=== PATIENT | female | born 1960 | race Caucasian/White ===

== ENCOUNTER 2017-03-11 19:51 | Observation (INO) | payer OTHER ==
[2017-03-11] MEDS ORDERED: MORPHINE SULFATE 2 MG/ML SYRINGE IVP STA (20:26)
[2017-03-11] MEDS ORDERED: NITROGLYCERIN OINT 1 INCH/GM PACKET TOPICAL STA (20:26)
[2017-03-11] MEDS ORDERED: ACETAMINOPHEN TAB 500 MG TAB PO STA (20:27)
[2017-03-11 20:36] LABS: Basophils # (A) 0.1 k/uL (0-0.2); Basophils % (A) 2 %; CH 31.1; CHCM 33.9; Eosinophils # (A) 0.4 k/uL (0-0.7); Eosinophils % (A) 5 %; HDW 2.41; HGB 12.8 gm/dL (11.4-16.0); Luc # (Auto) 0.12; Luc % (Auto) 2; Lymphocytes # (A) 2.7 k/uL (1.0-4.8); Lymphocytes % (A) 34 %; MCHC 33.6 g/dL (31.0-37.0); MCV 92.3 fL (80.0-100.0); Mean Platelet Volume 7.4; Monocytes # (A) 0.6 k/uL (0-1.0); Monocytes % (A) 7 %; Neutrophils # (A) 3.9 k/uL (1.3-7.7); Neutrophils % (A) 50 %; RBC 4.12 m/uL (3.80-5.40); RDW 13.1 % (11.5-15.5); WBC 7.8 k/uL (3.8-10.6); WBC (Perox) 7.99
[2017-03-11 20:45] LABS: ALT 22 U/L (9-52); AST 18 U/L (14-36); Alkaline Phosphatase 65 U/L (38-126); Anion Gap 7 mmol/L; Blood Urea Nitrogen 8 mg/dL (7-17); Calcium 9.1 mg/dL (8.4-10.2); Carbon Dioxide 21 mmol/L (22-30); Chloride 114 mmol/L (98-107); Glucose 99 mg/dL (74-99); Magnesium 1.9 mg/dL (1.6-2.3); Non-African American GFR(MDRD) >60 (>60 ml/min/1.73 sqM); Sodium 142 mmol/L (137-145); Total Bilirubin 0.3 mg/dL (0.2-1.3); Total Protein 6.5 g/dL (6.3-8.2)
[2017-03-11 20:55] LABS: Creatine Kinase 110 U/L (30-135)
[2017-03-11 20:57] LABS: Partial Thromboplastin Time 21.5 sec (22.0-30.0); Prothrombin Time 10.1 sec (9.0-12.0)
[2017-03-11 21:08] LABS: Creatine Kinase MB 1.1 ng/mL (0.0-2.4); Troponin I <0.012 ng/mL (0.000-0.034)
--- NOTE | 2017-03-11 21:17 | XR ---
EXAMINATION TYPE: XR chest 2V DATE OF EXAM: 03/11/2017 COMPARISON: 04/04/2016 HISTORY: Chest pain TECHNIQUE: Frontal and lateral views of the chest are obtained. FINDINGS: Heart and mediastinum are normal. Lungs are clear of consolidation. There are no hilar mas ses. There are chest leads. Bony thorax is intact. IMPRESSION: No active cardiopulmonary disease. No change.
--- NOTE | 2017-03-11 21:18 | ED ---
Chest Pain HPI - General Chief Complaint: Chest Pain Stated Complaint: chest pain Time Seen by Provider: 03/11/17 19:59 Source: patient, EMS Mode of arrival: EMS Limitations: no limitations - History of Present Illness Initial Comments: This 56-year-old female presents with a complaint of some chest pain. She states that this is in the midsternal radiation and it seems to radiate into her neck and into her back. She describes it as a sharp nonpleuritic type of pain which is associated with some mild shortness of breath. She denies any leg pain or swelling or history DVT or PE. She is a strong history of cardiac disease. She apparently has 2 stents and another vessel with 100% blockage. Her last stress test was approximately one year ago. She did take a sublingual nitroglycerin at home with some moderate relief. She received an aspirin via EMS. She also received 4 modems morphine per EMS. No other complaints or modifying factors. - Related Data Home Medications Medication Instructions Recorded Confirmed Aspirin EC [Ecotrin Low Dose] 81 mg PO QAM 12/19/14 03/11/17 ALPRAZolam [Xanax] 0.5 mg PO DAILY PRN 03/11/17 03/11/17 ALPRAZolam [Xanax] 1 mg PO HS 03/11/17 03/11/17 Atorvastatin Calcium [Lipitor] 20 mg PO HS 03/11/17 03/11/17 Clopidogrel [Plavix] 75 mg PO QAM 03/11/17 03/11/17 Fluticasone/Vilanterol [Breo 1 puff INHALATION RT-DAILY 03/11/17 03/11/17 Ellipta 100-25 Mcg Inhaler] Ibuprofen 800 mg PO TID PRN 03/11/17 03/11/17 Omeprazole [PriLOSEC] 20 mg PO DAILY PRN 03/11/17 03/11/17 Tiotropium [place] [Spiriva] 1 cap INHALATION RT-DAILY 03/11/17 03/11/17 Triamcinolone 0.1% Cream [Kenalog] 1 applic TOPICAL BID 03/11/17 03/11/17 Previous Rx's Medication Instructions Recorded Metoprolol Tartrate [Lopressor] 25 mg PO BID #60 tab 09/20/14 Nitroglycerin Sl Tabs [Nitrostat] 0.4 mg SUBLINGUAL Q5M PRN #25 tab 09/20/14 Allergies Allergy/AdvReac Type Severity Reaction Status Date / Time codeine Allergy Rash/Hives Verified 03/11/17 19:58 sumatriptan [From Imitrex] AdvReac Nausea & Verified 03/11/17 19:58 Vomiting Review of Systems ROS Statement: Those systems with pertinent positive or pertinent negative responses have been documented in the HPI. ROS Other: All systems not noted in ROS Statement are negative. Past Medical History Past Medical History: Asthma, Hyperlipidemia, Hypertension, Myocardial Infarction ([place]) Additional Past Medical History / Comment(s): diverticulosis, nephrolithiasis- stones in both kidneys with L side worse, migraines Last Myocardial Infarction Date:: 09/17/14 History of Any Multi-Drug Resistant Organisms: None Reported Past Surgical History: Heart Catheterization With Stent, Hysterectomy Additional Past Surgical History / Comment(s): Lithotripsy, R breast 4 tumors removed all benign, Tumor removed left ear, D & C x 4, colonoscopy, kidney stent , lung Past Anesthesia/Blood Transfusion Reactions: No Reported Reaction Additional Past Anesthesia/Blood Transfusion Reaction / Comment(s): Pt has never recieved blood. Date of Last Stent Placement:: Past Psychological History: Anxiety, Depression Smoking Status: Current every day smoker Past Alcohol Use History: None Reported Past Drug Use History: None Reported - Past Family History Father Family Medical History: Cancer, Myocardial Infarction ([place]) Additional Family Medical History / Comment(s): Father had throat and lung cancer. He was a smoker. Mother Family Medical History: Coronary Artery Disease (CAD), Hypertension Additional Family Medical History / Comment(s): Mother has a hiatal hernia that affects her breathing. She also has heart problems General Exam - General Exam Comments Initial Comments: GENERAL: The patient is well nourished and well hydrated. VITAL SIGNS: Heart rate, blood pressure, respiratory rate reviewed as recorded in nurse's notes. EYES: Pupils are round and reactive. Extraocular movements are intact. No conjunctival / lid redness or swelling. ENT: No external evidence of injury, swelling, or ecchymosis. Airway is patent. Throat is clear. NECK: Nontender. No swelling or evidence of injury. No subcutaneous emphysema. Trachea is midline. No thyroid mass. HEART: Regular rate and rhythm. Good peripheral pulses. LUNGS/CHEST: Breath sounds clear and equal bilaterally. No rales, rhonchi, or wheezes. No ecchymosis, subcutaneous emphysema, or tenderness. ABDOMEN: Abdomen soft without tenderness. No palpable masses or organomegaly. No peritoneal signs. No abdominal wall swelling or ecchymosis. EXTREMITIES: No extremity tenderness. Normal muscle tone and function. No thoracolumbar tenderness. NEUROLOGIC: Sensation is grossly intact. Cranial nerve exam reveals face is symmetrical, tongue is midline, speech is clear. SKIN: No abrasions or ecchymosis is noted. No induration or masses noted. PSYCHIATRIC: Alert and oriented. Appropriate behavior and judgment. Limitations: no limitations Course Vital Signs 03/11/17 03/11/17 03/11/17 19:52 20:30 20:47 Temperature 98.6 F Pulse Rate 91 74 94 Respiratory 20 16 16 Rate Blood Pressure 137/93 126/87 126/95 O2 Sat by Pulse 95 96 95 Oximetry Chest Pain MDM - MDM The patient was seen and examined. All diagnostics were reviewed. An IV is established and she receives some morphine intravenously as well as Nitropaste. She was given Tylenol for headache. She just received an aspirin so additional aspirin was not given. The EKG shows a normal sinus rhythm at a rate of 77. There is no acute ST-T wave changes identified. The chest x-ray does not show any acute abnormalities. The cardiac profile labs are all essentially within normal limits with a negative d-dimer. Troponin is negative as well. It is felt as though she would benefit from admission to the hospital. She is agreeable with this plan. The case will be discussed with internal medicine shortly and she'll be admitted as an observation admission for further evaluation and treatment. Disposition Clinical Impression: Chest pain, Unstable angina Disposition: ADMITTED IP TO THIS [facility] Condition: Fair Time of Disposition: 21:18 Decision Date: 03/11/17 Decision Time: 21:18
[2017-03-11] MEDS ORDERED: HEPARIN SODIUM,PORCINE 5,000 UNIT/ML 1 ML VIAL IV ONE (21:19)
[2017-03-11] MEDS ORDERED: NITROGLYCERIN SL TABS 0.4 MG TAB SUBLINGUAL PRN (21:19)
[2017-03-11] MEDS ORDERED: HEPARIN SODIUM,PORCINE 5,000 UNIT/ML 1 ML VIAL IV PRN (21:19)
[2017-03-11] MEDS ORDERED: PANTOPRAZOLE 40 MG TABLET PO PRN (21:21)
[2017-03-11] MEDS ORDERED: ALPRAZolam 0.5 MG TAB PO PRN (21:21)
[2017-03-11] MEDS ORDERED: IBUPROFEN 800 MG TAB PO PRN (21:21)
[2017-03-11] MEDS ORDERED: NICOTINE 14MG/24HR PATCH TRANSDERM STA (21:22)
[2017-03-11] MEDS ORDERED: HEPARIN SODIUM,PORCINE/D5W PMX 25,000 UNIT in DEXTROSE/WATER 1 500ML.BAG IV SCH (21:30)
[2017-03-11] MEDS: ALPRAZolam 0.5 MG TAB PO SCH ×2 (22:59→23:04)
[2017-03-11] MEDS: MORPHINE SULFATE 4 MG/ML SYRINGE IV PRN (23:00)
[2017-03-11 23:31] VITALS: BMI 19.2
[2017-03-12] MEDS: NITROGLYCERIN OINT 1 INCH/GM PACKET TOPICAL SCH ×3 (01:41→14:53)
[2017-03-12] MEDS: MORPHINE SULFATE 4 MG/ML SYRINGE IV PRN ×2 (01:42→06:41)
[2017-03-12] MEDS ORDERED: SYMBICORT 80-4.5 MCG INHALER INHALATION PRN (03:28)
[2017-03-12 03:38] LABS: Mean Platelet Volume 7.5
[2017-03-12 03:52] LABS: Cholesterol 218 mg/dL (<200); HDL Cholesterol 41 mg/dL (40-60)
[2017-03-12 03:57] LABS: Creatine Kinase 89 U/L (30-135)
[2017-03-12 04:10] LABS: Creatine Kinase MB 1.2 ng/mL (0.0-2.4); Troponin I <0.012 ng/mL (0.000-0.034)
[2017-03-12 08:00] VITALS: RESP 18
[2017-03-12] MEDS ORDERED: SYMBICORT 80-4.5 MCG INHALER INHALATION SCH (08:00)
[2017-03-12] MEDS ORDERED: TIOTROPIUM 18 MCG/PUFF INHALER INHALATION SCH (08:00)
[2017-03-12] MEDS ORDERED: TRIAMCINOLONE 0.1% CREAM 80 GM TUBE TOPICAL SCH (09:00)
[2017-03-12] MEDS ORDERED: METOPROLOL TARTRATE 25 MG TAB PO SCH (09:00)
[2017-03-12] MEDS ORDERED: CLOPIDOGREL 75 MG TAB PO SCH (09:00)
[2017-03-12] MEDS ORDERED: ASPIRIN 325 MG TAB PO SCH (09:00)
[2017-03-12 09:52] LABS: Creatine Kinase 89 U/L (30-135)
[2017-03-12 10:05] LABS: Creatine Kinase MB 1.2 ng/mL (0.0-2.4); Troponin I <0.012 ng/mL (0.000-0.034)
[2017-03-12] MEDS ORDERED: DOBUTamine DRIP for NUC MED 500 MG in DEXTROSE/WATER 1 250ML.BAG IV ONE (10:50)
[2017-03-12] MEDS ORDERED: ACETAMINOPHEN TAB 500 MG TAB PO PRN (11:20)
[2017-03-12] MEDS: KETOROLAC 30 MG/ML 1 ML VIAL IVP STA ×2 (11:22→11:35)
--- NOTE | 2017-03-12 11:36 | ECHOF ---
Referral Reason:cp MEASUREMENTS -------- HEIGHT: 157.5 cm WEIGHT: 62.6 kg BP: 91/58 IVSd: 1.0 cm (0.6 - 1.1) LVIDd: 4.8 cm (3.9 - 5.3) LVPWd: 1.1 cm (0.6 - 1.1) IVSs: 1.1 cm LVIDs: 3.8 cm LVPWs: 1.4 cm LA Diam: 3.2 cm (2.7 - 3.8) Ao Diam: 2.9 cm (2.0 - 3.7) AV Cusp: 1.8 cm (1.5 - 2.6) LA Diam: 3.3 cm (2.7 - 3.8) MV EXCURSION: 14.230 mm (> 18.000) MV EF SLOPE: 96 mm/s (70 - 150) EPSS: 0.9 cm MV E David: 0.61 m/s MV DecT: 211 ms MV A David: 0.62 m/s MV E/A Ratio: 0.98 AR PHT: 525 ms RAP: 5.00 mmHg RVSP: 13.53 mmHg FINDINGS -------- Sinus rhythm. This was a technically adequate study. There is mild concentric left ventricular hypertrophy. Overall left ventricular systolic function is low-normal with, an EF between 50 - 55 %. The right ventricle is normal in size. The left atrial size is normal. The right atrial size is normal. There is mild aortic valve sclerosis. There is no evidence of aortic regurgitation. Mild mitral annular calcification present. Mild mitral regurgitation is present. Mild tricuspid regurgitation present. There is no evidence of pulmonary hypertension. The right ventricular systolic pressure, as measured by Doppler, is 13.53mmHg. There is no pulmonic regurgitation present. The aortic root size is normal. There is no pericardial effusion. CONCLUSIONS -------- 1. There is mild concentric left ventricular hypertrophy. 2. The aortic root size is normal. 3. There is no pericardial effusion. 4. Overall left ventricular systolic function is low-normal with, an EF between 50 - 55 %. 5. There is mild aortic valve sclerosis. 6. Mild mitral annular calcification present. 7. Mild mitral regurgitation is present. 8. Mild tricuspid regurgitation present. 9. There is no evidence of pulmonary hypertension. 10. The right ventricular systolic pressure, as measured by Doppler, is 13.53mmHg. 11. There is no pulmonic regurgitation present. CURTAIN INSPECTOR: Evelyn Grace RDCS
[2017-03-12] MEDS ORDERED: ACETAMINOPHEN IV (For NPO) 1,000 MG in EMPTY BAG 1 BAG IVPB STA (12:17)
[2017-03-12 12:35] VITALS: BP 119/62; PULSE 88; TEMP 97.4
[2017-03-12] MEDS ORDERED: BUTA/APAP/CAF/COD 50-325-40-30 CAP PO STA (14:24)
--- NOTE | 2017-03-12 14:26 | P.CRDCN ---
History of Present Illness Consult date: 03/12/17 History of present illness: This is a 56-year-old female who presented to the emergency department with complaints of chest pain with radiation into the jaw. She states she was out in her garage doing some organizing when the pain came on. She took sublingual nitroglycerin and sat down and the pain subsided. She denies nausea, vomiting, dizziness, diaphoresis or shortness of breath associated with the pain. She has a significant history of coronary artery disease with stent placement, anxiety and chronic tobacco abuse. She follows with Dr. ASTRID Berry in the office. She also states she has been under extreme stress lately with her family. Her aunt's in the intensive care unit with a very poor prognosis and her uncle was just recently hospitalized for heart attack for which she is the primary caregiver. She states she recently had a nodule removed from the right lower lobe, and was told she has 1-2 nodules in the right upper lobe. Biopsies of removed nodule is negative for cancer. Troponins are negative 3, triglycerides 274, LDL 122, HDL 41, total cholesterol 218, x-ray shows no acute cardio pulmonary disease, EKG shows no ST-T elevations no QRS abnormalities and a normal sinus mechanism. She takes Prilosec 20 mg by mouth daily as needed, sublingual nitroglycerin as needed, Lopressor 25 mg by mouth twice a day, Plavix 75 mg by mouth daily, Lipitor 20 mg by mouth daily, aspirin 81 mg by mouth daily. He is also a chronic tobacco abuser. Review of Systems REVIEW OF SYSTEMS: Patient denies any chest discomfort. No shortness of breath. No diaphoresis. He denies dizziness, blurred vision, double vision. She complains of dyspnea on exertion due to recent pulmonary disease. Patient denies any stomach discomfort. No nausea, vomiting. No hematochezia. No hematemesis. Denies any black stools or blood in his stools. No syncope. No palpitations. No cough. No recent fever or chills. Denies dysuria or hematuria. No muscle weakness or numbness. Past Medical History Past Medical History: Asthma, COPD, Hyperlipidemia, Hypertension, Myocardial Infarction ([place]), Skin Disorder Additional Past Medical History / Comment(s): diverticulosis, nephrolithiasis- stones in both kidneys with L side worse, migraines, skin sensitive to sun exposure Last Myocardial Infarction Date:: 09/17/14 History of Any Multi-Drug Resistant Organisms: None Reported Past Surgical History: Cholecystectomy, Heart Catheterization With Stent, Hysterectomy Additional Past Surgical History / Comment(s): Lithotripsy, R breast 4 tumors removed all benign, Tumor removed left ear, D & C x 4, colonoscopy egd, kidney stent, lung RLL mass. Past Anesthesia/Blood Transfusion Reactions: No Reported Reaction Additional Past Anesthesia/Blood Transfusion Reaction / Comment(s): Pt has never recieved blood. Date of Last Stent Placement:: Past Psychological History: Anxiety, Depression Additional Psychological History / Comment(s): Pt states she takes xanax and recently had it increased after her heart attack and that it helps with the anxiety. She lives at home with 4 children ages ranging between 4 yr old to 19 yr old. The 19 yr old is her nephew and the others are her own children. She is normally independent. She drives a car. She uses no assistive devices and has no home care. Smoking Status: Current every day smoker Past Alcohol Use History: None Reported Additional Past Alcohol Use History / Comment(s): Pt states she started smoking at age 19 yrs and has recently decreased her smoking to less than 1/2 ppd. She is trying to quit. Past Drug Use History: None Reported - Past Family History Father Family Medical History: Cancer, Myocardial Infarction ([place]) Additional Family Medical History / Comment(s): Father had throat and lung cancer. He was a smoker. Mother Family Medical History: Coronary Artery Disease (CAD), Hypertension Additional Family Medical History / Comment(s): Mother has a hiatal hernia that affects her breathing. She also has heart problems Medications and Allergies Home Medications Medication Instructions Recorded Confirmed Type Aspirin EC [Ecotrin Low Dose] 81 mg PO QAM 12/19/14 03/11/17 History ALPRAZolam [Xanax] 0.5 mg PO DAILY PRN 03/11/17 03/11/17 History ALPRAZolam [Xanax] 1 mg PO HS 03/11/17 03/11/17 History Atorvastatin Calcium [Lipitor] 20 mg PO HS 03/11/17 03/11/17 History Clopidogrel [Plavix] 75 mg PO QAM 03/11/17 03/11/17 History Fluticasone/Vilanterol [Breo 1 puff INHALATION RT-DAILY 03/11/17 03/11/17 History Ellipta 100-25 Mcg Inhaler] Ibuprofen 800 mg PO TID PRN 03/11/17 03/11/17 History Omeprazole [PriLOSEC] 20 mg PO DAILY PRN 03/11/17 03/11/17 History Tiotropium [place] [Spiriva] 1 cap INHALATION RT-DAILY 03/11/17 03/11/17 History Triamcinolone 0.1% Cream [Kenalog] 1 applic TOPICAL BID 03/11/17 03/11/17 History Allergies Allergy/AdvReac Type Severity Reaction Status Date / Time codeine Allergy Rash/Hives Verified 03/11/17 19:58 sumatriptan [From Imitrex] AdvReac Nausea & Verified 03/11/17 19:58 Vomiting Physical Exam Vitals: Vital Signs Temp Pulse Pulse Resp BP BP BP 03/12/17 08:20 96/51 03/12/17 08:00 18 03/12/17 07:59 97.7 F 75 18 79/49 73/47 03/12/17 04:12 97.9 F 76 16 91/58 03/12/17 04:00 74 16 03/11/17 23:30 84 16 03/11/17 22:49 76 16 115/71 03/11/17 22:06 98.0 F 86 16 129/75 03/11/17 20:47 94 16 126/95 03/11/17 20:30 74 16 126/87 03/11/17 19:52 98.6 F 91 20 137/93 Pulse Ox 03/12/17 08:20 03/12/17 08:00 03/12/17 07:59 95 03/12/17 04:12 93 L 03/12/17 04:00 03/11/17 23:30 03/11/17 22:49 93 L 03/11/17 22:06 97 03/11/17 20:47 95 03/11/17 20:30 96 03/11/17 19:52 95 Intake and Output 03/11/17 03/12/17 03/12/17 22:59 06:59 14:59 Intake Total 112.149 Balance 112.149 Intake: Intake, IV Titration 112.149 Amount Heparin Sodium,Porcine/ 112.149 D5w Pmx 25,000 unit In Dextrose/Water 1 500ml. bag @ 12 UNITS/KG/HR 15. 02 mls/hr IV .Q24H [facility] Rx #:[id number] Other: # Voids 1 Weight 62.596 kg 62.596 kg GENERAL: This is a 56-year-old female in no apparent distress at the time of my examination. She appears significantly older than stated age. HEENT: Head is atraumatic, normocephalic. Pupils are equal, round. Sclerae anicteric. Conjunctivae are clear. Mucous membranes of the mouth are moist. Neck is supple. There is no jugular venous distention. No carotid bruit is heard. LUNGS: Clear to auscultation no wheezes, rales or rhonchi. No chest wall tenderness is noted on palpation or with deep breathing. HEART: Regular rate and rhythm without murmurs, rubs or gallops. S1 and S2 heard. ABDOMEN: Soft, nontender. Bowel sounds are heard. No organomegaly noted. EXTREMITIES: 2+ peripheral pulses with no evidence of peripheral edema and no calf tenderness noted. NEUROLOGIC: Patient is awake, alert and oriented x3. Results 03/12/17 03:17 03/11/17 20:29 Cardiac Enzymes 03/11/17 03/11/17 03/12/17 Range/Units 20:29 20:29 : AST 18 (14-36) U/L CK-MB (CK-2) 1.1 1.2 (0.0-2.4) ng/mL Troponin I <0.012 <0.012 (0.000-0.034) ng/mL Coagulation 03/11/17 03/12/17 Range/Units 20:29 03:17 PT 10.1 (9.0-12.0) sec APTT 21.5 L 41.6 H (22.0-30.0) sec Lipids 03/12/17 Range/Units 03:17 Triglycerides 274 H (<150) mg/dL Cholesterol 218 H (<200) mg/dL HDL Cholesterol 41 (40-60) mg/dL CBC 03/11/17 03/12/17 Range/Units 20:29 03:17 WBC 7.8 (3.8-10.6) k/uL RBC 4.12 (3.80-5.40) m/uL Hgb 12.8 (11.4-16.0) gm/dL Hct 38.0 (34.0-46.0) % Plt Count 295 257 (150-450) k/uL Comprehensive Metabolic Panel 03/11/17 Range/Units 20:29 Sodium 142 (137-145) mmol/L Potassium 4.0 (3.5-5.1) mmol/L Chloride 114 H (98-107) mmol/L Carbon Dioxide 21 L (22-30) mmol/L BUN 8 (7-17) mg/dL Creatinine 0.83 (0.52-1.04) mg/dL Glucose 99 (74-99) mg/dL Calcium 9.1 (8.4-10.2) mg/dL AST 18 (14-36) U/L ALT 22 (9-52) U/L Alkaline Phosphatase 65 (38-126) U/L Total Protein 6.5 (6.3-8.2) g/dL Albumin 3.9 (3.5-5.0) g/dL Current Medications Generic Name Dose Route Start Last Admin Trade Name Freq PRN Reason Stop Dose Admin Alprazolam 0.5 mg 03/11/17 21:21 Xanax PO DAILY PRN Anxiety Alprazolam 1 mg 03/12/17 21:00 03/11/17 23:04 Xanax PO 1 mg HS [facility] Administration Aspirin 325 mg 03/12/17 09:00 Aspirin PO DAILY [facility] Atorvastatin Calcium 20 mg 03/12/17 21:00 Lipitor PO HS [facility] Budesonide/Formoterol Fumarate 2 puff 03/12/17 08:00 Symbicort 80-4.5 Mcg Inhaler INHALATION RT-BID [facility] Clopidogrel Bisulfate 75 mg 03/12/17 09:00 Plavix PO QAM [facility] Heparin Sodium (Porcine) 0 unit 03/11/17 21:19 Heparin IV Q6HR PRN Low PTT Protocol Heparin Sodium/Dextrose 25,000 500 mls @ 15.02 mls/hr 03/11/17 21:30 05:22 unit/ IV Solution IV 13.91 units/kg/hr .Q24H CM 17.42 mls/hr Protocol Titration 12 UNITS/KG/HR Ibuprofen 800 mg 03/11/17 21:21 Motrin PO TID PRN Pain Metoprolol Tartrate 25 mg 03/12/17 09:00 Lopressor PO BID CM Morphine Sulfate 4 mg 03/11/17 21:19 03/12/17 06:41 Morphine Sulfate (Inj) IV 4 mg Q3H PRN Administration Chest Pain Nitroglycerin 1 inch 03/12/17 00:00 03/12/17 06:42 Nitro-Bid Oint TOPICAL Not Given Q6HR [facility] Nitroglycerin 0.4 mg 03/11/17 21:19 Nitrostat SUBLINGUAL Q5M PRN Chest Pain Pantoprazole Sodium 40 mg 03/11/17 21:21 Protonix PO DAILY PRN Indigestion Tiotropium [place] 1 puff 03/12/17 08:00 Spiriva INHALATION RT-DAILY CM Triamcinolone Acetonide 1 applic 03/12/17 09:00 03/12/17 06:41 Kenalog TOPICAL 1 applic BID CM Administration Intake and Output 03/11/17 03/12/17 03/12/17 22:59 06:59 14:59 Intake Total 112.149 Balance 112.149 Intake: Intake, IV Titration 112.149 Amount Heparin Sodium,Porcine/ 112.149 D5w Pmx 25,000 unit In Dextrose/Water 1 500ml. bag @ 12 UNITS/KG/HR 15. 02 mls/hr IV .Q24H [facility] Rx #:[id number] Other: # Voids 1 Weight 62.596 kg 62.596 kg 03/12/17 03:17 03/11/17 20:29 - Imaging and Cardiology Stress echo: pending (Mild concentric left ventricular hypertrophy, ejection fraction 50-55%, mild aortic valve sclerosis, mild mitral calcification, mild mitral regurgitation, mild tricuspid regurgitation, no evidence of pulmonary hypertension with a right ventricular systolic pressure 13.53 mmHg.) Echo: report reviewed - EKG Interpretation EKG: sinus rhythm, normal QRS, normal ST/T, no acute changes Assessment and Plan Plan: ASSESSMENT 1. Chest pain, atypical 2. History of coronary artery disease with stent placement 2014 3. Dyslipidemia 4. Anxiety 5. Chronic tobacco abuse PLAN We will obtain an echocardiogram, and a dobutamine stress echo will be performed. We will increase patient's Lipitor to 80 mg by mouth daily. If her stress test is normal she can be discharged home. She should follow-up with Dr. ASTRID Berry in 2 weeks. Nurse Practitioner note has been reviewed, I agree with a documented findings and plan of care. Patient was seen and examined.
[2017-03-12] MEDS ORDERED: ONDANSETRON 4 MG/2 ML VIAL IVP STA (14:30)
[2017-03-12] MEDS ORDERED: ATORVASTATIN 80 MG TAB PO SCH (14:30)
--- NOTE | 2017-03-12 16:57 | P.HPIM ---
History of Present Illness 56-year-old female who presented to the emergency department with complaints of chest pain pressure-like sensation moderate with radiation into the jaw. She states she was out in her garage doing some organizing when the pain came on. She took sublingual nitroglycerin and sat down and the pain subsided. Her pain completely resolved at this point of time her chest pain is nonpleuritic not associated with food. She denies nausea, vomiting, dizziness, diaphoresis or shortness of breath associated with the pain. She has a significant history of coronary artery disease with stent placement, anxiety and chronic tobacco abuse. She also states she has been under extreme stress lately with her family. . Biopsies of removed nodule is negative for cancer. Troponins are negative 3, , x-ray shows no acute cardio pulmonary disease, EKG shows no ST-T elevations no QRS abnormalities and a normal sinus mechanism. . He is also a chronic tobacco abuser. Patient is complaining of severe headache secondary to her migraine which was precipitated by sublingual nitroglycerin or nitroglycerin patch she was given here Review of Systems REVIEW OF SYSTEMS: CONSTITUTIONAL: No fever, no malaise, no fatigue. HEENT: No recent visual problems or hearing problems. Denied any sore throat. CARDIOVASCULAR: No chest pain, orthopnea, PND, no palpitations, no syncope. PULMONARY: No shortness of breath, no cough, no hemoptysis. GASTROINTESTINAL: No diarrhea, no nausea, no vomiting, no abdominal pain. Normoactive bowel sounds. NEUROLOGICAL: no weakness, no numbness. HEMATOLOGICAL: Denies any bleeding or petechiae. GENITOURINARY: Denies any burning micturition, frequency, or urgency. MUSCULOSKELETAL/RHEUMATOLOGICAL: Denies any joint pain, swelling, or any muscle pain. ENDOCRINE: Denies any polyuria or polydipsia. The rest of the 14-point review of systems is negative. Past Medical History Past Medical History: Asthma, COPD, Hyperlipidemia, Hypertension, Myocardial Infarction (NH), Skin Disorder Additional Past Medical History / Comment(s): diverticulosis, nephrolithiasis- stones in both kidneys with L side worse, migraines, skin sensitive to sun exposure Last Myocardial Infarction Date:: 09/17/14 History of Any Multi-Drug Resistant Organisms: None Reported Past Surgical History: Cholecystectomy, Heart Catheterization With Stent, Hysterectomy Additional Past Surgical History / Comment(s): Lithotripsy, R breast 4 tumors removed all benign, Tumor removed left ear, D & C x 4, colonoscopy egd, kidney stent, lung RLL mass. Past Anesthesia/Blood Transfusion Reactions: No Reported Reaction Additional Past Anesthesia/Blood Transfusion Reaction / Comment(s): Pt has never recieved blood. Date of Last Stent Placement:: Past Psychological History: Anxiety, Depression Additional Psychological History / Comment(s): Pt states she takes xanax and recently had it increased after her heart attack and that it helps with the anxiety. She lives at home with 4 children ages ranging between 4 yr old to 19 yr old. The 19 yr old is her nephew and the others are her own children. She is normally independent. She drives a car. She uses no assistive devices and has no home care. Smoking Status: Current every day smoker Past Alcohol Use History: None Reported Additional Past Alcohol Use History / Comment(s): Pt states she started smoking at age 19 yrs and has recently decreased her smoking to less than 1/2 ppd. She is trying to quit. Past Drug Use History: None Reported - Past Family History Father Family Medical History: Cancer, Myocardial Infarction (NH) Additional Family Medical History / Comment(s): Father had throat and lung cancer. He was a smoker. Mother Family Medical History: Coronary Artery Disease (CAD), Hypertension Additional Family Medical History / Comment(s): Mother has a hiatal hernia that affects her breathing. She also has heart problems Medications and Allergies Home Medications Medication Instructions Recorded Confirmed Type Aspirin EC [Ecotrin Low Dose] 81 mg PO QAM 12/19/14 03/11/17 History ALPRAZolam [Xanax] 0.5 mg PO DAILY PRN 03/11/17 03/11/17 History ALPRAZolam [Xanax] 1 mg PO HS 03/11/17 03/11/17 History Atorvastatin Calcium [Lipitor] 20 mg PO HS 03/11/17 03/11/17 History Clopidogrel [Plavix] 75 mg PO QAM 03/11/17 03/11/17 History Fluticasone/Vilanterol [Breo 1 puff INHALATION RT-DAILY 03/11/17 03/11/17 History Ellipta 100-25 Mcg Inhaler] Ibuprofen 800 mg PO TID PRN 03/11/17 03/11/17 History Omeprazole [PriLOSEC] 20 mg PO DAILY PRN 03/11/17 03/11/17 History Tiotropium [place] [Spiriva] 1 cap INHALATION RT-DAILY 03/11/17 03/11/17 History Triamcinolone 0.1% Cream [Kenalog] 1 applic TOPICAL BID 03/11/17 03/11/17 History Allergies Allergy/AdvReac Type Severity Reaction Status Date / Time codeine Allergy Rash/Hives Verified 03/11/17 19:58 sumatriptan [From Imitrex] AdvReac Nausea & Verified 03/11/17 19:58 Vomiting Physical Exam Vitals: Vital Signs Temp Pulse Pulse Resp BP BP BP 03/12/17 12:34 97.4 F L 88 119/62 03/12/17 12:00 18 03/12/17 08:20 96/51 03/12/17 08:00 18 03/12/17 07:59 97.7 F 75 18 79/49 73/47 03/12/17 04:12 97.9 F 76 16 91/58 03/12/17 04:00 74 16 03/11/17 23:30 84 16 03/11/17 22:49 76 16 115/71 03/11/17 22:06 98.0 F 86 16 129/75 03/11/17 20:47 94 16 126/95 03/11/17 20:30 74 16 126/87 03/11/17 19:52 98.6 F 91 20 137/93 Pulse Ox 03/12/17 12:34 92 L 03/12/17 12:00 03/12/17 08:20 03/12/17 08:00 03/12/17 07:59 95 03/12/17 04:12 93 L 03/12/17 04:00 03/11/17 23:30 03/11/17 22:49 93 L 03/11/17 22:06 97 03/11/17 20:47 95 03/11/17 20:30 96 03/11/17 19:52 95 Intake and Output 03/12/17 03/12/17 03/12/17 06:59 14:59 22:59 Intake Total 112.149 360 Balance 112.149 360 Intake: Intake, IV Titration 112.149 Amount Heparin Sodium,Porcine/ 112.149 D5w Pmx 25,000 unit In Dextrose/Water 1 500ml. bag @ 12 UNITS/KG/HR 15. 02 mls/hr IV .Q24H CM Rx #:[id number] Oral 360 Other: # Voids 1 Weight 62.596 kg PHYSICAL EXAMINATION: GENERAL: The patient is alert and oriented x3, not in any acute distress. Well developed, well nourished. HEENT: Pupils are round and equally reacting to light. EOMI. No scleral icterus. No conjunctival pallor. Normocephalic, atraumatic. No pharyngeal erythema. No thyromegaly. CARDIOVASCULAR: S1 and S2 present. No murmurs, rubs, or gallops. PULMONARY: Chest is clear to auscultation, no wheezing or crackles. ABDOMEN: Soft, nontender, nondistended, normoactive bowel sounds. No palpable organomegaly. MUSCULOSKELETAL: No joint swelling or deformity. EXTREMITIES: No cyanosis, clubbing, or pedal edema. NEUROLOGICAL: Gross neurological examination did not reveal any focal deficits. SKIN: No rashes. Results CBC & Chem 7: 03/12/17 03:17 03/11/17 20:29 Labs: Abnormal Lab Results - Last 24 Hours (Table) 03/11/17 03/11/17 03/12/17 Range/Units 20:29 20:29 03:17 APTT 21.5 L (22.0-30.0) sec Chloride 114 H (98-107) mmol/L Carbon Dioxide 21 L (22-30) mmol/L Triglycerides 274 H (<150) mg/dL Cholesterol 218 H (<200) mg/dL LDL Cholesterol, Calc 122 H (0-99) mg/dL 03/12/17 Range/Units 03:17 APTT 41.6 H (22.0-30.0) sec Chloride (98-107) mmol/L Carbon Dioxide (22-30) mmol/L Triglycerides (<150) mg/dL Cholesterol (<200) mg/dL LDL Cholesterol, Calc (0-99) mg/dL Thrombosis Risk Factor Assmnt - Choose All That Apply Each Factor Represents 1 point: Abnormal pulmonary function (COPD), Age 41-60 years Thrombosis Risk Factor Assessment Total Risk Factor Score: 2 Thrombosis Risk Factor Assessment Level: Low Risk Assessment and Plan Plan: #1 chest pain: Rule out acute coronary syndromes, patient underwent stress test which was negative for any inducible ischemia. Patient chest pain is probably related to anxiety which resolved at this point of time. #2 headache: Migrainous in nature, we'll give her a dose of Fioricet before she leaves. #3 history of coronary artery disease with stent placed in 2014. Continue her home medications for this #4 dyslipidemia: Patient's LDL is elevated Lipitor dose will be increased upon discharge. #5 anxiety disorder #6 chronic tobacco use counseling was provided.
--- NOTE | 2017-03-12 16:58 | P.DS ---
Providers Date of admission: 03/11/17 21:19 Attending physician: Denzel Barba Consults: 03/11/17 21:19 Consult Physician Urgent Consulting Provider: Stoney Cheney Consult Reason/Comments: cp Do you want consulting provider notified?: Yes [facility]: Please refer to my HPI Patient Condition at Discharge: Fair Plan - Discharge Summary New Discharge Prescriptions: New Atorvastatin [Lipitor] 80 mg PO DAILY #30 tab Discontinued Atorvastatin Calcium [Lipitor] 20 mg PO HS No Action Metoprolol Tartrate [Lopressor] 25 mg PO BID #60 tab Nitroglycerin Sl Tabs [Nitrostat] 0.4 mg SUBLINGUAL Q5M PRN #25 tab PRN Reason: Chest Pain Aspirin EC [Ecotrin Low Dose] 81 mg PO QAM Clopidogrel [Plavix] 75 mg PO QAM Omeprazole [PriLOSEC] 20 mg PO DAILY PRN PRN Reason: Indigestion Ibuprofen 800 mg PO TID PRN PRN Reason: Pain Fluticasone/Vilanterol [Breo Ellipta 100-25 Mcg Inhaler] 1 puff INHALATION RT -DAILY Tiotropium [place] [Spiriva] 1 cap INHALATION RT-DAILY Triamcinolone 0.1% Cream [Kenalog] 1 applic TOPICAL BID ALPRAZolam [Xanax] 1 mg PO HS ALPRAZolam [Xanax] 0.5 mg PO DAILY PRN PRN Reason: Anxiety Discharge Medication List Metoprolol Tartrate [Lopressor] 25 mg PO BID #60 tab 09/20/14 [Rx] Nitroglycerin Sl Tabs [Nitrostat] 0.4 mg SUBLINGUAL Q5M PRN #25 tab 09/20/14 [Rx ] Aspirin EC [Ecotrin Low Dose] 81 mg PO QAM 12/19/14 [History] ALPRAZolam [Xanax] 0.5 mg PO DAILY PRN 03/11/17 [History] ALPRAZolam [Xanax] 1 mg PO HS 03/11/17 [History] Clopidogrel [Plavix] 75 mg PO QAM 03/11/17 [History] Fluticasone/Vilanterol [Breo Ellipta 100-25 Mcg Inhaler] 1 puff INHALATION RT- DAILY 03/11/17 [History] Ibuprofen 800 mg PO TID PRN 03/11/17 [History] Omeprazole [PriLOSEC] 20 mg PO DAILY PRN 03/11/17 [History] Tiotropium [place] [Spiriva] 1 cap INHALATION RT-DAILY 03/11/17 [History] Triamcinolone 0.1% Cream [Kenalog] 1 applic TOPICAL BID 03/11/17 [History] Atorvastatin [Lipitor] 80 mg PO DAILY #30 tab 03/12/17 [Rx] Follow up Appointment(s)/Referral(s): Camden Berry MD [STAFF PHYSICIAN] - 1 Week Patient Instructions/Handouts: Chest Pain (DC) Discharge Disposition: HOME SELF-CARE
[2017-03-12] MEDS ORDERED: ATORVASTATIN 20 MG TAB PO SCH (21:00)
--- NOTE | 2017-03-16 07:41 | EST ---
Referral Reason:chest pain MEASUREMENTS -------- HEIGHT: 180.3 cm WEIGHT: 62.6 kg BP: 113/76 FINDINGS -------- The patient received intravenous dobutamine beginning at 10 mcg/kg/min, increasing to 20 mcg/kg/min and 30 mcg/kg/min in 3 minute stages plus XX mg atropine. Max Heart Rate: 163 % of Max Predicted Heart Rate: 98% Rest Heart Rate: 77 Rest BP: 113/76 Max BP: 161/73 Mets Achieved: N/A The test was stopped because the target heart rate was achieved. Sinus rhythm. In response to stress, the ECG showed no ST-T wave changes (see exercise report for details). occasional pvcs were noted. LV size, wall thickness and systolic function are normal, with an EF of 60%. At recovery dobutamine stress there was appropriate augmentation of systolic function of all segments with decrease in cavity size. CONCLUSIONS -------- 1. Sinus rhythm. 2. In response to stress, the ECG showed no ST-T wave changes (see exercise report for details). 3. occasional pvcs were noted. 4. LV size, wall thickness and systolic function are normal, with an EF of 60%. 5. At recovery dobutamine stress there was appropriate augmentation of systolic function of all segments with decrease in cavity size. 6. No 2D echocardiographic evidence of inducible ischemia to achieved workload. 7. No 2D echocardiographic evidence of inducible ischemia to pharmacologic stress. SURGICAL ASSISTANT CERTIFIED: Henry Montaño RDCS MTDD
== END 2017-03-12 15:46 | disposition home or self-care (01) ==
LOC: EC 19:51 → 3OBS 21:19
PROVIDERS: ADMIT Hospitalist; ATTEND Hospitalist
DX: R07.89 Other chest pain (principal); I25.10 Atherosclerotic heart disease of native coronary artery without angina pectoris; Z95.5 Presence of coronary angioplasty implant and graft; J45.909 Unspecified asthma, uncomplicated; E78.5 Hyperlipidemia, unspecified; I10 Essential (primary) hypertension; I25.2 Old myocardial infarction; F41.9 Anxiety disorder, unspecified; F32.9 Major depressive disorder, single episode, unspecified; F17.200 Nicotine dependence, unspecified, uncomplicated; Z63.79 Other stressful life events affecting family and household; J44.9 Chronic obstructive pulmonary disease, unspecified; L98.9 Disorder of the skin and subcutaneous tissue, unspecified; Z88.5 Allergy status to narcotic agent; Z88.8 Allergy status to other drugs, medicaments and biological substances; Z79.899 Other long term (current) drug therapy; Z79.02 Long term (current) use of antithrombotics/antiplatelets; Z79.82 Long term (current) use of aspirin; Z79.51 Long term (current) use of inhaled steroids; G43.909 Migraine, unspecified, not intractable, without status migrainosus
CPT/HCPCS: 96376 ×4; 96365 ×2; 96375 ×3; 93005 ×2; 96366 ×2; 99285; 36415; 94640 ×2; 93017; 93306; 85379; 83880; 80061; 80053; 82550 ×2; 82553 ×2; 83735; 84484 ×2; 85025; 85049; 85610; 85730 ×2; 71020; G0378 ×2; C8928; S4990; J1250; J2270 ×3; J1644 ×2; J2405; 93350

== ENCOUNTER 2017-10-16 13:01 | Emergency (ER) | payer OTHER ==
[2017-10-16 13:12] VITALS: PULSE 94; TEMP 98.1
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
[2017-10-16] MEDS ORDERED: METOCLOPRAMIDE 5 MG/ML 2 ML VIAL IM STA (15:19)
[2017-10-16] MEDS ORDERED: MORPHINE SULFATE 4 MG/ML SYRINGE IM STA (15:19)
[2017-10-16 16:07] VITALS: BP 146/77; RESP 18
== END 2017-10-16 16:06 | disposition home or self-care (01) ==
LOC: EC 13:01
DX: S09.90XA Unspecified injury of head, initial encounter (principal); J44.9 Chronic obstructive pulmonary disease, unspecified; I25.2 Old myocardial infarction; F32.9 Major depressive disorder, single episode, unspecified; F41.9 Anxiety disorder, unspecified; F17.200 Nicotine dependence, unspecified, uncomplicated; Z79.82 Long term (current) use of aspirin; Z79.01 Long term (current) use of anticoagulants; Z79.899 Other long term (current) drug therapy; Z88.5 Allergy status to narcotic agent; Z88.8 Allergy status to other drugs, medicaments and biological substances; Y08.09XA Assault by strike by other specified type of sport equipment, initial encounter; Y92.009 Unspecified place in unspecified non-institutional (private) residence as the place of occurrence of the external cause
CPT/HCPCS: 70450; 99283; 96372 ×2; J2270; J2765

== ENCOUNTER → 2018-01-25 | Outpatient (CLI) | payer OTHER ==
--- NOTE | 2018-01-26 09:10 | MM ---
Reason for exam: clinical finding. Last mammogram was performed 3 years and 8 months ago. History: Patient is postmenopausal. Benign excisional biopsy of the right breast, 1997. Physical Findings: Nurse did not find any significant physical abnormalities on exam. MG Diagnostic Mammo w CAD JAYSON Bilateral CC and MLO view(s) were taken. Prior study comparison: May 17, 2014, bilateral MG diagnostic mammo w CAD JAYSON. The breast tissue is heterogeneously dense. This may lower the sensitivity of mammography. There is chronic nodularity in the left breast. There is no discrete abnormality. These results were verbally communicated with the patient and result sheet given to the patient on 01/25/18. ASSESSMENT: Incomplete: need additional imaging evaluation, BI-RAD 0 RECOMMENDATION: Ultrasound of the right breast. (pain)
--- NOTE | 2018-01-26 09:48 | USB ---
Reason for exam: additional evaluation requested from abnormal screening. History: Patient is postmenopausal. Benign excisional biopsy of the right breast, 1997. US Breast RT Right complete breast ultrasound includes all four quadrants, the retroareolar region and axilla. Finding demonstrates benign lymph node 9 o'clock position zone C. These results were verbally communicated with the patient and result sheet given to the patient on 01/25/18. ASSESSMENT: Negative, BI-RAD 1 RECOMMENDATION: Routine screening mammogram of both breasts in 1 year. Manage on a clinical basis with regard to pain.
== END | disposition home or self-care (01) ==
LOC: RADMAMWWP 13:32
PROVIDERS: ATTEND Internal Medicine
DX: R92.8 Other abnormal and inconclusive findings on diagnostic imaging of breast (principal); N64.4 Mastodynia; N63.10 Unspecified lump in the right breast, unspecified quadrant; N63.20 Unspecified lump in the left breast, unspecified quadrant
CPT/HCPCS: 77066

== ENCOUNTER 2018-04-17 15:28 | Observation (INO) | payer OTHER ==
[2018-04-17] MEDS ORDERED: ASPIRIN 81 MG PO STA (15:41)
[2018-04-17] MEDS ORDERED: NITROGLYCERIN OINT 1 INCH/GM PACKET TOPICAL STA ×2 (15:41→16:39)
--- NOTE | 2018-04-17 15:46 | ED ---
General Adult HPI - General Chief complaint: Chest Pain Stated complaint: chest pain Time Seen by Provider: 04/17/18 15:30 Source: patient, RN notes reviewed Mode of arrival: wheelchair Limitations: no limitations - History of Present Illness Initial comments: This a 57-year-old female with a past medical history significant for smoking and coronary artery disease. Patient comes in today complaining of right jaw pain and chest discomfort. Patient states this lasted about 10 minutes and after that she started noticing palpitations. Patient states the pain is better in her chest but she still has a little jaw pain and occasional palpitation. Patient denies any worsening difficulty breathing. Patient denies any nausea or vomiting. Patient denies any abdominal pain. Patient denies any episodes of diaphoresis. Patient states she was lightheaded earlier when she was ambulating. Patient denies any headache patient denies numbness or weakness. Patient denies any recent fever chills or cough. Patient denies any leg edema or calf tenderness. - Related Data Home Medications Medication Instructions Recorded Confirmed Aspirin EC [Ecotrin Low Dose] 81 mg PO QAM 12/19/14 04/17/18 ALPRAZolam [Xanax] 1 mg PO BID PRN 03/11/17 04/17/18 Ibuprofen 800 mg PO TID PRN 03/11/17 04/17/18 Salmeterol Xinafoate [Serevent 1 puff INHALATION RT-BID 04/17/18 04/17/18 Diskus] Umeclidinium [place] [Incruse 1 puff INHALATION RT-DAILY 04/17/18 04/17/18 Ellipta] Previous Rx's Medication Instructions Recorded Metoprolol Tartrate [Lopressor] 25 mg PO BID #60 tab 09/20/14 Nitroglycerin Sl Tabs [Nitrostat] 0.4 mg SUBLINGUAL Q5M PRN #25 tab 09/20/14 Atorvastatin [Lipitor] 80 mg PO DAILY #30 tab 03/12/17 Allergies Allergy/AdvReac Type Severity Reaction Status Date / Time codeine Allergy Rash/Hives Verified 04/17/18 15:49 sumatriptan [From Imitrex] AdvReac Nausea & Verified 04/17/18 15:49 Vomiting Review of Systems ROS Statement: Those systems with pertinent positive or pertinent negative responses have been documented in the HPI. ROS Other: All systems not noted in ROS Statement are negative. Past Medical History Past Medical History: Asthma, COPD, Hyperlipidemia, Hypertension, Myocardial Infarction ([place]), Skin Disorder Additional Past Medical History / Comment(s): diverticulosis, nephrolithiasis- stones in both kidneys with L side worse, migraines, skin sensitive to sun exposure Last Myocardial Infarction Date:: 09/17/14 History of Any Multi-Drug Resistant Organisms: None Reported Past Surgical History: Cholecystectomy, Heart Catheterization With Stent, Hysterectomy Additional Past Surgical History / Comment(s): Lithotripsy, R breast 4 tumors removed all benign, Tumor removed left ear, D & C x 4, colonoscopy egd, kidney stent, lung RLL mass. Past Anesthesia/Blood Transfusion Reactions: No Reported Reaction Additional Past Anesthesia/Blood Transfusion Reaction / Comment(s): Pt has never recieved blood. Date of Last Stent Placement:: Past Psychological History: Anxiety, Depression Smoking Status: Current every day smoker Past Alcohol Use History: None Reported Past Drug Use History: None Reported - Past Family History Father Family Medical History: Cancer, Myocardial Infarction ([place]) Additional Family Medical History / Comment(s): Father had throat and lung cancer. He was a smoker. Mother Family Medical History: Coronary Artery Disease (CAD), Hypertension Additional Family Medical History / Comment(s): Mother has a hiatal hernia that affects her breathing. She also has heart problems General Exam - General Exam Comments Initial Comments: GENERAL: Patient is well-developed and well-nourished. Patient is nontoxic and well- hydrated and is in mild distress. ENT: Neck is soft and supple. No significant lymphadenopathy is noted. Oropharynx is clear. Moist mucous membranes. Neck has full range of motion without eliciting any pain. EYES: The sclera were anicteric and conjunctiva were pink and moist. Extraocular movements were intact and pupils were equal round and reactive to light. Eyelids were unremarkable. PULMONARY: Unlabored respirations. Good breath sounds bilaterally. No audible rales rhonchi or wheezing was noted. CARDIOVASCULAR: There is a regular rate and rhythm without any murmurs gallops or rubs. ABDOMEN: Soft and nontender with normal bowel sounds. No palpable organomegaly was noted. There is no palpable pulsatile mass. SKIN: Skin is clear with no lesions or rashes and otherwise unremarkable. NEUROLOGIC: Patient is alert and oriented x3. Cranial nerves II through XII are grossly intact. Motor and sensory are also intact. Normal speech, volume and content. Symmetrical smile. MUSCULOSKELETAL: Normal extremities with adequate strength and full range of motion. No lower extremity swelling or edema. No calf tenderness. LYMPHATICS: No significant lymphadenopathy is noted PSYCHIATRIC: Normal psychiatric evaluation. Limitations: no limitations Course Vital Signs 04/17/18 04/17/18 15:30 16:40 Temperature 97.8 F Pulse Rate 84 84 Respiratory 20 16 Rate Blood Pressure 146/89 165/99 O2 Sat by Pulse 98 96 Oximetry Medical Decision Making - Medical Decision Making EKG shows sinus rhythm with frequent PVCs at 79 bpm TN interval is 124 QRS is 84 Q-T intervals 408 QTC is 467. EKG shows no ST segment elevation or depression. Chest x-ray shows no acute abnormality - Lab Data Result diagrams: 04/17/18 15:57 04/17/18 15:57 Lab Results 04/17/18 04/17/18 04/17/18 Range/Units 15:57 15:57 15:57 WBC 9.5 (3.8-10.6) k/uL RBC 4.80 (3.80-5.40) m/uL Hgb 14.4 (11.4-16.0) gm/dL Hct 44.1 (34.0-46.0) % MCV 91.9 (80.0-100.0) fL MCH 30.0 (25.0-35.0) pg MCHC 32.6 (31.0-37.0) g/dL RDW 13.3 (11.5-15.5) % Plt Count 371 (150-450) k/uL Neutrophils % 61 % Lymphocytes % 27 % Monocytes % 5 % Eosinophils % 4 % Basophils % 2 % Neutrophils # 5.9 (1.3-7.7) k/uL Lymphocytes # 2.6 (1.0-4.8) k/uL Monocytes # 0.5 (0-1.0) k/uL Eosinophils # 0.3 (0-0.7) k/uL Basophils # 0.1 (0-0.2) k/uL PT (9.0-12.0) sec INR (<1.2) APTT (22.0-30.0) sec Sodium 140 (137-145) mmol/L Potassium 4.6 (3.5-5.1) mmol/L Chloride 109 H (98-107) mmol/L Carbon Dioxide 20 L (22-30) mmol/L Anion Gap 11 mmol/L BUN 12 (7-17) mg/dL Creatinine 1.11 H (0.52-1.04) mg/dL Est GFR (CKD-EPI)AfAm 65 (>60 ml/min/1.73 sqM) Est GFR (CKD-EPI)NonAf 56 (>60 ml/min/1.73 sqM) Glucose 105 H (74-99) mg/dL Calcium 10.0 (8.4-10.2) mg/dL Magnesium 2.1 (1.6-2.3) mg/dL Total Bilirubin 0.4 (0.2-1.3) mg/dL AST 28 (14-36) U/L ALT 22 (9-52) U/L Alkaline Phosphatase 98 (38-126) U/L Total Creatine Kinase 78 (30-135) U/L CK-MB (CK-2) 0.9 (0.0-2.4) ng/mL CK-MB (CK-2) Rel Index 1.2 Troponin I <0.012 (0.000-0.034) ng/mL Total Protein 7.6 (6.3-8.2) g/dL Albumin 4.4 (3.5-5.0) g/dL 04/17/18 Range/Units 15:57 WBC (3.8-10.6) k/uL RBC (3.80-5.40) m/uL Hgb (11.4-16.0) gm/dL Hct (34.0-46.0) % MCV (80.0-100.0) fL MCH (25.0-35.0) pg MCHC (31.0-37.0) g/dL RDW (11.5-15.5) % Plt Count (150-450) k/uL Neutrophils % % Lymphocytes % % Monocytes % % Eosinophils % % Basophils % % Neutrophils # (1.3-7.7) k/uL Lymphocytes # (1.0-4.8) k/uL Monocytes # (0-1.0) k/uL Eosinophils # (0-0.7) k/uL Basophils # (0-0.2) k/uL PT 9.4 (9.0-12.0) sec INR 0.9 (<1.2) APTT 22.4 (22.0-30.0) sec Sodium (137-145) mmol/L Potassium (3.5-5.1) mmol/L Chloride (98-107) mmol/L Carbon Dioxide (22-30) mmol/L Anion Gap mmol/L BUN (7-17) mg/dL Creatinine (0.52-1.04) mg/dL Est GFR (CKD-EPI)AfAm (>60 ml/min/1.73 sqM) Est GFR (CKD-EPI)NonAf (>60 ml/min/1.73 sqM) Glucose (74-99) mg/dL Calcium (8.4-10.2) mg/dL Magnesium (1.6-2.3) mg/dL Total Bilirubin (0.2-1.3) mg/dL AST (14-36) U/L ALT (9-52) U/L Alkaline Phosphatase (38-126) U/L Total Creatine Kinase (30-135) U/L CK-MB (CK-2) (0.0-2.4) ng/mL CK-MB (CK-2) Rel Index Troponin I (0.000-0.034) ng/mL Total Protein (6.3-8.2) g/dL Albumin (3.5-5.0) g/dL Disposition Clinical Impression: PVCs (premature ventricular contractions), Unstable angina Disposition: ADMITTED IP TO THIS [facility] Referrals: Vijaya Candelaria MD [Primary Care Provider] - 1-2 days Time of Disposition: 16:42
[2018-04-17 16:08] LABS: Basophils # (A) 0.1 k/uL (0-0.2); Basophils % (A) 2 %; Eosinophils # (A) 0.3 k/uL (0-0.7); Eosinophils % (A) 4 %; HCT 44.1 % (34.0-46.0); HGB 14.4 gm/dL (11.4-16.0); Lymphocytes # (A) 2.6 k/uL (1.0-4.8); Lymphocytes % (A) 27 %; MCHC 32.6 g/dL (31.0-37.0); MCV 91.9 fL (80.0-100.0); Mean Platelet Volume 6.9; Monocytes # (A) 0.5 k/uL (0-1.0); Monocytes % (A) 5 %; Neutrophils # (A) 5.9 k/uL (1.3-7.7); Neutrophils % (A) 61 %; Platelet Count 371 k/uL (150-450); RDW 13.3 % (11.5-15.5); WBC 9.5 k/uL (3.8-10.6)
[2018-04-17 16:16] LABS: INR 0.9 (<1.2); Prothrombin Time 9.4 sec (9.0-12.0)
[2018-04-17 16:19] LABS: Creatine Kinase 78 U/L (30-135)
[2018-04-17 16:22] LABS: Partial Thromboplastin Time 22.4 sec (22.0-30.0)
[2018-04-17 16:28] LABS: Albumin 4.4 g/dL (3.5-5.0); Magnesium 2.1 mg/dL (1.6-2.3); Potassium 4.6 mmol/L (3.5-5.1); Total Bilirubin 0.4 mg/dL (0.2-1.3); Total Protein 7.6 g/dL (6.3-8.2)
--- NOTE | 2018-04-17 16:28 | XR ---
EXAMINATION TYPE: XR chest 2V DATE OF EXAM: 04/17/2018 COMPARISON: Prior chest x-ray March 11, 2017 HISTORY: History of heart attack 2 years ago with chest pain TECHNIQUE: Frontal and lateral views of the chest are obtained. FINDINGS: There is chronic parenchymal change without new suspicious focal air space opacity, pleura l effusion, or pneumothorax seen. There are stable left basilar linear scarring and/or atelectasis T he cardiac silhouette size is stable and upper limits of normal. The osseous structures are intact. IMPRESSION: Chronic changes without new acute cardiopulmonary process.
[2018-04-17 16:32] LABS: Creatine Kinase MB 0.9 ng/mL (0.0-2.4); Troponin I <0.012 ng/mL (0.000-0.034)
[2018-04-17] MEDS ORDERED: HEPARIN SODIUM,PORCINE 5,000 UNIT/ML 1 ML VIAL IV ONE (16:32)
[2018-04-17 16:42] VITALS: RESP 16
[2018-04-17] MEDS ORDERED: NITROGLYCERIN SL TABS 0.4 MG TAB SUBLINGUAL PRN (16:43)
[2018-04-17] MEDS ORDERED: HEPARIN SOD,PORK IN 0.45% NACL 25,000 UNIT in 0.45% NACL 1 500ML.BAG IV SCH (16:45)
[2018-04-17] MEDS ORDERED: IBUPROFEN 800 MG TAB PO PRN (16:59)
[2018-04-17] MEDS ORDERED: ALPRAZolam 1 MG TAB PO PRN (16:59)
[2018-04-17] MEDS ORDERED: ACETAMINOPHEN TAB 500 MG TAB PO PRN (17:01)
[2018-04-17] MEDS ORDERED: NITROGLYCERIN OINT 1 INCH/GM PACKET TOPICAL SCH (18:00)
[2018-04-17] MEDS ORDERED: TEMAZEPAM 15 MG CAP PO PRN (18:30)
[2018-04-17] MEDS: METOPROLOL TARTRATE 25 MG TAB PO SCH (19:38)
[2018-04-17] MEDS: NICOTINE 14MG/24HR PATCH TRANSDERM SCH (19:38)
[2018-04-17 19:56] VITALS: BMI 27.9
[2018-04-17] MEDS: FORMOTEROL FUMARATE 20 MCG/2 ML NEBU INHALATION SCH (20:11)
[2018-04-17] MEDS ORDERED: ATORVASTATIN 20 MG TAB PO SCH (21:00)
[2018-04-17 22:38] LABS: Creatine Kinase 69 U/L (30-135)
[2018-04-17 22:49] LABS: Troponin I <0.012 ng/mL (0.000-0.034)
--- NOTE | 2018-04-17 22:58 | HP ---
HISTORY AND PHYSICAL DATE OF SERVICE: 04/17/2018 CHIEF COMPLAINT: Chest pain. HISTORY OF PRESENT ILLNESS: This 57-year-old woman with a past medical history of multiple medical problems including asthma, COPD, hypertension, hyperlipidemia, history of myocardial infarction, CAD/stent being followed by Dr. Candelaria in the outpatient setting was complaining of heart palpitations. The patient also had chest discomfort also right jaw pain and discomfort, also lasts for 10 minutes and patient came to [facility] and was admitted for further evaluation and treatment. There is no history of headache, loss of consciousness, seizures. No history of any shortness of breath, hematochezia or melena at this time. PAST MEDICAL HISTORY: History of asthma, COPD, hypertension, hypertension, myocardial infarction, CAD , stent, cholecystectomy, anxiety/depression. MEDICATIONS: Prior to admission include home medications are: 1. Incruse Ellipta 1 puff b.i.d. daily. 2. Serevent 1 puff b.i.d. 3. Nitrostat 0.4 mg q.4h p.r.n. 4. Lopressor 25 mg b.i.d. 5. Ibuprofen 800 mg t.i.d. p.r.n. 6. Lipitor 80 mg daily. 7. Aspirin low Dose 81 mg q.a.m. 8. Xanax 1 mg b.i.d. p.r.n. ALLERGIES: CODEINE AND IMITREX. FAMILY HISTORY: History of cancer and myocardial infarction. SOCIAL HISTORY: History of smoking on a daily basis. No history of alcohol intake. REVIEW OF SYSTEMS: ENT: No diminished vision. No diminished hearing. CARDIOVASCULAR: As mentioned earlier. RESPIRATORY: As mentioned earlier. GI: No nausea or vomiting. no dysuria. NERVOUS SYSTEM: No numbness or weakness. ALLERGY: No asthma or hayfever. MUSCULOSKELETAL as mentioned earlier. HEMATOLOGY/ONCOLOGY: No history of anemia. ENDOCRINE: No history of diabetes or hypothyroidism. CONSTITUTIONAL: As mentioned earlier. Dermatology: Negative. Rheumatology: Negative. Psychiatry: As mentioned earlier. PHYSICAL EXAMINATION: GENERAL: The patient is alert and oriented x3. VITAL SIGNS: Pulse 80, blood pressure 128/77, respiration 16, temperature 97.8, pulse ox 98% on 2 L. HEENT is conjunctivae normal. Oral mucosa moist. NECK is no jugular venous distention. No carotid bruit. No lymph node enlargement. CARDIOVASCULAR: S1, S2 muffled. RESPIRATORY: Breath sounds diminished in the bases. A few scattered rhonchi. No crackles. ABDOMEN: Soft, nontender. No mass palpable. LEGS: No edema and no swelling. NERVOUS SYSTEM: Higher functions as mentioned earlier. Moves all 4 limbs. No focal motor or sensory deficits. Lymphatics: No lymph nodes palpable in the neck, axillae or groin. SKIN: No ulcer, rash or bleeding. LABS: CBC within normal limits. Sodium 140. Potassium 4.2, creatinine is 1.11. ASSESSMENT: 1. Chest pain, palpitations for evaluation, rule out coronary artery disease, unstable angina. 2. Premature ventricular contractions. 3. Increased creatinine with possible mild acute renal failure. 4. History of asthma, chronic obstructive pulmonary disease. 5. Hypertension. 6. Hyperlipidemia. 7. History of myocardial infarction. 8. History of coronary artery disease, stent. 9. History of nephrolithiasis. 10.Anxiety, depression. 11.Continued ongoing nicotine dependence. RECOMMENDATIONS AND DISCUSSION: In this 57-year-old woman who presented with multiple complex medical issues, we will monitor the patient closely. Continue the current medications, continue unstable angina protocol. Rule out myocardial infarction. Resume the home medications. Cardiology consultation. Prognosis guarded because of multiple complex medical issues. Further recommendations to follow. See orders for details. Copy of dictation being forwarded to Dr. Candelaria who is the primary physician. SIMON / DINESH: [id number] / MTDD
[2018-04-18 04:14] LABS: Basophils # (A) 0.2 k/uL (0-0.2); Basophils % (A) 2 %; Eosinophils # (A) 0.4 k/uL (0-0.7); Eosinophils % (A) 4 %; HCT 42.4 % (34.0-46.0); HGB 13.6 gm/dL (11.4-16.0); Lymphocytes # (A) 2.6 k/uL (1.0-4.8); Lymphocytes % (A) 30 %; MCV 93.8 fL (80.0-100.0); Mean Platelet Volume 7.5; Monocytes # (A) 0.4 k/uL (0-1.0); Monocytes % (A) 5 %; Neutrophils # (A) 5.1 k/uL (1.3-7.7); Neutrophils % (A) 58 %; Platelet Count 332 k/uL (150-450); RBC 4.52 m/uL (3.80-5.40); RDW 13.5 % (11.5-15.5); WBC 8.9 k/uL (3.8-10.6)
[2018-04-18 04:28] LABS: Anion Gap 7 mmol/L; Blood Urea Nitrogen 12 mg/dL (7-17); Calcium 9.3 mg/dL (8.4-10.2); Carbon Dioxide 19 mmol/L (22-30); Chloride 113 mmol/L (98-107); Cholesterol 202 mg/dL (<200); Glucose 97 mg/dL (74-99); HDL Cholesterol 53 mg/dL (40-60); LDL Cholesterol,Calculated 113 mg/dL (0-99); Potassium 4.3 mmol/L (3.5-5.1); Sodium 139 mmol/L (137-145); Triglycerides 179 mg/dL (<150)
[2018-04-18 04:45] LABS: Creatine Kinase 65 U/L (30-135)
[2018-04-18 04:56] LABS: Creatine Kinase MB 0.9 ng/mL (0.0-2.4); Troponin I <0.012 ng/mL (0.000-0.034)
[2018-04-18] MEDS ORDERED: PANTOPRAZOLE 40 MG TABLET PO SCH (07:30)
[2018-04-18 08:35] VITALS: BP 102/65; PULSE 68; TEMP 98.1
[2018-04-18] MEDS ORDERED: ATORVASTATIN 80 MG TAB PO SCH (09:00)
[2018-04-18] MEDS ORDERED: ASPIRIN 81 MG PO SCH (09:00)
[2018-04-18] MEDS ORDERED: ASPIRIN 325 MG TAB PO SCH (09:00)
[2018-04-18] MEDS: IPRATROPIUM 0.5 MG/2.5 ML NEBU INHALATION SCH ×2 (09:03→12:06)
[2018-04-18] MEDS: FORMOTEROL FUMARATE 20 MCG/2 ML NEBU INHALATION SCH (09:03)
[2018-04-18] MEDS: NICOTINE 14MG/24HR PATCH TRANSDERM SCH (09:22)
[2018-04-18] MEDS: METOPROLOL TARTRATE 25 MG TAB PO SCH (09:22)
--- NOTE | 2018-04-18 10:30 | P.CRDCN ---
History of Present Illness History of present illness: Mrs. Herring is a pleasant 57-year-old female past medical history significant for coronary artery disease s/p angioplasty of RCA 2015, COPD, hypertension, dyslipidemia, anxiety and nicotine dependence. She follows with Dr. ASTRID Berry in the office. We have been asked to see her in consultation for chest pain. She states she was having a particularly stressful day yesterday with her teenage daughter. She started feeling palpitations and fluttering in her chest. She denies chest pain, shortness of breath, dizziness, nausea, vomiting or diaphoresis. The fluttering lasted for a few minutes until she took a xanax and the symptoms subsided. She states she is under a lot of stress and frequently has what she describes as anxiety attacks. She states she drinks Pepsi all throughout the day and has recently cut down on smoking. EKG reveals sinus mechanism with no acute ST or T-wave abnormalities. Chest xray negative for an acute cardiopulmonary process with chronic changes. Laboratory data reviewed, hgb 13.6, plt 332, sodium 139, potassium 4.3, creatinine 0.72, cardiac enzymes, LDL 113, HDL 53, triglycerides 179, total cholesterol 202. Current cardiac medications include atorvastatin 20 mg daily, lopressor 25 mg BID and aspirin 81 mg daily. She also takes serevent, ellipta and xanax. Most recent echocardiogram performed in the office December 2017 revealed preserved left ventricular systolic function with ejection fraction 50%. Review of Systems At the time of my exam: CONSTITUTIONAL: Denies fever. Denies chills. EYES: Denies blurred vision. Denies vision changes. Denies eye pain. EARS, NOSE, MOUTH & THROAT: Denies headache. Denies sore throat. Denies ear pain. CARDIOVASCULAR: Denies chest pain. Denies shortness of breath. Denies orthopnea. Denies PND. Denies palpitations. RESPIRATORY: Denies cough. GASTROINTESTINAL: Denies abdominal pain. Denies diarrhea. Denies constipation. Denies nausea. Denies vomiting. MUSCULOSKELETAL: Denies myalgias. INTEGUMENTARY: Denies pruitis. Denies rash. NEUROLOGIC: Denies numbness. Denies tingling. Denies weakness. PSYCHIATRIC: Denies anxiety. Denies depression. ENDOCRINE: Denies fatigue. Denies weight change. Denies polydipsia. Denies polyurina. GENITOURINARY: Denies burning, hematuria or urgency with micturation. HEMATOLOGIC: Denies history of anemia. Denies bleeding. Past Medical History Past Medical History: Asthma, COPD, Hyperlipidemia, Hypertension, Myocardial Infarction ([place]), Skin Disorder Additional Past Medical History / Comment(s): diverticulosis, nephrolithiasis- stones in both kidneys with L side worse, migraines, skin sensitive to sun exposure. Skin injections of steroids, last dose was wednesday04-15-18 Last Myocardial Infarction Date:: 09/17/14 History of Any Multi-Drug Resistant Organisms: None Reported Past Surgical History: Cholecystectomy, Heart Catheterization With Stent, Hysterectomy Additional Past Surgical History / Comment(s): Lithotripsy, R breast 4 tumors removed all benign, Tumor removed left ear, D & C x 4, colonoscopy egd, kidney stent, lung RLL mass with spasms Past Anesthesia/Blood Transfusion Reactions: No Reported Reaction Additional Past Anesthesia/Blood Transfusion Reaction / Comment(s): Pt has never recieved blood. Date of Last Stent Placement:: Smoking Status: Current every day smoker - Past Family History Father Family Medical History: Cancer, Myocardial Infarction ([place]) Additional Family Medical History / Comment(s): Father had throat and lung cancer. He was a smoker. Mother Family Medical History: Coronary Artery Disease (CAD), Hypertension Additional Family Medical History / Comment(s): Mother has a hiatal hernia that affects her breathing. She also has heart problems Medications and Allergies Home Medications Medication Instructions Recorded Confirmed Type Metoprolol Tartrate [Lopressor] 25 mg PO BID #60 tab 09/20/14 04/17/18 Rx Nitroglycerin Sl Tabs [Nitrostat] 0.4 mg SUBLINGUAL Q5M PRN #25 tab 09/20/1404/26 Rx Aspirin EC [Ecotrin Low Dose] 81 mg PO QAM 12/19/14 04/17/18 History ALPRAZolam [Xanax] 1 mg PO BID PRN 03/11/17 04/17/18 History Ibuprofen 800 mg PO TID PRN 03/11/17 04/17/18 History Atorvastatin [Lipitor] 20 mg PO HS 04/17/18 04/17/18 History Salmeterol Xinafoate [Serevent 1 puff INHALATION RT-BID 04/17/18 04/17/18 History Diskus] Umeclidinium [place] [Incruse 1 puff INHALATION RT-DAILY 04/17/18 04/17/18 History Ellipta] Allergies Allergy/AdvReac Type Severity Reaction Status Date / Time codeine Allergy Rash/Hives Verified 04/17/18 19:39 sumatriptan [From Imitrex] AdvReac Nausea & Verified 04/17/18 19:39 Vomiting Physical Exam Vitals: Vital Signs Temp Pulse Pulse Resp BP BP Pulse Ox 04/18/18 08:00 98.1 F 68 16 102/65 97 04/18/18 04:00 97.2 F L 76 16 106/75 95 04/18/18 00:00 97.8 F 85 16 97/66 94 L 04/17/18 20:00 98.4 F 69 16 134/77 98 04/17/18 18:14 82 16 132/89 99 04/17/18 17:00 80 16 128/77 99 04/17/18 16:40 84 16 165/99 96 04/17/18 15:30 97.8 F 84 20 146/89 98 Intake and Output 04/17/18 04/18/18 04/18/18 22:59 06:59 14:59 Intake Total 136.666 Balance 136.666 Intake: Intake, IV Titration 136.666 Amount Heparin Sod,Pork in 0.45% 136.666 NaCl 25,000 unit In 0.45 % NaCl 1 500ml.bag @ 12 UNITS/KG/HR 16.11 mls/hr IV .Q24H [facility] Rx#: [id number] Other: # Voids 1 1 Weight 110.3 kg Blood pressure 102/65 heart rate 68 afebrile maintaining oxygen saturation on room air GENERAL: This is a 57-year-old female in no apparent distress at the time of my examination. Appears older than stated age. HEENT: Head is atraumatic, normocephalic. Pupils are equal, round. Sclerae anicteric. Conjunctivae are clear. Mucous membranes of the mouth are moist. Neck is supple. There is no jugular venous distention. No carotid bruit is heard. LUNGS: Clear to auscultation no wheezes, rales or rhonchi. No chest wall tenderness is noted on palpation or with deep breathing. HEART: Regular rate and rhythm without murmurs, rubs or gallops. S1 and S2 heard. ABDOMEN: Soft, nontender. Bowel sounds are heard. No organomegaly noted. EXTREMITIES: No evidence of peripheral edema and no calf tenderness noted. VASCULAR: Radial and dorsalis pedis pulses palpated, no evidence of clubbing. NEUROLOGIC: Patient is awake, alert and oriented x3. Results 04/18/18 03:49 04/18/18 03:49 Cardiac Enzymes 04/17/18 04/17/18 04/17/18 Range/Units 15:57 15:57 21:38 AST 28 (14-36) U/L CK-MB (CK-2) 0.9 1.0 (0.0-2.4) ng/mL Troponin I <0.012 <0.012 (0.000-0.034) ng/mL 04/18/18 Range/Units 03:49 AST (14-36) U/L CK-MB (CK-2) 0.9 (0.0-2.4) ng/mL Troponin I <0.012 (0.000-0.034) ng/mL Coagulation 04/17/18 04/18/18 04/18/18 Range/Units 15:57 00:48 07:52 PT 9.4 (9.0-12.0) sec APTT 22.4 33.3 H 38.2 H (22.0-30.0) sec Lipids 04/18/18 Range/Units 03:49 Triglycerides 179 H (<150) mg/dL Cholesterol 202 H (<200) mg/dL HDL Cholesterol 53 (40-60) mg/dL CBC 04/17/18 04/18/18 Range/Units 15:57 03:49 WBC 9.5 8.9 (3.8-10.6) k/uL RBC 4.80 4.52 (3.80-5.40) m/uL Hgb 14.4 13.6 (11.4-16.0) gm/dL Hct 44.1 42.4 (34.0-46.0) % Plt Count 371 332 (150-450) k/uL Comprehensive Metabolic Panel 04/17/18 04/18/18 Range/Units 15:57 03:49 Sodium 140 139 (137-145) mmol/L Potassium 4.6 4.3 (3.5-5.1) mmol/L Chloride 109 H 113 H (98-107) mmol/L Carbon Dioxide 20 L 19 L (22-30) mmol/L BUN 12 12 (7-17) mg/dL Creatinine 1.11 H 0.72 (0.52-1.04) mg/dL Glucose 105 H 97 (74-99) mg/dL Calcium 10.0 9.3 (8.4-10.2) mg/dL AST 28 (14-36) U/L ALT 22 (9-52) U/L Alkaline Phosphatase 98 (38-126) U/L Total Protein 7.6 (6.3-8.2) g/dL Albumin 4.4 (3.5-5.0) g/dL Current Medications Generic Name Dose Route Start Last Admin Trade Name Freq PRN Reason Stop Dose Admin Acetaminophen 500 mg 04/17/18 17:01 04/18/18 09:21 Tylenol Tab PO 500 mg Q6HR PRN Administration Fever and/ or Pain Alprazolam 1 mg 04/17/18 16:59 04/17/18 19:47 Xanax PO 1 mg BID PRN Administration Anxiety Aspirin 81 mg 04/18/18 09:00 04/18/18 09:21 Aspirin PO 81 mg QAM CM Administration Atorvastatin Calcium 20 mg 04/17/18 21:00 04/17/18 20:01 Lipitor PO 20 mg HS CM Administration Formoterol Fumarate 20 mcg 04/17/18 20:00 04/18/18 09:03 Perforomist INHALATION Not Given RT-BID CM Ibuprofen 800 mg 04/17/18 16:59 Motrin PO TID PRN Pain Ipratropium [place] 0.5 mg 04/18/18 08:00 04/18/18 09:03 Atrovent Nebulized INHALATION Not Given RT-QID [facility] Metoprolol Tartrate 25 mg 04/17/18 21:00 04/18/18 09:22 Lopressor PO 25 mg BID CM Administration Nicotine 1 patch 04/17/18 17:15 04/18/18 09:22 Habitrol 14mg/24hr Patch TRANSDERM 1 patch DAILY [facility] Administration Nitroglycerin 0.4 mg 04/17/18 16:43 Nitrostat SUBLINGUAL Q5M PRN Chest Pain Pantoprazole Sodium 40 mg 04/18/18 07:30 04/18/18 09:21 Protonix PO 40 mg [id number] CM Administration Temazepam 15 mg 04/17/18 18:30 04/18/18 00:33 Restoril PO 15 mg HS PRN Administration Insomnia Intake and Output 04/17/18 04/18/18 04/18/18 22:59 06:59 14:59 Intake Total 136.666 Balance 136.666 Intake: Intake, IV Titration 136.666 Amount Heparin Sod,Pork in 0.45% 136.666 NaCl 25,000 unit In 0.45 % NaCl 1 500ml.bag @ 12 UNITS/KG/HR 16.11 mls/hr IV .Q24H [facility] Rx#: [id number] Other: # Voids 1 1 Weight 110.3 kg 04/18/18 03:49 04/18/18 03:49 Assessment and Plan Assessment: ASSESSMENT Palpitations with evidence of PVC's on EKG and telemetry. Dyslipidemia History of coronary artery disease s/p angioplasty RCA 2014 COPD Chronic nicotine dependence PLAN Obtain 2D echocardiogram and doppler study to assess cardiac structure and function. Check TSH and free T4. Advised her of cessation of nicotine as well as cutting back on caffeine. Recommend event monitor as an outpatient. This will be set up through the office. Thank you kindly for this consultation. Nurse Practitioner note has been reviewed, I agree with a documented findings and plan of care. Patient was seen and examined.
--- NOTE | 2018-04-18 11:47 | ECHOF ---
Referral Reason:cp MEASUREMENTS -------- HEIGHT: 154.9 cm WEIGHT: 67.1 kg BP: 102/65 RVIDd: 2.5 cm (< 3.3) IVSd: 1.1 cm (0.6 - 1.1) LVIDd: 4.6 cm (3.9 - 5.3) LVPWd: 1.1 cm (0.6 - 1.1) IVSs: 1.4 cm LVIDs: 3.7 cm LVPWs: 1.5 cm LA Diam: 3.2 cm (2.7 - 3.8) LAESV Index (A-L): 19.90 ml/m Ao Diam: 3.0 cm (2.0 - 3.7) AV Cusp: 2.0 cm (1.5 - 2.6) MV EXCURSION: 12.148 mm (> 18.000) MV EF SLOPE: 64 mm/s (70 - 150) EPSS: 1.2 cm MV E David: 0.77 m/s MV DecT: 228 ms MV A David: 0.73 m/s MV E/A Ratio: 1.05 AR PHT: 646 ms FINDINGS -------- Sinus rhythm. This was a technically good study. The left ventricular size is normal. There is borderline concentric left ventricular hypertrophy. Overall left ventricular systolic function is low-normal with, an EF between 50 - 55 %. The right ventricle is normal in size. Normal LA size by volume 22+/-6 ml/m2. The right atrium is normal in size. There is mild aortic valve sclerosis. There is mild aortic regurgitation. The mitral valve is normal. The tricuspid valve appears structurally normal. There is no pulmonic regurgitation present. The aortic root size is normal. Normal inferior vena cava with normal inspiratory collapse consistent with estimated right atrial pre ssure of 5 mmHg. There is no pericardial effusion. CONCLUSIONS -------- 1. Sinus rhythm. 2. This was a technically good study. 3. The left ventricular size is normal. 4. There is borderline concentric left ventricular hypertrophy. 5. Overall left ventricular systolic function is low-normal with, an EF between 50 - 55 %. 6. The right ventricle is normal in size. 7. Normal LA size by volume 22+/-6 ml/m2. 8. The right atrium is normal in size. 9. There is mild aortic valve sclerosis. 10. There is mild aortic regurgitation. 11. The mitral valve is normal. 12. The tricuspid valve appears structurally normal. 13. There is no pulmonic regurgitation present. 14. The aortic root size is normal. 15. Normal inferior vena cava with normal inspiratory collapse consistent with estimated right atrial pressure of 5 mmHg. 16. There is no pericardial effusion. HUMAN RESOURCES CLERK: Gladys Perez RDCS
--- NOTE | 2018-04-18 12:59 | ECHOS ---
STRESS ECHOCARDIOGRAM DATE OF SERVICE: 04/18/2018 INDICATIONS: Chest pain. MEDICATIONS: BASELINE HEART RATE: 96 BASELINE BLOOD PRESSURE: 117/80 MAXIMUM HEART RATE: 131 MAXIMUM BLOOD PRESSURE: 141/88 85% MPHR: 140 100% MPHR: 165 METS: 6.4 MAXIMUM STAGE REACHED: II TOTAL EXERCISE TIME: 4 minutes 30 seconds CLINICAL INFORMATION: Patient was exercised for a total period of 4 minutes and 30 seconds. Peak heart rate of 131 was achieved. Maximum blood pressure of 141/88 mmHg was noted. Resting EKG shows normal sinus rhythm with normal VT interval and QRS duration and nonspecific ST-T changes. During exercise, no significant change from the baseline was noted. No PVCs are recorded. The baseline echocardiographic images reveal normal left ventricular chamber size with normal left ventricular systolic function. In the immediate postexercise period, normal increase in the wall thickness and contractility is noted. FINAL IMPRESSION: This stress echocardiographic study is negative for stress-induced ischemia. EKG portion of the stress test is not suggestive of ischemia. No PVCs were noted. MMODL / IJN: [id number] /
--- NOTE | 2018-04-18 20:32 | DS ---
DISCHARGE SUMMARY FINAL DIAGNOSES: 1. Palpitations, possible PACs. 2. Chest pain, myocardial infarction ruled out. Negative stress echo. 3. Increased creatinine with possible mild acute renal failure, improved. 4. History of asthma, chronic obstructive pulmonary disease. 5. Hypertension. 6. Hyperlipidemia. 7. History of myocardial infarction. 8. History of coronary artery disease, stent. 9. Nephrolithiasis. 10.Anxiety and depression. 11.Continued ongoing nicotine dependence. DISCHARGE DISPOSITION: The patient will be discharged in stable condition with guarded prognosis. HISTORY OF PRESENT ILLNESS: This 57-year-old woman with a past medical history of multiple medical problems was admitted with palpitations and chest discomfort. Myocardial infarction ruled out. Cardiology performed a stress echo which was normal. The patient was recommended to follow in outpatient setting with possible cardiac monitoring. On exam, vitals are stable. Cardiovascular: S1, S2. Abdomen: Soft. Nervous System: No focal deficits. DISCHARGE ADVICE: 1. Diet is cardiac. 2. Activity limited until followup. 3. Follow up with Dr. Candelaria in 2-3 days. 4. Follow with Cardiology as advised. 5. No smoking. MEDICATIONS: 1. Xanax 1 mg b.i.d. p.r.n. 2. Ecotrin 81 mg q.a.m. 3. Lipitor 20 mg q.h.s. 4. Ibuprofen 800 mg t.i.d. p.r.n. 5. Serevent 1 puff b.i.d. 6. Incruse Ellipta 1 puff b.i.d. 7. Lopressor 25 mg p.o. b.i.d. 8. Habitrol 14 daily. 9. Nitrostat 0.4 mg sublingual p.r.n. Once again, the patient is being discharged in stable condition with guarded prognosis. MMODL / IJN: [id number] /
== END 2018-04-18 14:19 | disposition home or self-care (01) ==
LOC: EC 15:28 → 3OBS 16:43
PROVIDERS: ADMIT Hospitalist; ATTEND Hospitalist
DX: R07.89 Other chest pain (principal); R00.2 Palpitations; I49.3 Ventricular premature depolarization; R79.89 Other specified abnormal findings of blood chemistry; I25.10 Atherosclerotic heart disease of native coronary artery without angina pectoris; J44.9 Chronic obstructive pulmonary disease, unspecified; R68.84 Jaw pain; I10 Essential (primary) hypertension; E78.5 Hyperlipidemia, unspecified; L98.9 Disorder of the skin and subcutaneous tissue, unspecified; K57.90 Diverticulosis of intestine, part unspecified, without perforation or abscess without bleeding; F41.9 Anxiety disorder, unspecified; G43.909 Migraine, unspecified, not intractable, without status migrainosus; F32.9 Major depressive disorder, single episode, unspecified; F17.200 Nicotine dependence, unspecified, uncomplicated; Z79.899 Other long term (current) drug therapy; Z88.5 Allergy status to narcotic agent; Z88.8 Allergy status to other drugs, medicaments and biological substances; I25.2 Old myocardial infarction; Z87.442 Personal history of urinary calculi; Z90.49 Acquired absence of other specified parts of digestive tract; Z95.5 Presence of coronary angioplasty implant and graft; Z90.710 Acquired absence of both cervix and uterus; Z82.49 Family history of ischemic heart disease and other diseases of the circulatory system; Z80.1 Family history of malignant neoplasm of trachea, bronchus and lung; Z80.0 Family history of malignant neoplasm of digestive organs; Z81.2 Family history of tobacco abuse and dependence; Z83.79 Family history of other diseases of the digestive system
CPT/HCPCS: 36415; 71046; 80048; 80053; 80061; 82550; 82553; 83735; 84443; 84484; 85025; 85610; 85730; 93005; 93306; 93351; 96365; 96376; 99285

== ENCOUNTER → 2018-07-21 | Outpatient (CLI) | payer OTHER ==
--- NOTE | 2018-07-21 16:33 | CT ---
EXAMINATION TYPE: CT abdomen wo con DATE OF EXAM: 07/21/2018 COMPARISON: CT chest 04/04/2016 INDICATION: right sided abdominal pain post right lung bx DLP: 476 mGycm, Automated exposure control for dose reduction was used. CONTRAST: 0 mL of Isovue 300. Patient refused IV contrast. Study performed with Oral Contrast TECHNIQUE: Axial images were obtained from above the diaphragm to the pubic rami in the axial plane a t 5 mm thick sections. Reconstructed images are reviewed on the computer in the coronal plane. FINDINGS: Limited CT sections are obtained the lung bases. There is a cavitary lesion with irregular candelaria wit hin the right lower lobe measuring 3.3 x 3.1 cm. This is smaller than the 3.5 x 2.[address] ABDOMEN: Liver: Normal Spleen: Normal Pancreas: Normal Adrenal glands: The adrenal glands are normal. Gallbladder: Not visualized. Kidneys: No masses are evident. No hydronephrosis is present. No cysts are present. There may be a punctate calcification at the inferior pole left kidney without evidence of obstruction this would m easure 0.2 cm. Series 3 image 39. Aorta: Vascular calcification is within the aorta. Inferior vena cava: Normal. CT PELVIS: Loops of bowel within the abdomen and pelvis are normal. There are loops of bowel which are incom pletely distended or lack oral contrast limiting their evaluation. Few diverticuli are identified wit hin the proximal sigmoid colon. Appendix: Normal as visualized. Urinary bladder: Superior portion is unremarkable. IMPRESSIONS: 1. Nonobstructing inferior pole left renal stone. 2. Stable right lower lobe cavitary lesion
== END | disposition home or self-care (01) ==
LOC: RADCTMAIN 14:08
PROVIDERS: ATTEND Internal Medicine
DX: N20.0 Calculus of kidney (principal); L98.9 Disorder of the skin and subcutaneous tissue, unspecified; Z88.5 Allergy status to narcotic agent; Z88.8 Allergy status to other drugs, medicaments and biological substances
CPT/HCPCS: 74150

== ENCOUNTER → 2018-11-09 | Outpatient (CLI) | payer MEDICARE, OTHER ==
--- NOTE | 2018-11-09 11:47 | CT ---
EXAMINATION TYPE: CT chest w con DATE OF EXAM: 11/09/2018 COMPARISON: Prior CT chest 04/04/2016 HISTORY: Other nonspecific abnormal findings of lung CT DLP: 231.80 mGycm Automated exposure control for dose reduction was used. CONTRAST: CT scan of the chest is performed with IV Contrast, patient injected with 100 ml mL of Isovue 300. FINDINGS: LUNGS: The lungs are not significantly changed, cavitary appearing focus in the right lower lobe is a gain seen measuring approximately the same dimensions as on prior. There is peripheral soft tissue sh owing a similar appearance to previous exam. Emphysematous changes are present within the lungs. Some patchy density at the right costophrenic angle may represent some localized atelectasis or scar was not seen on prior exam. Minimal dependent atelectatic changes are present. There is no pleural effusi on or pneumothorax seen. The tracheobronchial tree is patent. MEDIASTINUM: There are no greater than 1 cm hilar or mediastinal lymph nodes. No pericardial effusi on is seen. Coronary artery calcification is noted, possible coronary stent placed in the interval AORTA: No additional significant abnormality is seen. OTHER: Patient is post cholecystectomy. Vague low dense focus within the left lobe of the liver on a xial image 52 shows a similar appearance. IMPRESSION: There is no significant interval change. Essentially stable findings.
== END ==
LOC: RADCTMAIN 08:54
PROVIDERS: ATTEND Internal Medicine
DX: R91.8 Other nonspecific abnormal finding of lung field (principal); J98.4 Other disorders of lung; Z88.3 Allergy status to other anti-infective agents; Z88.5 Allergy status to narcotic agent
CPT/HCPCS: 71260; Q9967

== ENCOUNTER 2019-03-02 00:01 | Emergency (ER) | payer OTHER, MEDICARE ==
[2019-03-02] MEDS ORDERED: fentaNYL (PF) 50 MCG/ML 2 ML AMP IVP STA ×2 (00:38→00:39)
[2019-03-02] MEDS ORDERED: SODIUM CHLORIDE 0.9% 1,000 ML IV ONE (00:40)
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
--- NOTE | 2019-03-02 00:57 | XR ---
EXAM: XR Chest, 1 View CLINICAL HISTORY: ITS.REASON XR Reason: Pain TECHNIQUE: Frontal view of the chest. COMPARISON: 04/17/18 chest radiography FINDINGS: Lungs: Unremarkable. No consolidation. Pleural space: Unremarkable. No pneumothorax. Heart: Unremarkable. No cardiomegaly. Mediastinum: Unremarkable. Bones/joints: Unremarkable. IMPRESSION: No acute disease.
--- NOTE | 2019-03-02 01:16 | XR ---
EXAM: XR Right Forearm, 2 Views CLINICAL HISTORY: ITS.REASON XR Reason: Pain TECHNIQUE: Frontal and lateral views of the right forearm. COMPARISON: No relevant prior studies available. FINDINGS: See Impression. IMPRESSION: Status post acute fracture-dislocation at the level of the elbow with fracture of the proximal on the and dislocated proximal ulna and radius relative to the uterus. Could se obtained e dedicated elbow radiography or CT for more detailed assessment. Dedicated humerus radiography may also be useful. Soft tissues show posttraumatic edema along the fracture site.
[2019-03-02] MEDS ORDERED: HYDROmorphone 1 MG/ML 1 ML SYRINGE IVP STA ×2 (01:18→02:10)
[2019-03-02 01:23] LABS: Basophils # (A) 0.1 k/uL (0-0.2); Basophils % (A) 1 %; Eosinophils # (A) 0.2 k/uL (0-0.7); Eosinophils % (A) 1 %; HCT 42.3 % (34.0-46.0); HGB 13.5 gm/dL (11.4-16.0); Lymphocytes % (A) 21 %; MCH 29.6 pg (25.0-35.0); MCHC 31.8 g/dL (31.0-37.0); MCV 93.2 fL (80.0-100.0); Mean Platelet Volume 7.2; Monocytes # (A) 0.6 k/uL (0-1.0); Monocytes % (A) 4 %; Neutrophils # (A) 10.7 k/uL (1.3-7.7); Neutrophils % (A) 72 %; Platelet Count 297 k/uL (150-450); RBC 4.54 m/uL (3.80-5.40); RDW 13.2 % (11.5-15.5); WBC 14.8 k/uL (3.8-10.6)
[2019-03-02 01:29] LABS: INR 0.9 (<1.2); Prothrombin Time 9.6 sec (9.0-12.0)
[2019-03-02 01:33] LABS: ALT 106 U/L (9-52); AST 287 U/L (14-36); African American GFR (CKD) >90 (>60 ml/min/1.73 sqM); Albumin 4.1 g/dL (3.5-5.0); Alcohol <10 mg/dL; Alkaline Phosphatase 94 U/L (38-126); Anion Gap 11 mmol/L; Bilirubin, Delta 0.2 mg/dL (0.0-0.2); Bilirubin,Unconjugated 0.3 mg/dL (0.0-1.1); Blood Urea Nitrogen 6 mg/dL (7-17); Calcium 9.4 mg/dL (8.4-10.2); Carbon Dioxide 16 mmol/L (22-30); Chloride 113 mmol/L (98-107); Glucose 108 mg/dL (74-99); Potassium 4.4 mmol/L (3.5-5.1); Sodium 140 mmol/L (137-145); Total Bilirubin 0.5 mg/dL (0.2-1.3); Total Protein 6.9 g/dL (6.3-8.2)
[2019-03-02 01:37] VITALS: BP 127/95; PULSE 111; RESP 26; TEMP 97.7
[2019-03-02] MEDS ORDERED: ONDANSETRON 4 MG/2 ML VIAL IVP STA (01:38)
[2019-03-02] MEDS ORDERED: DIPH,PERTUS(ACELL)TETVAC-LF 0.5 ML VIAL IM ONE (01:39)
--- NOTE | 2019-03-02 01:41 | XR ---
EXAM: XR Pelvis, 1 or 2 Views CLINICAL HISTORY: ITS.REASON XR Reason: Pain TECHNIQUE: Frontal view of the pelvis. COMPARISON: No relevant prior studies available. FINDINGS: Bones/joints: Unremarkable. No acute fracture. No dislocation. Soft tissues: Unremarkable. IMPRESSION: Normal pelvis x-ray.
--- NOTE | 2019-03-02 01:45 | XR ---
EXAM: XR Right Hand Complete, 3 or More Views CLINICAL HISTORY: ITS.REASON XR Reason: Pain TECHNIQUE: Frontal, lateral and oblique views of the right hand. COMPARISON: No relevant prior studies available. FINDINGS: See the Impression. IMPRESSION: Acute fracture of the proximal portion of the third through fifth metacarpals. Soft tissue gas along the dorsal aspect of the hand indicates lacerations.
--- NOTE | 2019-03-02 02:00 | CT ---
EXAM: CT Head Without Intravenous Contrast CLINICAL HISTORY: ITS.REASON CT Reason: Pain TECHNIQUE: Axial computed tomography images of the head/brain without intravenous contrast. CTDI is 45.2 DLP is 1238 mGy-cm. This CT exam was performed using one or more of the following dose reduction techniques: automated exposure control, adjustment of the mA and/or kV according to patient size, and/or use of iterative reconstruction technique. COMPARISON: No relevant prior studies available. FINDINGS: Brain: Small hyperdense focus along the anterior aspect of the left insular area, for example on image 28 series 201. Consider subarachnoid hemorrhage. No other acute hemorrhage. No acute infarct. Ventricles: Mild age-appropriate atrophy without midline shift or hydrocephalus. Bones/joints: Unremarkable. No acute fracture. Soft tissues: Unremarkable. Sinuses: Blood in the right maxillary sinus. Scattered right ethmoidal air cell mucosal thickening. Mastoid air cells: Unremarkable as visualized. No mastoid effusion. IMPRESSION: Small hyperdense focus along the anterior aspect of the left insular area, raising concern for subarachnoid hemorrhage. EXAM: CT Cervical Spine Without Intravenous Contrast CLINICAL HISTORY: ITS.REASON CT Reason: Pain TECHNIQUE: Axial computed tomography images of the cervical spine without intravenous contrast. CTDI is 9.8 mGy and DLP is 688.4 mGy-cm. This CT exam was performed using one or more of the following dose reduction techniques: automated exposure control, adjustment of the mA and/or kV according to patient size, and/or use of iterative reconstruction technique. COMPARISON: No relevant prior studies available. FINDINGS: Vertebrae: No evidence of acute or healing fracture or malalignment. Discs/spinal canal/neural foramina: Multilevel spine degenerative changes. Emphysema and scarring at the apices. No critical central canal stenosis or apical pneumothorax. Soft tissues: Unremarkable. Vasculature: Atherosclerotic calcifications of the internal carotid arteries of the neck. Lung apices: ous changes and scarring at the lung apices. IMPRESSION: No evidence of acute or healing fracture or malalignment. <MYCVCSECTION> Critical Value Communications 03/02/19 02:06 Verify Receipt Verified receipt with LOLA Godfrey. Report given to Dr. Chen on 03/02 02:05 (-04:00)
--- NOTE | 2019-03-02 02:06 | CT ---
EXAM: CT Maxillofacial Without Intravenous Contrast CLINICAL HISTORY: ITS.REASON CT Reason: Pain TECHNIQUE: Axial computed tomography images of the face without intravenous contrast. CTDI is 9.2 mGy and DLP is 688.40 mGy-cm. This CT exam was performed using one or more of the following dose reduction techniques: automated exposure control, adjustment of the mA and/or kV according to patient size, and/or use of iterative reconstruction technique. COMPARISON: No relevant prior studies available. FINDINGS: Bones/joints: Acute , nondisplaced fracture involving the right orbital floor. Possible acute nondisplaced fracture involving the right lamina papyracea. No other definite acute fractures. Soft tissues: Unremarkable. Orbits: Globes and retrobulbar soft tissues are normal. No radiopaque foreign bodies. Sinuses: Air-fluid level within the right maxillary sinus with dense contents indicating acute hemorrhage. Patchy opacification of the right ethmoidal air cells. Other findings: No airway narrowing. For intracranial findings, see dedicated head CT. IMPRESSION: Acute nondisplaced fracture involving the right orbital floor with blood in the right maxillary sinus.
--- NOTE | 2019-03-02 02:43 | CT ---
EXAM: CT Chest With Intravenous Contrast CLINICAL HISTORY: ITS.REASON CT Reason: trauma TECHNIQUE: Axial computed tomography images of the chest with intravenous contrast. CTDI is 234.0 mGy and DLP is 2182.80 mGy-cm. This CT exam was performed using one or more of the following dose reduction techniques: automated exposure control, adjustment of the mA and/or kV according to patient size, and/or use of iterative reconstruction technique. COMPARISON: No relevant prior studies available. FINDINGS: Lungs: Cavitary mass at the posterior aspect of the right lower lobe with thick irregular wall. No air-fluid levels. Differential includes infectious focus or tumor. This mass measures 4.2 x 3.5 cm. No consolidation. Pleural space: No pleural effusion or pneumothorax. Heart: See below. Bones/joints: No acute displaced fractures. No dislocation. Soft tissues: Unremarkable. Vasculature: No acute aortic traumatic injury. No PE, aortic aneurysm or aortic dissection. No cardiomegaly or pericardial effusion. Lymph nodes: Unremarkable. No enlarged lymph nodes. Other findings: No other cavitary lesions. IMPRESSION: No acute trauma related pathology. Right lower lobe cavitary lesion concerning for infectious focus versus tumor, alternatively. EXAM: CT Abdomen and Pelvis With Intravenous Contrast CLINICAL HISTORY: ITS.REASON CT Reason: trauma TECHNIQUE: Axial computed tomography images of the abdomen and pelvis with intravenous contrast. CTDI is 688.4 mGy and DLP is 2182.80 mGy-cm. This CT exam was performed using one or more of the following dose reduction techniques: automated exposure control, adjustment of the mA and/or kV according to patient size, and/or use of iterative reconstruction technique. COMPARISON: No relevant prior studies available. FINDINGS: Lung bases: Unremarkable. No mass. No consolidation. ABDOMEN: Liver: See below. Gallbladder and bile ducts: See below. Pancreas: See below. Spleen: See below. Adrenals: Unremarkable. No mass. Kidneys and ureters: See below. Stomach and bowel: No hollow viscus or solid organ injury. PELVIS: Appendix: No appendicitis, inflammatory changes of bowel or bowel obstruction. Distal colonic diverticulosis. No acute diverticulitis. Bladder: Unremarkable. No mass. Reproductive: Unremarkable as visualized. ABDOMEN and PELVIS: Intraperitoneal space: No free fluid. No free air. Bones/joints: Acute, displaced right transverse process fractures from L2 to L5 levels. No other acute or healing fracture or malalignment. Soft tissues: Unremarkable. Vasculature: Aorta, liver, spleen, pancreas, gallbladder, and kidneys are unremarkable. No abdominal aortic aneurysm. Lymph nodes: Unremarkable. No enlarged lymph nodes. IMPRESSION: Acute, displaced right transverse process fractures from L2 to L5 levels. No other acute trauma related pathology.
--- NOTE | 2019-03-02 02:57 | CT ---
EXAM: CT Thoracic Spine Without Intravenous Contrast CLINICAL HISTORY: ITS.REASON CT Reason: trauma TECHNIQUE: Axial computed tomography images of the thoracic spine without intravenous contrast. CTDI is 11.1 mGy and DLP is 2182.80 mGy-cm. This CT exam was performed using one or more of the following dose reduction techniques: automated exposure control, adjustment of the mA and/or kV according to patient size, and/or use of iterative reconstruction technique. COMPARISON: No relevant prior studies available. FINDINGS: Vertebrae: Unremarkable. No acute fracture. Discs/spinal canal/neural foramina: No acute findings. No spinal canal stenosis. Soft tissues: Unremarkable. Lungs: Right lower lobe cavitary lesion comparison with chest CT. Emphysema at the upper lungs. IMPRESSION: No acute or healing fracture or malalignment. EXAM: CT Lumbar Spine Without Intravenous Contrast CLINICAL HISTORY: ITS.REASON CT Reason: trauma TECHNIQUE: Axial computed tomography images of the lumbar spine without intravenous contrast. CTDI is 11.1 mGy and DLP is 2182.80 mGy-cm. This CT exam was performed using one or more of the following dose reduction techniques: automated exposure control, adjustment of the mA and/or kV according to patient size, and/or use of iterative reconstruction technique. COMPARISON: No relevant prior studies available. FINDINGS: Vertebrae: No other acute or healing fracture or malalignment. Discs/spinal canal/neural foramina: Acute, displaced fractures involving the right L2-L5 transverse processes. Acute onset structure involving the right L1 transverse processes. No critical central canal stenosis. Soft tissues: Unremarkable. Other findings: Right hand injury is incompletely imaged. See dedicated and radiography. IMPRESSION: Acute fractures involving the L1-L5 right transverse processes.
== END 2019-03-02 02:45 ==
LOC: EC 00:01
DX: S62.302B Unspecified fracture of third metacarpal bone, right hand, initial encounter for open fracture (principal); S62.304B Unspecified fracture of fourth metacarpal bone, right hand, initial encounter for open fracture; S62.306B Unspecified fracture of fifth metacarpal bone, right hand, initial encounter for open fracture; S42.401B Unspecified fracture of lower end of right humerus, initial encounter for open fracture; S06.6X9A Traumatic subarachnoid hemorrhage with loss of consciousness of unspecified duration, initial encounter; S01.81XA Laceration without foreign body of other part of head, initial encounter; S00.511A Abrasion of lip, initial encounter; S80.212A Abrasion, left knee, initial encounter; R00.0 Tachycardia, unspecified; R06.2 Wheezing; M25.551 Pain in right hip; J44.9 Chronic obstructive pulmonary disease, unspecified; E78.5 Hyperlipidemia, unspecified; I10 Essential (primary) hypertension; I25.2 Old myocardial infarction; F17.200 Nicotine dependence, unspecified, uncomplicated; Z88.0 Allergy status to penicillin; Z88.5 Allergy status to narcotic agent; Z88.8 Allergy status to other drugs, medicaments and biological substances; Z79.82 Long term (current) use of aspirin; Z79.899 Other long term (current) drug therapy; Z87.2 Personal history of diseases of the skin and subcutaneous tissue; Z95.5 Presence of coronary angioplasty implant and graft; Z23 Encounter for immunization; Z82.49 Family history of ischemic heart disease and other diseases of the circulatory system; Z80.1 Family history of malignant neoplasm of trachea, bronchus and lung; V43.63XA Car passenger injured in collision with pick-up truck in traffic accident, initial encounter; Y92.410 Unspecified street and highway as the place of occurrence of the external cause
CPT/HCPCS: 99291; 29105; 96365; 96375 ×3; 96376; 96361; 90471; 36415; 86900; 86901; 83880; 80048; 80076; 83690; 84484; 85025; 85610; 86850; 80320; 72170; 73090; 73120; 71045; 72129; 72125; 72132; 70486; 70450; 71260; 74177; 90715; J0690; J2405; J3010; J1170; Q9967

== ENCOUNTER → 2019-06-09 | Outpatient (CLI) | payer OTHER, MEDICARE ==
--- NOTE | 2019-06-10 14:44 | MR ---
EXAMINATION TYPE: MR lumbar spine wo con DATE OF EXAM: 06/09/2019 COMPARISON: None HISTORY: Back pain into rt leg TECHNIQUE: Multiplanar, multisequence images of the lumbar spine were acquired. Lumbar vertebra have normal alignment. Posterior elements are intact. Disc spaces are fairly normal. The neural foramina are widely patent. There is no compression fracture. Sacroiliac joints appear nor mal. There is no lumbar paraspinal mass. IMPRESSION: Normal MR scan of the lumbar spine. No lumbar disc herniation or spinal stenosis. No fracture.
== END | disposition home or self-care (01) ==
LOC: RADMRIMAIN 16:57
PROVIDERS: ATTEND Orthopaedic Surgery Orthopaedic Trauma
DX: M54.5 Low back pain (principal); M79.604 Pain in right leg
CPT/HCPCS: 72148

== ENCOUNTER → 2019-06-27 | Outpatient (CLI) | payer OTHER, MEDICARE ==
--- NOTE | 2019-06-27 12:24 | NM ---
EXAMINATION TYPE: NM bone 3 phase DATE OF EXAM: 06/27/2019 COMPARISON: NONE HISTORY: Pain in right wrist Triple phase bone scintigraphy was performed following the injection of 25.1 mCi Tc 99m MDP. Immedia te images and 3 hours post injection images acquired. FINDINGS: Mild diffuse increased radio pharmaceutical uptake noted to the right forearm, hand and wrist joints as compared to the left. IMPRESSION: Findings may represent complex regional pain syndrome, correlate
== END | disposition home or self-care (01) ==
LOC: RADNMMAIN 07:21
PROVIDERS: ATTEND Orthopaedic Surgery Hand Surgery
DX: M25.531 Pain in right wrist (principal)
CPT/HCPCS: 78315; A9503

== ENCOUNTER → 2019-06-30 | Outpatient (CLI) | payer OTHER, MEDICARE ==
--- NOTE | 2019-06-30 17:17 | MR ---
EXAMINATION TYPE: MR shoulder RT wo con DATE OF EXAM: 06/30/2019 COMPARISON: None HISTORY: Rt shoulder pain, adhesive capsulitis TECHNIQUE: Multiplanar, multisequence imaging of the right shoulder is performed without contrast. FINDINGS: There is motion on the exam. Rotator Cuff: Abnormal increased signal present within the rotator cuff insertion of the infraspinatu s tendon may represent a partial tear, there is increased signal within the rotator cuff tendon sugge stive of tendinosis. Acromioclavicular Joint: Hypertrophic changes at the acromioclavicular joint causes mass effect on th e musculotendinous junction of supraspinatus. Fluid signal is present in the subacromial subdeltoid b ursa. There is a distal acromial spur present. Glenohumeral Joint: Intact. Labrum: Some increased signal within the superior labrum with irregular appearance may represent supe rior labral tear. Biceps Tendon: The long head of biceps is in normal location within bicipital groove. There is fluid signal along the distribution of the tendon. Pseudocysts are present within the humeral head. Bone marrow signal: No focal abnormal marrow signal is appreciated. Other: Suspect some thickening of the inferior glenohumeral ligament. IMPRESSION: Findings consistent with patient's history of adhesive capsulitis, suspect possible associated labral tear, partial tear rotator cuff, correlate for impingement.
== END | disposition home or self-care (01) ==
LOC: RADMRIMAIN 14:41
PROVIDERS: ATTEND Orthopaedic Surgery Orthopaedic Trauma
DX: M75.01 Adhesive capsulitis of right shoulder (principal); M25.611 Stiffness of right shoulder, not elsewhere classified; Z96.89 Presence of other specified functional implants

== ENCOUNTER → 2019-07-13 | Outpatient (CLI) | payer OTHER, MEDICARE ==
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
== END | disposition home or self-care (01) ==
LOC: RADUSWWP 12:57
PROVIDERS: ATTEND Surgery
DX: R60.0 Localized edema (principal)

== ENCOUNTER 2020-01-31 11:24 | Emergency (ER) | payer MEDICARE, OTHER ==
[2020-01-31 11:31] VITALS: TEMP 97.6
[2020-01-31] MEDS ORDERED: ONDANSETRON 4 MG/2 ML VIAL IVP STA (11:59)
[2020-01-31] MEDS ORDERED: SODIUM CHLORIDE 0.9% 1,000 ML IV STA (11:59)
[2020-01-31] MEDS ORDERED: PANTOPRAZOLE 40 MG/10 ML VIAL IVP STA (12:00)
[2020-01-31] MEDS ORDERED: DICYCLOMINE 10 MG/ML 2 ML AMP IM STA (12:00)
[2020-01-31] MEDS ORDERED: KETOROLAC 30 MG/ML 1 ML VIAL IVP STA (12:00)
--- NOTE | 2020-01-31 12:03 | ED ---
Abdominal Pain HPI - General Chief Complaint: Abdominal Pain Stated Complaint: Abd pain Time Seen by Provider: 01/31/20 11:35 Source: patient Mode of arrival: ambulatory Limitations: no limitations - History of Present Illness Initial Comments: Patient is a 59-year-old female with history of diverticulitis presenting to emergency Department with chief complaint of abdominal pain. Patient states the pain started several weeks ago and has been gradually increasing severity. Reports the pain is located in the epigastric and right upper quadrant region. Patient states the pain is on and off, and feels like a cramping sensation. Patient reports increased abdominal bloating and is not able to have large meals. Reports nausea but denies any vomiting, constipation or diarrhea. Denies any night sweats fevers or chills. States the pain is not related to by mouth intake. Denies any vaginal or urinary symptoms. Denies hematuria, hematochezia or melena. Surgical history of hysterectomy with bilateral oophorectomy and cholecystectomy. Patient does report drinking large amounts of Pepsi daily. - Related Data Home Medications Medication Instructions Recorded Confirmed Aspirin EC [Ecotrin Low Dose] 81 mg PO QAM 12/19/14 01/31/20 Atorvastatin [Lipitor] 20 mg PO HS 04/17/18 01/31/20 Salmeterol Xinafoate [Serevent 1 puff INHALATION RT-Q12H 04/17/18 01/31/20 Diskus] Umeclidinium [place] [Incruse 1 puff INHALATION RT-DAILY 04/17/18 01/31/20 Ellipta] ALPRAZolam [Xanax] 0.5 mg PO BID 01/31/20 01/31/20 Acetaminophen Tab [Tylenol Tab] 1,000 mg PO Q8H PRN 01/31/20 01/31/20 Albuterol Inhaler [Ventolin Hfa 2 puff INHALATION RT-QID PRN 01/31/20 01/31/20 Inhaler] Albuterol Nebulized [Ventolin 2.5 mg INHALATION RT-TID PRN 01/31/20 01/31/20 Nebulized] Clotrimazole/Betameth Cream 1 applic TOPICAL BID 01/31/20 01/31/20 [Lotrisone] Fluticasone Propionate 110 Mcg 2 puff INHALATION RT-BID 06/24/20 06/24/20 [Flovent 110 Mcg Inhaler (Mhu)] HYDROcodone/APAP 10-325MG [[place] 1 tab PO Q12H PRN 01/31/20 01/31/20 10-325] Previous Rx's Medication Instructions Recorded Metoprolol Tartrate [Lopressor] 25 mg PO BID #60 tab 09/20/14 Nitroglycerin Sl Tabs [Nitrostat] 0.4 mg SUBLINGUAL Q5M PRN #25 tab 09/20/14 Dicyclomine [Bentyl] 20 mg PO TID #30 tablet 01/31/20 Omeprazole [PriLOSEC] 20 mg PO AC-BRKFST #14 cap 01/31/20 Ondansetron Odt [Zofran Odt] 4 mg PO Q8HR PRN #14 tab 01/31/20 Allergies Allergy/AdvReac Type Severity Reaction Status Date / Time amoxicillin Allergy Rash/Hives Verified 01/31/20 12:21 codeine Allergy Rash/Hives Verified 01/31/20 12:21 sumatriptan [From Imitrex] AdvReac Nausea & Verified 01/31/20 12:21 Vomiting Review of Systems ROS Statement: Those systems with pertinent positive or pertinent negative responses have been documented in the HPI. ROS Other: All systems not noted in ROS Statement are negative. Past Medical History Past Medical History: Asthma, COPD, Hyperlipidemia, Hypertension, Myocardial Infarction (MD), Skin Disorder Additional Past Medical History / Comment(s): diverticulosis, nephrolithiasis- stones in both kidneys with L side worse, migraines, skin sensitive to sun exposure. Skin injections of steroids Last Myocardial Infarction Date:: 09/17/14 History of Any Multi-Drug Resistant Organisms: None Reported Past Surgical History: Cholecystectomy, Heart Catheterization With Stent, Hysterectomy, Orthopedic Surgery Additional Past Surgical History / Comment(s): Lithotripsy, R breast 4 tumors removed all benign, Tumor removed left ear, D & C x 4, colonoscopy egd, kidney stent, lung RLL mass with spasms Right arm surgery Past Anesthesia/Blood Transfusion Reactions: No Reported Reaction Additional Past Anesthesia/Blood Transfusion Reaction / Comment(s): Pt has never recieved blood. Date of Last Stent Placement:: Past Psychological History: Anxiety, Depression Smoking Status: Current some day smoker Past Alcohol Use History: None Reported Past Drug Use History: None Reported - Past Family History Father Family Medical History: Cancer, Myocardial Infarction (MD) Additional Family Medical History / Comment(s): Father had throat and lung cancer. He was a smoker. Mother Family Medical History: Coronary Artery Disease (CAD), Hypertension Additional Family Medical History / Comment(s): Mother has a hiatal hernia that affects her breathing. She also has heart problems General Exam Limitations: no limitations General appearance: alert, in no apparent distress, obese Head exam: Present: atraumatic, normocephalic, normal inspection Eye exam: Present: normal appearance, PERRL, EOMI Pupils: Present: normal accommodation ENT exam: Present: normal exam, normal oropharynx, mucous membranes moist Neck exam: Present: normal inspection, full ROM. Absent: tenderness Respiratory exam: Present: normal lung sounds bilaterally. Absent: respiratory distress, wheezes, rales Cardiovascular Exam: Present: regular rate, normal rhythm, normal heart sounds GI/Abdominal exam: Present: soft, distended (Mild), tenderness (Right upper quadrant and epigastric region.), normal bowel sounds. Absent: guarding, rebou nd, rigid Extremities exam: Present: normal inspection, full ROM. Absent: tenderness Back exam: Present: normal inspection, full ROM. Absent: tenderness Neurological exam: Present: alert, oriented X3 Psychiatric exam: Present: normal affect, normal mood Skin exam: Present: warm, dry, intact, normal color Course Vital Signs 01/31/20 01/31/20 11:26 14:26 Temperature 97.6 F Pulse Rate 82 78 Respiratory 18 16 Rate Blood Pressure 123/79 114/84 O2 Sat by Pulse 99 96 Oximetry Medical Decision Making - Medical Decision Making Patient is a 59-year-old female presenting to emergency Department with a chief complaint of abdominal pain. Patient is not a drinker. Although, she does drink large amounts of Pepsi daily. Patient is to be on omeprazole but then she stopped taking the medication. On exam she has some right upper quadrant and epigastric abdominal tenderness. CBC, CMP and UA are unremarkable. CT of the abdomen and pelvis with contrast reveals no acute processes. In the ED, patient was given fluids, antiemetics, analgesia, antispasmodic and Protonix. A reevaluation patient reports improvement in symptoms. I suspect the patient's symptoms are secondary to drinking large amounts of pop which is very acidic. She doesn't history of gastric ulcers. She denies any melanotic stool or hematochezia. Advised the patient to decrease her Pepsi intake or any pop for that matter. I discharge the patient with Bentyl and Zofran on when necessary basis. She was also discharged with omeprazole. She was given information regarding acid reflux, gastritis and peptic ulcers. She said to follow-up with the primary care. Return parameters were thoroughly discussed the patient was up standing and agreeable. Case discussed with physician. - Lab Data Result diagrams: 01/31/20 12:01/31/20 12:01 Lab Results 01/31/20 01/31/20 01/31/20 Range/Units 12: 12: 12:39 WBC 9.4 (3.8-10.6) k/uL RBC 4.82 (3.80-5.40) m/uL Hgb 14.1 (11.4-16.0) gm/dL Hct 45.4 (34.0-46.0) % MCV 94.1 (80.0-100.0) fL MCH 29.2 (25.0-35.0) pg MCHC 31.0 (31.0-37.0) g/dL RDW 13.4 (11.5-15.5) % Plt Count 323 (150-450) k/uL Neutrophils % 60 % Lymphocytes % 26 % Monocytes % 7 % Eosinophils % 4 % Basophils % 2 % Neutrophils # 5.7 (1.3-7.7) k/uL Lymphocytes # 2.4 (1.0-4.8) k/uL Monocytes # 0.6 (0-1.0) k/uL Eosinophils # 0.4 (0-0.7) k/uL Basophils # 0.2 (0-0.2) k/uL Sodium 138 (137-145) mmol/L Potassium 4.7 (3.5-5.1) mmol/L Chloride 111 H (98-107) mmol/L Carbon Dioxide 16 L (22-30) mmol/L Anion Gap 11 mmol/L BUN 6 L (7-17) mg/dL Creatinine 0.72 (0.52-1.04) mg/dL Est GFR (CKD-EPI)AfAm >90 (>60 ml/min/1.73 sqM) Est GFR (CKD-EPI)NonAf >90 (>60 ml/min/1.73 sqM) Glucose 156 H (74-99) mg/dL Calcium 9.3 (8.4-10.2) mg/dL Total Bilirubin 0.4 (0.2-1.3) mg/dL AST 31 (14-36) U/L ALT 18 (4-34) U/L Alkaline Phosphatase 92 (38-126) U/L Total Protein 7.3 (6.3-8.2) g/dL Albumin 4.2 (3.5-5.0) g/dL Lipase 278 (23-300) U/L Urine Color Light Yellow Urine Appearance Clear (Clear) Urine pH 5.5 (5.0-8.0) Ur Specific [place] 1.010 (1.001-1.035) Urine Protein Negative (Negative) Urine Glucose (UA) Negative (Negative) Urine Ketones Negative (Negative) Urine Blood Negative (Negative) Urine Nitrite Negative (Negative) Urine Bilirubin Negative (Negative) Urine Urobilinogen <2.0 (<2.0) mg/dL Ur Leukocyte Esterase Negative (Negative) Disposition Clinical Impression: Abdominal pain, Abdominal bloating Disposition: HOME SELF-CARE Condition: Stable Instructions (If sedation given, give patient instructions): Abdominal Pain (E D) Additional Instructions: Follow up with primary care. Return to emergency department if symptoms worsen. Avoid drinking any alcohol. Prescriptions: Dicyclomine [Bentyl] 20 mg PO TID #30 tablet Omeprazole [PriLOSEC] 20 mg PO AC-BRKFST #14 cap Ondansetron Odt [Zofran Odt] 4 mg PO Q8HR PRN #14 tab PRN Reason: Nausea Is patient prescribed a controlled substance at d/c from ED?: No Referrals: Vijaya Candelaria MD [Primary Care Provider] - 1-2 days Time of Disposition: 14:12
[2020-01-31 12:47] LABS: Basophils # (A) 0.2 k/uL (0-0.2); Basophils % (A) 2 %; Eosinophils # (A) 0.4 k/uL (0-0.7); Eosinophils % (A) 4 %; HCT 45.4 % (34.0-46.0); HGB 14.1 gm/dL (11.4-16.0); Lymphocytes # (A) 2.4 k/uL (1.0-4.8); Lymphocytes % (A) 26 %; MCH 29.2 pg (25.0-35.0); MCV 94.1 fL (80.0-100.0); Monocytes # (A) 0.6 k/uL (0-1.0); Monocytes % (A) 7 %; Neutrophils # (A) 5.7 k/uL (1.3-7.7); Neutrophils % (A) 60 %; Platelet Count 323 k/uL (150-450); RBC 4.82 m/uL (3.80-5.40); RDW 13.4 % (11.5-15.5); WBC 9.4 k/uL (3.8-10.6)
[2020-01-31 12:48] LABS: Appearance,Urine Clear (Clear); Bilirubin,Urine Negative (Negative); Blood,Urine Negative (Negative); Color,Urine Light Yellow; Glucose,Urine (UA) Negative (Negative); Ketones,Urine Negative (Negative); Leukocyte Esterase,Urine Negative (Negative); Nitrite,Urine Negative (Negative); PH, Urine 5.5 (5.0-8.0); Protein,Urine Negative (Negative); Urobilinogen,Urine <2.0 mg/dL (<2.0)
[2020-01-31 13:18] LABS: ALT 18 U/L (4-34); African American GFR (CKD) >90 (>60 ml/min/1.73 sqM); Albumin 4.2 g/dL (3.5-5.0); Anion Gap 11 mmol/L; Blood Urea Nitrogen 6 mg/dL (7-17); Calcium 9.3 mg/dL (8.4-10.2); Carbon Dioxide 16 mmol/L (22-30); Chloride 111 mmol/L (98-107); Glucose 156 mg/dL (74-99); Non-African American GFR(CKD) >90 (>60 ml/min/1.73 sqM); Sodium 138 mmol/L (137-145); Total Bilirubin 0.4 mg/dL (0.2-1.3); Total Protein 7.3 g/dL (6.3-8.2)
[2020-01-31 13:19] LABS: AST 31 U/L (14-36); Alkaline Phosphatase 92 U/L (38-126); Potassium 4.7 mmol/L (3.5-5.1)
--- NOTE | 2020-01-31 13:43 | CT ---
EXAMINATION TYPE: CT abdomen pelvis w con DATE OF EXAM: 01/31/2020 COMPARISON: None HISTORY: epigastric pain, distention CT DLP: 1152.3 mGycm CONTRAST: CT scan of the abdomen and pelvis is performed without Oral Contrast and with IV Contrast, patient in jected with 100 mL of Isovue 300. FINDINGS: LUNG BASES-: No visible nodule. No infiltrate. LIVER/GB: No calcified gallstones. No space occupying hepatic lesion. Biliary tree is of normal ca liber. PANCREAS: No inflammation. No distinct mass. SPLEEN: No splenic enlargement. No lesion seen. ADRENALS: No nodule. No thickening. KIDNEYS/BLADDER: No hydronephrosis. No nephrolithiasis. No distinct renal mass. Urinary bladder g rossly unremarkable. BOWEL: Normal appendix. Normal bowel caliber. No inflammation. GENITAL ORGANS: No gross abnormality. LYMPH NODES: No greater than 1cm abdominal or pelvic lymph nodes are appreciated. AORTA: No significant abnormality. OSSEOUS STRUCTURES: No significant abnormality is seen. OTHER: No significant additional abnormality is seen. IMPRESSION: 1. No acute process identified at this time.
[2020-01-31 14:27] VITALS: BP 114/84; PULSE 78; RESP 16
== END 2020-01-31 14:26 | disposition home or self-care (01) ==
LOC: EC 11:24
DX: R10.11 Right upper quadrant pain (principal); R14.0 Abdominal distension (gaseous); R11.0 Nausea; J44.9 Chronic obstructive pulmonary disease, unspecified; E78.5 Hyperlipidemia, unspecified; F32.9 Major depressive disorder, single episode, unspecified; F41.9 Anxiety disorder, unspecified; I10 Essential (primary) hypertension; F17.200 Nicotine dependence, unspecified, uncomplicated; I25.2 Old myocardial infarction; Z79.51 Long term (current) use of inhaled steroids; Z79.82 Long term (current) use of aspirin; Z79.899 Other long term (current) drug therapy; Z88.0 Allergy status to penicillin; Z88.5 Allergy status to narcotic agent; Z87.442 Personal history of urinary calculi; Z95.5 Presence of coronary angioplasty implant and graft; Z90.49 Acquired absence of other specified parts of digestive tract; Z98.890 Other specified postprocedural states
CPT/HCPCS: 36415; 80053; 83690; 85025; 81003; 74177; 99284; 96372; 96374; 96375 ×2; 96361; J0500; J2405; J1885; C9113; Q9967

== ENCOUNTER → 2020-02-15 | Outpatient (CLI) | payer MEDICARE, OTHER ==
[2020-02-15 21:29] LABS: Hemoglobin A1C 6.2 % (4.0-6.0)
== END | disposition home or self-care (01) ==
LOC: LABWHC1 11:12
PROVIDERS: ATTEND Internal Medicine
DX: R73.9 Hyperglycemia, unspecified (principal)
CPT/HCPCS: 36415; 83036

== ENCOUNTER → 2020-03-15 | Outpatient (CLI) | payer OTHER ==
--- NOTE | 2020-03-15 23:07 | MR ---
EXAMINATION TYPE: MR shoulder RT wo con DATE OF EXAM: 03/15/2020 COMPARISON: 06/30/2019 HISTORY: Right shoulder pain, difficulty raising arm above head Multiplanar multiecho imaging of the right shoulder was performed without contrast. There is abnormal increased signal in the supraspinatus tendon without retraction. There is full-thic kness defect. There is some spurring at the AC joint. There is slight subacromial joint space narrowi ng. The biceps tendon is intact. Subscapularis tendon is intact. The glenoid mikie appear intact. I see n o evidence of a fracture. There is no evidence of focal bony destructive process. The AC joint is int act. IMPRESSION: There is full-thickness tear of the supraspinatus tendon with increased in the defect compared to old exam. Mild subacromial joint space narrowing unchanged. There is increased soft tissue edema around the supraspinatus tendon compared to old exam.
== END | disposition home or self-care (01) ==
LOC: RADMRIMAIN 10:23
PROVIDERS: ATTEND Physical Medicine & Rehabilitation
DX: M75.121 Complete rotator cuff tear or rupture of right shoulder, not specified as traumatic (principal); M19.011 Primary osteoarthritis, right shoulder; M79.89 Other specified soft tissue disorders; R60.9 Edema, unspecified

== ENCOUNTER 2020-04-19 18:56 | Emergency (ER) | payer MEDICARE, OTHER ==
--- NOTE | 2020-04-19 19:41 | ED ---
General Adult HPI - General Chief complaint: Chest Pain Stated complaint: Chest Pain Time Seen by Provider: 04/19/20 19:04 Source: patient, EMS, RN notes reviewed, old records reviewed Mode of arrival: EMS - History of Present Illness Initial comments: 59-year-old female presented for evaluation of central chest pain, radiating to the jaw. History of CAD status post stents approximately 4 years ago. She states that pain began while at rest. She does report being anxious. No associated vomiting or diaphoresis. Pain is resolved with aspirin nitroglycerin at the time my evaluation. No abdominal pain. No fever, no cough. No dyspnea. - Related Data Home Medications Medication Instructions Recorded Confirmed Aspirin EC [Ecotrin Low Dose] 81 mg PO QAM 12/19/14 01/31/20 Atorvastatin [Lipitor] 20 mg PO HS 04/17/18 01/31/20 Salmeterol Xinafoate [Serevent 1 puff INHALATION RT-Q12H 04/17/18 01/31/20 Diskus] Umeclidinium [place] [Incruse 1 puff INHALATION RT-DAILY 04/17/18 01/31/20 Ellipta] ALPRAZolam [Xanax] 0.5 mg PO BID 01/31/20 01/31/20 Acetaminophen Tab [Tylenol Tab] 1,000 mg PO Q8H PRN 01/31/20 01/31/20 Albuterol Inhaler [Ventolin Hfa 2 puff INHALATION RT-QID PRN 01/31/20 01/31/20 Inhaler] Albuterol Nebulized [Ventolin 2.5 mg INHALATION RT-TID PRN 01/31/20 01/31/20 Nebulized] Clotrimazole/Betameth Cream 1 applic TOPICAL BID 01/31/20 01/31/20 [Lotrisone] Fluticasone Propionate 110 Mcg 2 puff INHALATION RT-BID 01/31/20 01/31/20 [Flovent 110 Mcg Inhaler (Mhu)] HYDROcodone/APAP 10-325MG [[place] 1 tab PO Q12H PRN 01/31/20 01/31/20 10-325] Previous Rx's Medication Instructions Recorded Metoprolol Tartrate [Lopressor] 25 mg PO BID #60 tab 09/20/14 Nitroglycerin Sl Tabs [Nitrostat] 0.4 mg SUBLINGUAL Q5M PRN #25 tab 09/20/14 Dicyclomine [Bentyl] 20 mg PO TID #30 tablet 01/31/20 Omeprazole [PriLOSEC] 20 mg PO AC-BRKFST #14 cap 01/31/20 Ondansetron Odt [Zofran Odt] 4 mg PO Q8HR PRN #14 tab 01/31/20 Allergies Allergy/AdvReac Type Severity Reaction Status Date / Time amoxicillin Allergy Rash/Hives Verified 01/31/20 12:21 codeine Allergy Rash/Hives Verified 01/31/20 12:21 sumatriptan [From Imitrex] AdvReac Nausea & Verified 01/31/20 12:21 Vomiting Review of Systems ROS Statement: Those systems with pertinent positive or pertinent negative responses have been documented in the HPI. ROS Other: All systems not noted in ROS Statement are negative. Past Medical History Past Medical History: Asthma, COPD, Hyperlipidemia, Hypertension, Myocardial Infarction ([place]), Skin Disorder Additional Past Medical History / Comment(s): diverticulosis, nephrolithiasis- stones in both kidneys with L side worse, migraines, skin sensitive to sun exposure. Skin injections of steroids Last Myocardial Infarction Date:: 09/17/14 History of Any Multi-Drug Resistant Organisms: None Reported Past Surgical History: Cholecystectomy, Heart Catheterization With Stent, Hysterectomy, Orthopedic Surgery Additional Past Surgical History / Comment(s): Lithotripsy, R breast 4 tumors removed all benign, Tumor removed left ear, D & C x 4, colonoscopy egd, kidney stent, lung RLL mass with spasms Right arm surgery Past Anesthesia/Blood Transfusion Reactions: No Reported Reaction Additional Past Anesthesia/Blood Transfusion Reaction / Comment(s): Pt has never recieved blood. Date of Last Stent Placement:: Past Psychological History: Anxiety, Depression Smoking Status: Current every day smoker Past Alcohol Use History: None Reported Past Drug Use History: None Reported - Past Family History Father Family Medical History: Cancer, Myocardial Infarction ([place]) Additional Family Medical History / Comment(s): Father had throat and lung cancer. He was a smoker. Mother Family Medical History: Coronary Artery Disease (CAD), Hypertension Additional Family Medical History / Comment(s): Mother has a hiatal hernia that affects her breathing. She also has heart problems General Exam General appearance: alert, in no apparent distress Head exam: Present: atraumatic, normocephalic Eye exam: Present: normal appearance, PERRL ENT exam: Present: normal exam Neck exam: Absent: normal inspection, tenderness, meningismus Respiratory exam: Present: normal lung sounds bilaterally. Absent: respiratory distress, wheezes Cardiovascular Exam: Present: regular rate, normal rhythm GI/Abdominal exam: Present: soft. Absent: distended, tenderness, guarding, rebound Extremities exam: Present: normal inspection, normal capillary refill. Absent: pedal edema Neurological exam: Present: alert, oriented X3, CN II-XII intact. Absent: motor sensory deficit Psychiatric exam: Present: normal affect, normal mood Skin exam: Present: warm, dry, intact. Absent: cyanosis, diaphoretic Course Vital Signs 04/19/20 18:59 Temperature 97.8 F Pulse Rate 97 Respiratory 18 Rate Blood Pressure 139/88 O2 Sat by Pulse 96 Oximetry EKG Findings - EKG Comments: EKG Findings:: EKG: Normal sinus rhythm, no ST segment elevation, rate of 93, MT interval 134, QRS duration 84, QTC 462 Medical Decision Making - Medical Decision Making 49-year-old female presenting with an episode of chest pain. EKG is sinus rhythm with no ST segment elevation, chest x-ray showing some atelectasis and pleural reaction, no other acute findings. Patient is chest pain-free while the emergency department. She does have a known history of coronary artery disease. Workup reveals a normal CBC, normal electrolytes, normal kidney function, patient has a negative initial troponin. I did advise the patient that she will require a chest pain admission for cardiac enzymes, telemetry, cardiology con sultation. Patient declines. She states she will call her java oracle developer on Wednesday which is 2 days from now. She will return with worsening or changing symptoms. I did attempt to encourage the patient to stay as we have not ruled out a coronary cause of her chest pain. She declines. - Lab Data Result diagrams: 04/19/20 19:36 04/19/20 19:36 Lab Results 04/19/20 04/19/20 04/19/20 Range/Units 19:36 19:36 19:36 WBC 9.9 (3.8-10.6) k/uL RBC 4.61 (3.80-5.40) m/uL Hgb 14.0 (11.4-16.0) gm/dL Hct 43.7 (34.0-46.0) % MCV 94.7 (80.0-100.0) fL MCH 30.4 (25.0-35.0) pg MCHC 32.1 (31.0-37.0) g/dL RDW 12.9 (11.5-15.5) % Plt Count 312 (150-450) k/uL Neutrophils % 58 % Lymphocytes % 29 % Monocytes % 6 % Eosinophils % 4 % Basophils % 2 % Neutrophils # 5.7 (1.3-7.7) k/uL Lymphocytes # 2.9 (1.0-4.8) k/uL Monocytes # 0.6 (0-1.0) k/uL Eosinophils # 0.4 (0-0.7) k/uL Basophils # 0.2 (0-0.2) k/uL PT 9.4 (9.0-12.0) sec INR 0.9 (<1.2) APTT 18.4 L (22.0-30.0) sec Sodium 137 (137-145) mmol/L Potassium 4.7 (3.5-5.1) mmol/L Chloride 110 H (98-107) mmol/L Carbon Dioxide 20 L (22-30) mmol/L Anion Gap 7 mmol/L BUN 11 (7-17) mg/dL Creatinine 0.81 (0.52-1.04) mg/dL Est GFR (CKD-EPI)AfAm >90 (>60 ml/min/1.73 sqM) Est GFR (CKD-EPI)NonAf 81 (>60 ml/min/1.73 sqM) Glucose 106 H (74-99) mg/dL Calcium 9.6 (8.4-10.2) mg/dL Magnesium 1.9 (1.6-2.3) mg/dL Total Bilirubin 0.6 (0.2-1.3) mg/dL AST 32 (14-36) U/L ALT 18 (4-34) U/L Alkaline Phosphatase 90 (38-126) U/L Troponin I (0.000-0.034) ng/mL NT-Pro-B Natriuret Pep pg/mL Total Protein 7.2 (6.3-8.2) g/dL Albumin 4.2 (3.5-5.0) g/dL Lipase 441 H (23-300) U/L 04/19/20 04/19/20 Range/Units 19:36 19:36 WBC (3.8-10.6) k/uL RBC (3.80-5.40) m/uL Hgb (11.4-16.0) gm/dL Hct (34.0-46.0) % MCV (80.0-100.0) fL MCH (25.0-35.0) pg MCHC (31.0-37.0) g/dL RDW (11.5-15.5) % Plt Count (150-450) k/uL Neutrophils % % Lymphocytes % % Monocytes % % Eosinophils % % Basophils % % Neutrophils # (1.3-7.7) k/uL Lymphocytes # (1.0-4.8) k/uL Monocytes # (0-1.0) k/uL Eosinophils # (0-0.7) k/uL Basophils # (0-0.2) k/uL PT (9.0-12.0) sec INR (<1.2) APTT (22.0-30.0) sec Sodium (137-145) mmol/L Potassium (3.5-5.1) mmol/L Chloride (98-107) mmol/L Carbon Dioxide (22-30) mmol/L Anion Gap mmol/L BUN (7-17) mg/dL Creatinine (0.52-1.04) mg/dL Est GFR (CKD-EPI)AfAm (>60 ml/min/1.73 sqM) Est GFR (CKD-EPI)NonAf (>60 ml/min/1.73 sqM) Glucose (74-99) mg/dL Calcium (8.4-10.2) mg/dL Magnesium (1.6-2.3) mg/dL Total Bilirubin (0.2-1.3) mg/dL AST (14-36) U/L ALT (4-34) U/L Alkaline Phosphatase (38-126) U/L Troponin I <0.012 (0.000-0.034) ng/mL NT-Pro-B Natriuret Pep 123 pg/mL Total Protein (6.3-8.2) g/dL Albumin (3.5-5.0) g/dL Lipase (23-300) U/L Disposition Clinical Impression: Chest pain Disposition: HOME SELF-CARE Condition: Good Instructions (If sedation given, give patient instructions): Chest Pain (ED) Additional Instructions: Please follow up with her java oracle developer, please return with any worsening or c hanging symptoms. Is patient prescribed a controlled substance at d/c from ED?: No Referrals: Vijaya Candelaria MD [Primary Care Provider] - 1-2 days Camden Berry MD [STAFF PHYSICIAN] - 1-2 days Time of Disposition: 21:08
[2020-04-19 19:50] LABS: Basophils # (A) 0.2 k/uL (0-0.2); Basophils % (A) 2 %; Eosinophils # (A) 0.4 k/uL (0-0.7); Eosinophils % (A) 4 %; HCT 43.7 % (34.0-46.0); Lymphocytes # (A) 2.9 k/uL (1.0-4.8); Lymphocytes % (A) 29 %; MCH 30.4 pg (25.0-35.0); MCHC 32.1 g/dL (31.0-37.0); MCV 94.7 fL (80.0-100.0); Mean Platelet Volume 7.8; Monocytes # (A) 0.6 k/uL (0-1.0); Monocytes % (A) 6 %; Neutrophils # (A) 5.7 k/uL (1.3-7.7); Neutrophils % (A) 58 %; Platelet Count 312 k/uL (150-450); RBC 4.61 m/uL (3.80-5.40); RDW 12.9 % (11.5-15.5); WBC 9.9 k/uL (3.8-10.6)
[2020-04-19 20:06] LABS: ALT 18 U/L (4-34); AST 32 U/L (14-36); African American GFR (CKD) >90 (>60 ml/min/1.73 sqM); Albumin 4.2 g/dL (3.5-5.0); Alkaline Phosphatase 90 U/L (38-126); Anion Gap 7 mmol/L; Blood Urea Nitrogen 11 mg/dL (7-17); Calcium 9.6 mg/dL (8.4-10.2); Carbon Dioxide 20 mmol/L (22-30); Chloride 110 mmol/L (98-107); Glucose 106 mg/dL (74-99); Magnesium 1.9 mg/dL (1.6-2.3); Non-African American GFR(CKD) 81 (>60 ml/min/1.73 sqM); Potassium 4.7 mmol/L (3.5-5.1); Sodium 137 mmol/L (137-145); Total Bilirubin 0.6 mg/dL (0.2-1.3); Total Protein 7.2 g/dL (6.3-8.2)
--- NOTE | 2020-04-19 20:06 | XR ---
EXAMINATION TYPE: XR chest 2V DATE OF EXAM: 04/19/2020 COMPARISON: 03/02/2019 HISTORY: Chest pain TECHNIQUE: FINDINGS: There is no heart failure nor confluent pneumonic infiltrate. There is linear density at th e left lung base. There are no hilar masses. Bony thorax is intact. IMPRESSION: There is some mild subsegmental atelectasis or pleural reaction left lung base that is in creased compared to old exam. Normal heart.
[2020-04-19 20:28] LABS: INR 0.9 (<1.2); Prothrombin Time 9.4 sec (9.0-12.0)
[2020-04-19 20:32] LABS: Partial Thromboplastin Time 18.4 sec (22.0-30.0)
[2020-04-19 21:42] VITALS: BP 99/66; PULSE 89; RESP 16; TEMP 98.7
== END 2020-04-19 21:40 | disposition home or self-care (01) ==
LOC: EC 18:56
DX: R07.9 Chest pain, unspecified (principal); R68.84 Jaw pain; F41.9 Anxiety disorder, unspecified; F32.9 Major depressive disorder, single episode, unspecified; Z95.5 Presence of coronary angioplasty implant and graft; J44.9 Chronic obstructive pulmonary disease, unspecified; E78.5 Hyperlipidemia, unspecified; I10 Essential (primary) hypertension; I25.2 Old myocardial infarction; F17.200 Nicotine dependence, unspecified, uncomplicated; Z79.51 Long term (current) use of inhaled steroids; Z79.82 Long term (current) use of aspirin; Z79.899 Other long term (current) drug therapy; Z88.1 Allergy status to other antibiotic agents; Z88.5 Allergy status to narcotic agent; Z88.8 Allergy status to other drugs, medicaments and biological substances; Z86.69 Personal history of other diseases of the nervous system and sense organs
CPT/HCPCS: 36415; 71046; 80053; 83690; 83735; 83880; 84484; 85025; 85610; 85730; 93005; 99285

== ENCOUNTER → 2020-07-05 | Outpatient (CLI) | payer OTHER ==
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
== END | disposition home or self-care (01) ==
LOC: RADMRIMAIN 16:15
PROVIDERS: ATTEND Orthopaedic Surgery Orthopaedic Trauma
DX: M47.22 Other spondylosis with radiculopathy, cervical region (principal); R53.1 Weakness
CPT/HCPCS: 72141

== ENCOUNTER 2020-08-15 09:41 | Day surgery (SDC) | payer MEDICARE, OTHER ==
[2020-08-12 09:29] VITALS: BMI 32.4
[~2020-08-15 09:41] MED LIST: LACTATED RINGERS 1,000 ML IV SCH
[2020-08-15 10:02] VITALS: TEMP 97.8
[2020-08-15] MEDS ORDERED: LIDOCAINE 1% (10MG/ML) FOR IV START INTRADERMA ONE (10:02)
[2020-08-15] MEDS ORDERED: LACTATED RINGERS 1,000 ML IV ONE (10:02)
[2020-08-15] MEDS ORDERED: PROPOFOL 10 MG/ML 20 ML VIAL IV ONE (11:04)
[2020-08-15] MEDS ORDERED: LIDOCAINE 1% INJ 10MG/ML (20 ML MDV) ONE (11:04)
--- NOTE | 2020-08-15 11:26 | P.PCN ---
Date of Procedure: 08/15/20 Procedure(s) Performed: Brief history: Patient is a pleasant 69-year-old white female scheduled for an elective upper endoscopy as well as colonoscopy as a part of evaluation of GERD and change in bowel habits for the last few months duration Procedure performed: Esophagogastroduodenoscopy with biopsy Colonoscopy Preoperative diagnosis: GERD Change in bowel habits Anesthesia: MAC Procedure: After informed consent was obtained from the patient was brought into the endoscopy unit and IV sedation was administered by anesthesia under continuous monitoring. Initially upper endoscopy was done. The Olympus GF 160 video endoscope was inserted inserted into the mouth and esophagus intubated without any difficulty and was gradually advanced into the stomach and duodenum and carefully examined. The bulb and second part of the duodenum appeared normal. The scope was then withdrawn into the stomach adequately insufflated with air and upon careful examination the antrum had mild gastritis and biopsies were done from this area. The body, cardia and fundus appeared normal. The scope was then withdrawn into the esophagus. The GE junction was located at 40 cm to the incisors. It appeared regular with no erythema erosions or ulcerations. Rest of the esophagus appeared normal. Patient tolerated the procedure well. At this time the patient continued to remain sedation. Initial digital rectal examination was normal. Olympus CF 160 video colonoscope was then inserted into the rectum and gradually advanced to the cecum without any difficulty. Careful examination was performed as the scope was gradually being withdrawn. The prep was excellent. The cecum, ascending colon, transverse colon, descending colon, sigmoid colon and rectum appeared normal. Scattered sigmoid diverticulosis. Retroflexion was performed in the rectum and no lesions were noted. Patient tolerated the procedure well. Impression: 1. Upper Endoscopy revealed mild antral gastritis but no evidence of esophagitis or peptic ulcer disease. 2. Colonoscopy was essentially within normal limits with no evidence of colitis or colorectal neoplasia Recommendations: Findings of this examination were discussed with the patient as well as family. She was advised to follow with the biopsy results. She can have a repeat screening colonoscopy in 10 years.
[2020-08-15 12:00] VITALS: BP 111/72; PULSE 91; RESP 16
== END 2020-08-15 12:20 | disposition home or self-care (01) ==
LOC: ORWHC2ENDO 09:41
PROVIDERS: ATTEND Internal Medicine Gastroenterology
DX: K29.70 Gastritis, unspecified, without bleeding (principal); K57.30 Diverticulosis of large intestine without perforation or abscess without bleeding; I10 Essential (primary) hypertension; I25.2 Old myocardial infarction; I25.10 Atherosclerotic heart disease of native coronary artery without angina pectoris; J44.9 Chronic obstructive pulmonary disease, unspecified; I73.9 Peripheral vascular disease, unspecified; Z88.0 Allergy status to penicillin; Z88.5 Allergy status to narcotic agent; Z95.5 Presence of coronary angioplasty implant and graft; Z79.82 Long term (current) use of aspirin; Z79.899 Other long term (current) drug therapy; Z98.890 Other specified postprocedural states
CPT/HCPCS: 88305; 45378; 43239; J2001; J2704

== ENCOUNTER → 2020-08-26 | Outpatient (CLI) | payer MEDICARE, OTHER ==
[2020-08-26 15:41] LABS: African American GFR (CKD) 94.9 (60.0-200.0); Anion Gap 7.7 mmol/L (4.00-12.00); Carbon Dioxide 21.3 mmol/L (21.6-31.8); Non-African American GFR(CKD) 81.8 (60.0-200.0); Potassium 4.1 mmol/L (3.5-5.5)
[2020-08-26 15:49] LABS: T4, Free (Free Thyroxine) 1.1 ng/dL (0.80-1.80)
[2020-08-26 18:46] LABS: Hemoglobin A1C 6.3 % (4.0-6.0)
== END | disposition home or self-care (01) ==
LOC: LABWHC1 09:20
PROVIDERS: ATTEND Internal Medicine
DX: E11.9 Type 2 diabetes mellitus without complications (principal); R63.5 Abnormal weight gain; I25.10 Atherosclerotic heart disease of native coronary artery without angina pectoris; J44.9 Chronic obstructive pulmonary disease, unspecified
CPT/HCPCS: 36415; 80051; 82150; 82565; 82947; 83036; 83690; 84439; 84443; 84520

== ENCOUNTER 2020-11-13 06:30 | Inpatient (IN) | payer MEDICARE, OTHER ==
--- NOTE | 2020-11-13 06:34 | ED ---
General Adult HPI - General Stated complaint: Chest Pain Time Seen by Provider: 11/13/20 06:32 - History of Present Illness Initial comments: Patient is a 57-year-old female with a past medical history of COPD, hypertension, dyslipidemia, nicotine dependence, CAD with stenting in 2014 presents to the emergency room for a chief complaint of chest pain x 1 hour. Patient states she woke up about an hour prior to arrival with a pain in her jaw. States she then developed anterior chest pain radiating to the right shoulder. Rating the pain at an 8 out of 10. Patient states she immediately took 2 baby aspirin and nitro. She then called EMS who gave her 2 more aspirin and another nitro. She is unsure if this really helped or not. She denies any associated shortness of breath, nausea, diaphoresis. Denies alleviating or aggravating factors. Patient states she thinks this is related to stress. States that she has been stressed lately trying to get her mom into a vaccine clinic. Patient has no other complaints at this time including shortness of breath, abdominal pain, nausea or vomiting, headache, or visual changes. - Related Data Home Medications Medication Instructions Recorded Confirmed Aspirin EC [Ecotrin Low Dose] 81 mg PO QAM 12/19/14 08/12/20 Atorvastatin [Lipitor] 20 mg PO HS 04/17/18 08/12/20 Salmeterol Xinafoate [Serevent 1 puff INHALATION RT-Q12H 04/17/18 08/12/20 Diskus] Umeclidinium [place] [Incruse 1 puff INHALATION RT-DAILY 04/17/18 08/12/20 Ellipta] ALPRAZolam [Xanax] 0.5 mg PO BID 01/31/20 08/12/20 Acetaminophen Tab [Tylenol Tab] 1,000 mg PO Q8H PRN 01/31/20 08/12/20 Albuterol Inhaler [Ventolin Hfa 2 puff INHALATION RT-QID PRN 01/31/20 08/12/20 Inhaler] Albuterol Nebulized [Ventolin 2.5 mg INHALATION RT-TID PRN 01/31/20 08/12/20 Nebulized] Fluticasone Propionate 110 Mcg 2 puff INHALATION RT-BID 01/31/20 08/12/20 [Flovent 110 Mcg Inhaler (Mhu)] HYDROcodone/APAP 10-325MG [[place] 1 tab PO Q8H PRN 01/31/20 08/12/20 10-325] Previous Rx's Medication Instructions Recorded Metoprolol Tartrate [Lopressor] 25 mg PO BID #60 tab 09/20/14 Nitroglycerin Sl Tabs [Nitrostat] 0.4 mg SUBLINGUAL Q5M PRN #25 tab 09/20/14 Omeprazole [PriLOSEC] 20 mg PO AC-BRKFST #14 cap 01/31/20 Ondansetron Odt [Zofran Odt] 4 mg PO Q8HR PRN #14 tab 01/31/20 Allergies Allergy/AdvReac Type Severity Reaction Status Date / Time amoxicillin Allergy Rash/Hives Verified 11/13/20 06:34 codeine Allergy Rash/Hives Verified 11/13/20 06:34 sumatriptan [From Imitrex] AdvReac Nausea & Verified 11/13/20 06:34 Vomiting Review of Systems ROS Statement: Those systems with pertinent positive or pertinent negative responses have been documented in the HPI. ROS Other: All systems not noted in ROS Statement are negative. Past Medical History Past Medical History: Asthma, COPD, Hyperlipidemia, Hypertension, Myocardial Infarction ([place]), Skin Disorder Additional Past Medical History / Comment(s): diverticulosis, nephrolithiasis- stones in both kidneys with L side worse, migraines, skin sensitive to sun exposure. STOMACH ULCER Last Myocardial Infarction Date:: 09/17/14 History of Any Multi-Drug Resistant Organisms: None Reported Past Surgical History: Cholecystectomy, Heart Catheterization With Stent, Hysterectomy, Orthopedic Surgery Additional Past Surgical History / Comment(s): Lithotripsy, R breast 4 tumors removed all benign, Tumor removed left ear, D & C x 4, colonoscopy, egd, kidney stent, lung RLL mass removed , Right arm surgery x3 Past Anesthesia/Blood Transfusion Reactions: Postoperative Nausea & Vomiting (PONV) Additional Past Anesthesia/Blood Transfusion Reaction / Comment(s): headache for 4 days Date of Last Stent Placement:: Smoking Status: Current every day smoker - Past Family History Father Family Medical History: Cancer, Myocardial Infarction ([place]) Additional Family Medical History / Comment(s): Father had throat and lung cance r. He was a smoker. Mother Family Medical History: Coronary Artery Disease (CAD), Hypertension Additional Family Medical History / Comment(s): Mother has a hiatal hernia that affects her breathing. She also has heart problems General Exam General appearance: alert, in no apparent distress Head exam: Present: atraumatic, normocephalic, normal inspection Eye exam: Present: normal appearance, PERRL, EOMI. Absent: scleral icterus, conjunctival injection, periorbital swelling ENT exam: Present: normal exam, mucous membranes moist Neck exam: Present: normal inspection, full ROM. Absent: tenderness, meningismus, lymphadenopathy Respiratory exam: Present: normal lung sounds bilaterally. Absent: respiratory distress, wheezes, rales, rhonchi, stridor Cardiovascular Exam: Present: regular rate, normal rhythm, normal heart sounds. Absent: systolic murmur, diastolic murmur, rubs, gallop, clicks GI/Abdominal exam: Present: soft, normal bowel sounds. Absent: distended, tenderness, guarding, rebound, rigid Course Vital Signs 11/13/20 11/13/20 11/13/20 06:31 06:48 07:17 Temperature 97.9 F Pulse Rate 104 H 90 103 H Respiratory 16 18 Rate Blood Pressure 129/92 131/82 O2 Sat by Pulse 95 96 97 Oximetry EKG Findings - EKG Comments: EKG Findings:: 0635: Normal sinus rhythm, ventricular rate 93, NE interval 156, QTc 479. 0804: NRS, vent rate 83, Pr 154, ATc 467 Medical Decision Making - Medical Decision Making Vitals are stable. HPI and physical exam as documented. EKG does show T-wave inversions in the precordial leads which is a change from her EKG in April 2020. CBC and CMP are unremarkable. Troponin is negative. Chest x-ray shows no evidence for acute pulmonary disease. Given patient's symptoms as well as si gnificant cardiac history she will be admitted for further monitoring. - Lab Data Result diagrams: 11/13/20 06:51 11/13/20 06:51 Lab Results 11/13/20 11/13/20 11/13/20 Range/Units 06:51 06:51 06:51 WBC 8.6 (3.8-10.6) k/uL RBC 4.70 (3.80-5.40) m/uL Hgb 14.9 (11.4-16.0) gm/dL Hct 43.3 (34.0-46.0) % MCV 92.1 (80.0-100.0) fL MCH 31.7 (25.0-35.0) pg MCHC 34.4 (31.0-37.0) g/dL RDW 12.3 (11.5-15.5) % Plt Count 315 (150-450) k/uL MPV 7.3 Neutrophils % 54 % Lymphocytes % 31 % Monocytes % 6 % Eosinophils % 5 % Basophils % 2 % Neutrophils # 4.7 (1.3-7.7) k/uL Lymphocytes # 2.7 (1.0-4.8) k/uL Monocytes # 0.6 (0-1.0) k/uL Eosinophils # 0.4 (0-0.7) k/uL Basophils # 0.2 (0-0.2) k/uL PT 9.8 (9.0-12.0) sec INR 0.9 (<1.2) APTT 21.0 L (22.0-30.0) sec Sodium 139 (137-145) mmol/L Potassium 4.1 (3.5-5.1) mmol/L Chloride 110 H (98-107) mmol/L Carbon Dioxide 20 L (22-30) mmol/L Anion Gap 9 mmol/L BUN 7 (7-17) mg/dL Creatinine 0.81 (0.52-1.04) mg/dL Est GFR (CKD-EPI)AfAm >90 (>60 ml/min/1.73 sqM) Est GFR (CKD-EPI)NonAf 81 (>60 ml/min/1.73 sqM) Glucose 124 H (74-99) mg/dL Calcium 9.5 (8.4-10.2) mg/dL Magnesium 2.0 (1.6-2.3) mg/dL Total Bilirubin 0.5 (0.2-1.3) mg/dL AST 47 H (14-36) U/L ALT 27 (4-34) U/L Alkaline Phosphatase 103 (38-126) U/L Troponin I (0.000-0.034) ng/mL NT-Pro-B Natriuret Pep pg/mL Total Protein 6.9 (6.3-8.2) g/dL Albumin 4.1 (3.5-5.0) g/dL Lipase 308 H (23-300) U/L Coronavirus (PCR) (Not Detectd) 11/13/20 11/13/20 11/13/20 Range/Units 06:51 06:51 06:57 WBC (3.8-10.6) k/uL RBC (3.80-5.40) m/uL Hgb (11.4-16.0) gm/dL Hct (34.0-46.0) % MCV (80.0-100.0) fL MCH (25.0-35.0) pg MCHC (31.0-37.0) g/dL RDW (11.5-15.5) % Plt Count (150-450) k/uL MPV Neutrophils % % Lymphocytes % % Monocytes % % Eosinophils % % Basophils % % Neutrophils # (1.3-7.7) k/uL Lymphocytes # (1.0-4.8) k/uL Monocytes # (0-1.0) k/uL Eosinophils # (0-0.7) k/uL Basophils # (0-0.2) k/uL PT (9.0-12.0) sec INR (<1.2) APTT (22.0-30.0) sec Sodium (137-145) mmol/L Potassium (3.5-5.1) mmol/L Chloride (98-107) mmol/L Carbon Dioxide (22-30) mmol/L Anion Gap mmol/L BUN (7-17) mg/dL Creatinine (0.52-1.04) mg/dL Est GFR (CKD-EPI)AfAm (>60 ml/min/1.73 sqM) Est GFR (CKD-EPI)NonAf (>60 ml/min/1.73 sqM) Glucose (74-99) mg/dL Calcium (8.4-10.2) mg/dL Magnesium (1.6-2.3) mg/dL Total Bilirubin (0.2-1.3) mg/dL AST (14-36) U/L ALT (4-34) U/L Alkaline Phosphatase (38-126) U/L Troponin I <0.012 (0.000-0.034) ng/mL NT-Pro-B Natriuret Pep 121 pg/mL Total Protein (6.3-8.2) g/dL Albumin (3.5-5.0) g/dL Lipase (23-300) U/L Coronavirus (PCR) Not Detected (Not Detectd) Disposition Clinical Impression: Chest pain Disposition: ADMITTED IP TO THIS HOSP Condition: Serious Is patient prescribed a controlled substance at d/c from ED?: No Referrals: Vijaya Candelaria MD [Primary Care Provider] - 1-2 days Time of Disposition: 08:17
[2020-11-13] MEDS ORDERED: MORPHINE SULFATE 2 MG/ML SYRINGE IVP STA (06:48)
[2020-11-13 07:05] LABS: Basophils # (A) 0.2 k/uL (0-0.2); Basophils % (A) 2 %; Eosinophils # (A) 0.4 k/uL (0-0.7); Eosinophils % (A) 5 %; HCT 43.3 % (34.0-46.0); HGB 14.9 gm/dL (11.4-16.0); Lymphocytes # (A) 2.7 k/uL (1.0-4.8); Lymphocytes % (A) 31 %; MCH 31.7 pg (25.0-35.0); MCHC 34.4 g/dL (31.0-37.0); MCV 92.1 fL (80.0-100.0); Mean Platelet Volume 7.3; Monocytes # (A) 0.6 k/uL (0-1.0); Monocytes % (A) 6 %; Neutrophils # (A) 4.7 k/uL (1.3-7.7); Neutrophils % (A) 54 %; Platelet Count 315 k/uL (150-450); RDW 12.3 % (11.5-15.5); WBC 8.6 k/uL (3.8-10.6)
--- NOTE | 2020-11-13 07:17 | XR ---
Are intact. Pain EXAMINATION TYPE: XR chest 2V DATE OF EXAM: 11/13/2020 COMPARISON: 04/19/2020 HISTORY: Shortness of breath TECHNIQUE: Frontal and lateral views of the chest are obtained. FINDINGS: Scattered senescent parenchymal changes noted. Hyperinflation compatible with COPD. No evidence for infiltrate. No evidence for atelectasis. Heart size is stable. Mediastinal structures are stable and grossly unremarkable. No evidence for hilar prominence. Degenerative changes dorsal spine. IMPRESSION: 1. No evidence for acute pulmonary disease.
[2020-11-13 07:20] LABS: INR 0.9 (<1.2); Prothrombin Time 9.8 sec (9.0-12.0)
[2020-11-13 07:28] LABS: ALT 27 U/L (4-34); AST 47 U/L (14-36); African American GFR (CKD) >90 (>60 ml/min/1.73 sqM); Albumin 4.1 g/dL (3.5-5.0); Alkaline Phosphatase 103 U/L (38-126); Anion Gap 9 mmol/L; Blood Urea Nitrogen 7 mg/dL (7-17); Calcium 9.5 mg/dL (8.4-10.2); Carbon Dioxide 20 mmol/L (22-30); Chloride 110 mmol/L (98-107); Glucose 124 mg/dL (74-99); Lipase 308 U/L (23-300); Non-African American GFR(CKD) 81 (>60 ml/min/1.73 sqM); Potassium 4.1 mmol/L (3.5-5.1); Sodium 139 mmol/L (137-145); Total Bilirubin 0.5 mg/dL (0.2-1.3); Total Protein 6.9 g/dL (6.3-8.2)
[2020-11-13] MEDS ORDERED: MORPHINE SULFATE 4 MG/ML SYRINGE IVP STA (08:08)
[2020-11-13] MEDS ORDERED: NITROGLYCERIN SL TABS 0.4 MG TAB SUBLINGUAL PRN ×4 (08:14→17:49)
[2020-11-13] MEDS ORDERED: ALBUTEROL NEBULIZED 2.5 MG/3 ML INHALATION PRN ×2 (12:32)
--- NOTE | 2020-11-13 13:14 | P.HPIM ---
History of Present Illness 57-year-old the female with known history of COPD coronary artery disease given with complaints of chest pressure-like sensation and started the today morning to lasted for about an hour radiating to the jaw as well as the back of the shoulder blades 8/10 in severity resolved at this time patient took baby aspirin nitro which are without any significant help patient denied any so his shortness of breath nausea diaphoresis patient chest pain is not associated with food nonpleuritic in nature. Patient had an EKG which showed inverted T waves in the anterolateral leads which were not present in the previous EKGs. Review of Systems REVIEW OF SYSTEMS: CONSTITUTIONAL: No fever, no malaise, no fatigue. HEENT: No recent visual problems or hearing problems. Denied any sore throat. CARDIOVASCULAR: No c orthopnea, PND, no palpitations, no syncope. PULMONARY: No shortness of breath, no cough, no hemoptysis. GASTROINTESTINAL: No diarrhea, no nausea, no vomiting, no abdominal pain. NEUROLOGICAL: No headaches, no weakness, no numbness. HEMATOLOGICAL: Denies any bleeding or petechiae. GENITOURINARY: Denies any burning micturition, frequency, or urgency. MUSCULOSKELETAL/RHEUMATOLOGICAL: Denies any joint pain, swelling, or any muscle pain. ENDOCRINE: Denies any polyuria or polydipsia. The rest of the 14-point review of systems is negative. Past Medical History Past Medical History: Asthma, COPD, Hyperlipidemia, Hypertension, Myocardial Infarction ([place]), Skin Disorder Additional Past Medical History / Comment(s): diverticulosis, nephrolithiasis- stones in both kidneys with L side worse, migraines, skin sensitive to sun exposure. STOMACH ULCER Last Myocardial Infarction Date:: 09/17/14 History of Any Multi-Drug Resistant Organisms: None Reported Past Surgical History: Cholecystectomy, Heart Catheterization With Stent, Hysterectomy, Orthopedic Surgery Additional Past Surgical History / Comment(s): Lithotripsy, R breast 4 tumors removed all benign, Tumor removed left ear, D & C x 4, colonoscopy, egd, kidney stent, lung RLL mass removed , Right arm surgery x3 Past Anesthesia/Blood Transfusion Reactions: Postoperative Nausea & Vomiting (PONV) Additional Past Anesthesia/Blood Transfusion Reaction / Comment(s): headache for 4 days Date of Last Stent Placement:: Smoking Status: Current every day smoker - Past Family History Father Family Medical History: Cancer, Myocardial Infarction ([place]) Additional Family Medical History / Comment(s): Father had throat and lung cancer. He was a smoker. Mother Family Medical History: Coronary Artery Disease (CAD), Hypertension Additional Family Medical History / Comment(s): Mother has a hiatal hernia that affects her breathing. She also has heart problems Medications and Allergies Home Medications Medication Instructions Recorded Confirmed Type Metoprolol Tartrate [Lopressor] 25 mg PO BID #60 tab 09/20/14 11/13/20 Rx Nitroglycerin Sl Tabs [Nitrostat] 0.4 mg SUBLINGUAL Q5M PRN #25 tab 09/20/14 11/13/20 Rx Aspirin EC [Ecotrin Low Dose] 81 mg PO QAM 12/19/14 11/13/20 History Atorvastatin [Lipitor] 20 mg PO HS 04/17/18 11/13/20 History Salmeterol Xinafoate [Serevent 1 puff INHALATION RT-Q12H 04/17/18 11/13/20 History Diskus] Umeclidinium [place] [Incruse 1 puff INHALATION RT-DAILY 04/17/18 11/13/20 History Ellipta] ALPRAZolam [Xanax] 0.5 mg PO BID 01/31/20 11/13/20 History Acetaminophen Tab [Tylenol Tab] 1,000 mg PO Q8H PRN 01/31/20 11/13/20 History Albuterol Inhaler [Ventolin Hfa 2 puff INHALATION RT-QID PRN 01/31/20 11/13/20 History Inhaler] Albuterol Nebulized [Ventolin 2.5 mg INHALATION RT-TID PRN 01/31/20 11/13/20 History Nebulized] Omeprazole [PriLOSEC] 20 mg PO AC-BRKFST #14 cap 01/31/20 11/13/20 Rx DULoxetine HCL [Cymbalta] 60 mg PO DAILY 11/13/20 11/13/20 History Fluticasone Propionate [Flovent 2 puff INHALATION RT-BID 11/13/20 11/13/20 History Hfa 220 mcg] metFORMIN HCL [Glucophage] 500 mg PO DAILY 11/13/20 11/13/20 History Allergies Allergy/AdvReac Type Severity Reaction Status Date / Time amoxicillin Allergy Rash/Hives Verified 11/13/20 08:58 codeine Allergy Rash/Hives Verified 11/13/20 08:58 sumatriptan [From Imitrex] AdvReac Nausea & Verified 11/13/20 08:58 Vomiting Physical Exam Vitals: Vital Signs Temp Pulse Resp BP Pulse Ox 11/13/20 12:15 94 18 131/88 98 11/13/20 09:44 89 18 125/78 96 11/13/20 07:17 103 H 18 131/82 97 11/13/20 06:48 90 96 11/13/20 06:31 97.9 F 104 H 16 129/92 95 Intake and Output 11/12/20 11/13/20 11/13/20 22:59 06:59 14:59 Other: Weight 71.668 kg PHYSICAL EXAMINATION: GENERAL: The patient is alert and oriented x3, not in any acute distress. Well developed, well nourished. HEENT: Pupils are round and equally reacting to light. EOMI. No scleral icterus. No conjunctival pallor. Normocephalic, atraumatic. No pharyngeal erythema. No thyromegaly. CARDIOVASCULAR: S1 and S2 present. No murmurs, rubs, or gallops. PULMONARY: Chest is clear to auscultation, no wheezing or crackles. ABDOMEN: Soft, nontender, nondistended, normoactive bowel sounds. No palpable organomegaly. MUSCULOSKELETAL: No joint swelling or deformity. EXTREMITIES: No cyanosis, clubbing, or pedal edema. NEUROLOGICAL: Gross neurological examination did not reveal any focal deficits. SKIN: No rashes. Results CBC & Chem 7: 11/13/20 06:51 11/13/20 06:51 Labs: Abnormal Lab Results - Last 24 Hours (Table) 11/13/20 11/13/20 Range/Units 06:51 06:51 APTT 21.0 L (22.0-30.0) sec Chloride 110 H (98-107) mmol/L Carbon Dioxide 20 L (22-30) mmol/L Glucose 124 H (74-99) mg/dL AST 47 H (14-36) U/L Lipase 308 H (23-300) U/L Assessment and Plan Plan: Chest pain: Rule out acute medicine syndromes patient probably will need cardiac catheterization cardiology evaluated the patient patient actually wanted to go home but the cardiology recommended the continued hospitalization and cardiac catheterization tomorrow. -COPD without any acute exacerbation, patient can use to smoke basic nicotine cessation counseling was provided -Hypertension -Hyperlipidemia -Gastroesophageal reflux disease -Depression.
[2020-11-13] MEDS: NICOTINE 14MG/24HR PATCH TRANSDERM SCH (13:24)
[2020-11-13] MEDS: PANTOPRAZOLE 40 MG TABLET PO SCH ×2 (13:25→13:26)
[2020-11-13] MEDS: DULoxetine HCL 60 MG CAPSULE.DR PO SCH (13:25)
[2020-11-13] MEDS ORDERED: METOPROLOL TARTRATE 25 MG TAB PO SCH (13:30)
[2020-11-13] MEDS ORDERED: HEPARIN SODIUM 1,000 UN/ML (10ML VL) IV PRN (13:43)
[2020-11-13] MEDS ORDERED: HEPARIN SODIUM 1,000 UN/ML (10ML VL) IV ONE (13:43)
[2020-11-13] MEDS ORDERED: HEPARIN SOD,PORK IN 0.45% NACL 25,000 UNIT in 0.45% NACL 1 250ML.BAG IV SCH (13:45)
[2020-11-13] MEDS ORDERED: ATORVASTATIN 80 MG TAB PO STA (14:31)
[2020-11-13] MEDS ORDERED: ALPRAZolam 0.5 MG TAB PO PRN (14:31)
[2020-11-13] MEDS ORDERED: ASPIRIN 325 MG TAB PO STA (14:31)
[2020-11-13] MEDS ORDERED: SODIUM CHLORIDE 0.9% 1,000 ML in EMPTY BAG 1 BAG IV ONE (14:31)
[2020-11-13] MEDS ORDERED: ALPRAZolam 0.25 MG TAB PO PRN (14:31)
--- NOTE | 2020-11-13 15:19 | P.CRDCN ---
History of Present Illness Consult date: 11/13/20 History of present illness: HISTORY OF PRESENT ILLNESS: This is a 60-year-old female with a past medical history significant for coronary artery disease with previous PCI to RCA in 2015, COPD, asthma, hyperlipidemia, hypertension, and nicotine dependence. Patient follows in the office with Dr. Berry. We have been asked to see the patient in consultation for chest pain. Patient examined at the bedside in the emergency room. Patient states she woke up this morning with jaw pain which progressed into discomfort in her chest. She denied radiation of the pain. She denied dizziness or lightheadedness. Denied nausea or vomiting. She denied shortness of breath. She states that she took aspirin and nitro at home which do not help her pain so she came to the emergency room. The patient states her symptoms are similar to when she had her stent placed in 2014. She states at that time she had jaw pain and chest pain that radiated to her back. She states the only thing that is different this time is that the pain did not go into her back. At the time of examination, the patient denies any chest pain or pressure and has requesting to be discharged home. EKG reveals sinus mechanism with T-wave inversions in anterolateral leads, which are similar in appearance to previous EKG obtained in the office. Chest xray negative for acute pulmonary disease Laboratory data: WBC 8.6. Hemoglobin 14.9. Platelet count 315. Sodium 139. Potassium 4.1. BUN 7. Creatinine 0.81. Magnesium 2.0. BNP 121. Troponin 0.012. 1.900. Current home cardiac medications include metoprolol tartrate 25 mg twice a day, Lipitor 20 mg daily, aspirin 81 mg daily Most recent echocardiogram obtained in 2018 revealed ejection fraction 50-55% REVIEW OF SYSTEMS: At the time of my exam: CONSTITUTIONAL: Denies fever or chills. HEENT: Denies blurred vision, vision changes, or eye pain. Denies hemoptysis CARDIOVASCULAR: Denies chest pain. Denies orthopnea. Denies PND. Denies palpitations RESPIRATORY: Denies shortness of breath. GASTROINTESTINAL: Denies abdominal pain. Denies nausea or vomiting. HEMATOLOGIC: Denies bleeding disorders. GENITOURINARY: Denies any blood in urine. SKIN: Denies pruitis. Denies rash. PHYSICAL EXAM: VITAL SIGNS: Reviewed. GENERAL: Well-developed in no acute distress. HEENT: Head is normocephalic. Pupils are equal, round. Sclerae anicteric. Mucous membranes of the mouth are moist. Neck supple. No JVD or thyromegaly LUNGS: Respirations even and unlabored. Lungs diminished bilaterally HEART: Regular rate and rhythm. S1 and S2 heard. ABDOMEN: Soft. Nondistended. Nontender. EXTREMITIES: Normal range of motion. No clubbing or cyanosis. Peripheral pulses intact. No lower extremity edema NEUROLOGIC: Awake and alert. Oriented x 3. ASSESSMENT: Non-STEMI Coronary artery disease with previous PCI to RCA, 2015 Hypertension Hyperlipidemia COPD Chronic nicotine dependence Anxiety PLAN: Obtain 2D echo to assess cardiac structure and function Continue IV heparin Resume home cardiac medications Increase metoprolol to 50mg BID Continue telemetry monitoring Smoking cessation encouraged Patient to undergo cardiac catheterization this afternoon with Dr. Styles Nurse practitioner note has been reviewed by physician. Signing provider agrees with the documented findings, assessment, and plan of care. Past Medical History Past Medical History: Asthma, COPD, Hyperlipidemia, Hypertension, Myocardial Infarction (CT), Skin Disorder Additional Past Medical History / Comment(s): diverticulosis, nephrolithiasis- stones in both kidneys with L side worse, migraines, skin sensitive to sun exposure. STOMACH ULCER Last Myocardial Infarction Date:: 09/17/14 History of Any Multi-Drug Resistant Organisms: None Reported Past Surgical History: Cholecystectomy, Heart Catheterization With Stent, Hysterectomy, Orthopedic Surgery Additional Past Surgical History / Comment(s): Lithotripsy, R breast 4 tumors removed all benign, Tumor removed left ear, D & C x 4, colonoscopy, egd, kidney stent, lung RLL mass removed , Right arm surgery x3 Past Anesthesia/Blood Transfusion Reactions: Postoperative Nausea & Vomiting ( PONV) Additional Past Anesthesia/Blood Transfusion Reaction / Comment(s): headache for 4 days Date of Last Stent Placement:: Smoking Status: Current every day smoker - Past Family History Father Family Medical History: Cancer, Myocardial Infarction (CT) Additional Family Medical History / Comment(s): Father had throat and lung cancer. He was a smoker. Mother Family Medical History: Coronary Artery Disease (CAD), Hypertension Additional Family Medical History / Comment(s): Mother has a hiatal hernia that affects her breathing. She also has heart problems Medications and Allergies Home Medications Medication Instructions Recorded Confirmed Type Metoprolol Tartrate [Lopressor] 25 mg PO BID #60 tab 09/20/14 11/13/20 Rx Nitroglycerin Sl Tabs [Nitrostat] 0.4 mg SUBLINGUAL Q5M PRN #25 tab 09/20/14 11/13/20 Rx Aspirin EC [Ecotrin Low Dose] 81 mg PO QAM 12/19/14 11/13/20 History Atorvastatin [Lipitor] 20 mg PO HS 04/17/18 11/13/20 History Salmeterol Xinafoate [Serevent 1 puff INHALATION RT-Q12H 04/17/18 11/13/20 H istory Diskus] Umeclidinium [place] [Incruse 1 puff INHALATION RT-DAILY 04/17/18 11/13/20 His tory Ellipta] ALPRAZolam [Xanax] 0.5 mg PO BID 01/31/20 11/13/20 History Acetaminophen Tab [Tylenol Tab] 1,000 mg PO Q8H PRN 01/31/20 11/13/20 History Albuterol Inhaler [Ventolin Hfa 2 puff INHALATION RT-QID PRN 01/31/20 11/13/20 History Inhaler] Albuterol Nebulized [Ventolin 2.5 mg INHALATION RT-TID PRN 01/31/20 11/13/20 History Nebulized] Omeprazole [PriLOSEC] 20 mg PO AC-BRKFST #14 cap 01/31/20 11/13/20 Rx DULoxetine HCL [Cymbalta] 60 mg PO DAILY 11/13/20 11/13/20 History Fluticasone Propionate [Flovent 2 puff INHALATION RT-BID 11/13/20 11/13/20 History Hfa 220 mcg] metFORMIN HCL [Glucophage] 500 mg PO DAILY 11/13/20 11/13/20 History Allergies Allergy/AdvReac Type Severity Reaction Status Date / Time amoxicillin Allergy Rash/Hives Verified 11/13/20 08:58 codeine Allergy Rash/Hives Verified 11/13/20 08:58 sumatriptan [From Imitrex] AdvReac Nausea & Verified 11/13/20 08:58 Vomiting Physical Exam Vitals: Vital Signs Temp Pulse Resp BP Pulse Ox 11/13/20 12:15 94 18 131/88 98 11/13/20 09:44 89 18 125/78 96 11/13/20 07:17 103 H 18 131/82 97 11/13/20 06:48 90 96 11/13/20 06:31 97.9 F 104 H 16 129/92 95 Intake and Output 11/13/20 11/13/20 11/13/20 06:59 14:59 22:59 Other: Weight 71.668 kg Results 11/13/20 06:51 11/13/20 06:51 Cardiac Enzymes 11/13/20 11/13/20 11/13/20 Range/Units 06:51 06:51 12:09 AST 47 H (14-36) U/L Troponin I <0.012 1.900 H* (0.000-0.034) ng/mL Coagulation 11/13/20 Range/Units 06:51 PT 9.8 (9.0-12.0) sec APTT 21.0 L (22.0-30.0) sec CBC 11/13/20 Range/Units 06:51 WBC 8.6 (3.8-10.6) k/uL RBC 4.70 (3.80-5.40) m/uL Hgb 14.9 (11.4-16.0) gm/dL Hct 43.3 (34.0-46.0) % Plt Count 315 (150-450) k/uL Comprehensive Metabolic Panel 11/13/20 Range/Units 06:51 Sodium 139 (137-145) mmol/L Potassium 4.1 (3.5-5.1) mmol/L Chloride 110 H (98-107) mmol/L Carbon Dioxide 20 L (22-30) mmol/L BUN 7 (7-17) mg/dL Creatinine 0.81 (0.52-1.04) mg/dL Glucose 124 H (74-99) mg/dL Calcium 9.5 (8.4-10.2) mg/dL AST 47 H (14-36) U/L ALT 27 (4-34) U/L Alkaline Phosphatase 103 (38-126) U/L Total Protein 6.9 (6.3-8.2) g/dL Albumin 4.1 (3.5-5.0) g/dL Current Medications Generic Name Dose Route Start Last Admin Trade Name Freq PRN Reason Stop Dose Admin Acetaminophen 1,000 mg 11/13/20 12:32 Acetaminophen Tab 500 Mg Tab PO Q8H PRN Pain Albuterol Sulfate 2.5 mg 11/13/20 12:32 Albuterol Nebulized 2.5 Mg/3 Ml INHALATION RT-QID PRN Shortness Of Breath Alprazolam 0.5 mg 11/13/20 21:00 Alprazolam 0.5 Mg Tab PO BID CM Alprazolam 0.25 mg 11/13/20 14:31 Alprazolam 0.25 Mg Tab PO Q6HR PRN Mild Anxiety Alprazolam 0.5 mg 11/13/20 14:31 Alprazolam 0.5 Mg Tab PO Q6HR PRN Moderate Anxiety Aspirin 81 mg 11/14/20 09:00 Aspirin 81 Mg PO DAILY CM Atorvastatin Calcium 20 mg 11/13/20 21:00 Atorvastatin 20 Mg Tab PO HS CM Duloxetine HCl 60 mg 11/13/20 12:45 11/13/20 13:25 Duloxetine Hcl 60 Mg Capsule.Dr PO Not Given DAILY [facility] Fluticasone Propionate 2 puff 11/13/20 20:00 Fluticasone 110 Mcg Inhaler INHALATION RT-BID CM Formoterol Fumarate 20 mcg 11/13/20 20:00 Formoterol Fumarate 20 Mcg/2 Ml Nebu INHALATION RT-Q12H CM Heparin Sodium (Porcine) 0 unit 11/13/20 13:43 Heparin Sodium 1,000 Un/Ml (10ml Vl) IV PER PROTOCOL PRN Low PTT Protocol Heparin Sodium/Sodium Chloride 250 mls @ 8.6 mls/hr 11/13/20 13:45 11/13/20 14:03 25,000 unit/ Sodium Chloride IV 12 units/kg/hr .Q24H CM 8.6 mls/hr Administration Protocol 12 UNITS/KG/HR Sodium Chloride 1,000 ml/ IV 1,000 mls @ 71.668 mls/hr 11/13/20 14:31 Solution IV 11/14/20 04:28 .[id number] ONE 1 ML/KG/HR Heparin Sodium (Porcine) 10, 1,001 mls @ 999 mls/hr 11/14/20 07:00 000 unit/ Sodium Chloride IRRIGATION 11/14/20 23:00 ONCE PRN INTRA-OP Heparin Sodium (Porcine) 2,500 250.5 mls @ 250 mls/hr 11/14/20 07:00 unit/ Sodium Chloride IRRIGATION 11/14/20 23:00 ONCE PRN INTRA-OP Ipratropium Camino 0.5 mg 11/14/20 08:00 Ipratropium 0.5 Mg/2.5 Ml Nebu INHALATION RT-QID [facility] Metoprolol Tartrate 25 mg 11/13/20 13:30 11/13/20 13:26 Metoprolol Tartrate 25 Mg Tab PO 25 mg BID [facility] Administration Nicotine 1 patch 11/13/20 12:45 11/13/20 13:24 Nicotine 14mg/24hr Patch TRANSDERM 1 patch DAILY [facility] Administration Nitroglycerin 0.4 mg 11/13/20 11:09 Nitroglycerin Sl Tabs 0.4 Mg Tab SUBLINGUAL Q5M PRN Chest Pain Nitroglycerin 0.4 mg 11/13/20 14:31 Nitroglycerin Sl Tabs 0.4 Mg Tab SUBLINGUAL Q5M PRN Chest Pain Pantoprazole Sodium 40 mg 11/13/20 12:45 11/13/20 13:26 Pantoprazole 40 Mg Tablet PO 40 mg AC-BRKFST [facility] Administration Intake and Output 11/13/20 11/13/20 11/13/20 06:59 14:59 22:59 Other: Weight 71.668 kg 11/13/20 06:51 11/13/20 06:51
[2020-11-13] MEDS ORDERED: IV FLUID CONTINUATION 1,000 ML IV ONE (16:30)
[2020-11-13] MEDS ORDERED: LIDOCAINE 1% INJ 10MG/ML (20 ML MDV) SQ ONE (16:33)
[2020-11-13] MEDS: fentaNYL (PF) 50 MCG/ML 2 ML AMP IV ONE ×3 (16:33→17:58)
[2020-11-13] MEDS ORDERED: MIDAZOLAM 2 MG/2 ML VIAL IV ONE ×2 (16:33→17:29)
[2020-11-13] MEDS ORDERED: BIVALIRUDIN BOLUS 250 MG/50 ML IV ONE (16:58)
[2020-11-13] MEDS ORDERED: BIVALIRUDIN 250 MG in SODIUM CHLORIDE 0.9% 50 ML IV ONE (17:00)
[2020-11-13] MEDS: NITROGLYCERIN 1000MCG/10ML SYRINGE INTRACORON ONE ×2 (17:00→17:21)
[2020-11-13] MEDS ORDERED: PRASUGREL 10 MG TAB PO ONE (17:03)
[2020-11-13] MEDS ORDERED: IOPAMIDOL-370 125ML BTL INJ ONE (17:21)
[2020-11-13] MEDS ORDERED: IOPAMIDOL-370 50ML BTL INJ ONE (17:41)
[2020-11-13] MEDS ORDERED: ZOLPIDEM 5 MG TAB PO PRN (17:49)
[2020-11-13] MEDS ORDERED: RX INFO: IV CONTRAST WAS GIVEN 1 EACH MISC MISCELLANE PRN (17:49)
[2020-11-13] MEDS ORDERED: MAG HYDROX/AL HYDROX/SIMETH 30 ML CUP PO PRN (17:49)
[2020-11-13] MEDS ORDERED: ATROPINE SULFATE 0.1 MG/ML 10ML SYRINGE IV PRN (17:49)
[2020-11-13] MEDS ORDERED: SODIUM CHLORIDE 0.9% 1,000 ML IV SCH (18:00)
[2020-11-13] MEDS ORDERED: HYDROmorphone 1 MG/ML 1 ML SYRINGE ONE (18:26)
[2020-11-13] MEDS ORDERED: ONDANSETRON 4 MG/2 ML VIAL ONE (18:30)
[2020-11-13] MEDS ORDERED: ATORVASTATIN 20 MG TAB PO SCH (21:00)
[2020-11-13] MEDS: ALPRAZolam 0.5 MG TAB PO SCH (21:03)
[2020-11-13] MEDS: METOPROLOL TARTRATE 25 MG TAB PO SCH (21:03)
[2020-11-13] MEDS: FORMOTEROL FUMARATE 20 MCG/2 ML NEBU INHALATION SCH (21:31)
[2020-11-13] MEDS: FLUTICASONE 110 MCG INHALER INHALATION SCH (21:32)
--- NOTE | 2020-11-13 21:58 | CC ---
CARDIAC CATHETERIZATION REPORT DATE OF SERVICE: 11/13/2020 PERFORMING PHYSICIAN: Nirav Styles M.D. PROCEDURES PERFORMED: 1. Selective right and left coronary angiogram. 2. Left heart catheterization. 3. Successful stenting of the left circumflex coronary artery using a 3.0 x 18 mm Xience drug-eluting stent with an excellent angiographic result. 4. Successful stenting of the proximal and mid right coronary artery using a 3.0 x 18 and a 4.0 x 18 mm Xience drug-eluting stent with an excellent angiographic result. 5. Selective right common femoral artery angiogram. INDICATION: This is a very pleasant 60-year-old female patient who sees Dr. Berry in the office as an outpatient with known history of coronary artery disease and prior stenting of the RCA as well as history of smoking. She presented to the hospital complaining of chest discomfort and ruled in for acute [id number] myocardial infarction. Dr. Berry was unavailable, and the patient was seen by Dr. Gallego, who recommended proceeding with coronary angiogram. APPROACH: Right common femoral artery. COMPLICATIONS: None. LEVEL OF SEDATION: Moderate, with sedation length of 70 minutes. PROCEDURE DESCRIPTION: After obtaining informed consent, the patient was brought to the cardiac mill laborer. The right common femoral artery was cannulated using micropuncture technique. The micropuncture wire passed easily. Then I placed a 6-Divehi sheath. After that I did selective right and left coronary angiogram using JR3.5 and JL3.5 catheters. Left heart catheterization was performed using the JR3.5, which crossed the aortic valve. Then I did pullback across the valve. After that the diagnostic procedure was completed and I did intervene on the RCA and LCX. Please see a separate paragraph for that. SELECTIVE CORONARY ANGIOGRAM: 1. The RCA is a large-caliber vessel. It is a dominant vessel. The RCA in the proximal portion has a thrombotic lesion that appeared to be in the range of 99.9%. The RCA after that is aneurysmal in the proximal to mid portion, but the mid portion is stented and the stent is patent. Distally the RCA is angiographically normal and bifurcates into PDA and PLV branches. Both appeared to be angiographically normal. 2. The left main is angiographically normal. The left main bifurcates into left circumflex and left anterior descending artery. 3. The left circumflex is a large-caliber vessel and it is a nondominant vessel. The proximal left circumflex by the bifurcation of the first obtuse marginal branch has a lesion that appeared to be in the range of 90%. That lesion is involving the ostial of OM1. The left circumflex continued after that as a moderate-caliber vessel in the AV groove. 4. The LAD. The proximal LAD appeared to be angiographically normal. The mid LAD after the bifurcation of the first septal personnel supervisor has a lesion that appeared to be in the range of 60%. It seems to be slightly worse compared to prior angiogram. The LAD after that appeared to have mild disease only and gives rise to the first and second diagonal branches; both appeared to be angiographically normal. HEMODYNAMICS: The LVEDP was 10 to 12 mmHg without significant gradient across the aortic valve. PCI OF THE RCA AND LEFT CIRCUMFLEX: Anticoagulation was initiated using Angiomax. Subsequently I did engage the RCA using a JR3.5 guide. I did wire it using a run- through wire. Balloon angioplasty was performed using a 3.0 x 12 mm balloon before I deployed a 3.0 x 15 mm Xience drug-eluting stent where the stent was positioned under fluoroscopic guidance and deployed under 16 atmospheres for 20 seconds. The following angiogram showed good angiographic results. After fixing the left circumflex, the patient was experiencing chest discomfort, and I did a diagnostic angiogram of the right. That seemed to show some haziness inside the stented segment, which I decided to cover with another stent in the mid LAD. After that I did engage the RCA again using a JR4 guide and wired using a run-through wire. Then I did direct stenting using a 4.0 x 18 mm Xience drug-eluting stent where the stent this time was overlapping between the proximal and mid stents. The second stent was deployed under 16 atmospheres. The following angiogram showed now great angiographic results. For the lesion in the circumflex, I did engage the circumflex using a JL3.5 guide. I did engage the left main using JL3.5 guide. I did wire the circumflex using a run- through wire. After that I did balloon angioplasty using a 3.0 x 12 mm balloon before I deployed the 3.0 x 18 mm Xience as well, and the second stent was deployed under 16 atmospheres for 20 seconds and the following angiogram showed excellent angiographic results. CONCLUSION: 1. Acute [id number] myocardial infarction in this 60-year-old female patient with coronary artery disease and prior stenting of the RCA who continues to smoke. 2. Critical disease involving the proximal to mid right coronary artery with a thrombotic lesion. I did successful stenting of that lesion. 3. Critical disease involving the proximal to mid left circumflex coronary artery. I did successful stenting of the left circumflex as well. 4. Intermediate to severe disease involving the proximal to mid left anterior descending artery that appeared to be slightly worse compared to prior angiogram. 5. Normal LVEDP. POST-PROCEDURE MANAGEMENT: 1. Dual anti-platelet therapy. 2. Aggressive cholesterol control. 3. Smoking cessation. 4. Follow up with the patient. MMODL / IJN: [id number] /
[2020-11-13] MEDS: HYDROmorphone 1 MG/ML 1 ML SYRINGE IVP PRN (22:11)
[2020-11-14] MEDS: HYDROmorphone 1 MG/ML 1 ML SYRINGE IVP PRN ×2 (04:33→20:38)
[2020-11-14] MEDS: INSULIN ASPART (NovoLOG) 100 UNIT/ML VIAL SQ SCH ×4 (06:43→22:00)
[2020-11-14 06:44] LABS: Glucose,Whole Blood 112 mg/dL (75-99)
[2020-11-14 06:55] LABS: Basophils # (A) 0.2 k/uL (0-0.2); Basophils % (A) 2 %; Eosinophils # (A) 0.2 k/uL (0-0.7); Eosinophils % (A) 2 %; HCT 38.9 % (34.0-46.0); HGB 12.8 gm/dL (11.4-16.0); Lymphocytes # (A) 1.6 k/uL (1.0-4.8); Lymphocytes % (A) 16 %; MCH 30.5 pg (25.0-35.0); MCHC 32.8 g/dL (31.0-37.0); Mean Platelet Volume 7.5; Monocytes # (A) 0.6 k/uL (0-1.0); Monocytes % (A) 6 %; Neutrophils # (A) 7.3 k/uL (1.3-7.7); Neutrophils % (A) 73 %; Platelet Count 281 k/uL (150-450); RBC 4.19 m/uL (3.80-5.40); RDW 12.3 % (11.5-15.5)
[2020-11-14] MEDS ORDERED: HEPARIN SODIUM,PORCINE 10,000 UNIT in SODIUM CHLORIDE 0.9% 1,000 ML IRRIGATION PRN (07:00)
[2020-11-14] MEDS ORDERED: HEPARIN SODIUM,PORCINE 2,500 UNIT in SODIUM CHLORIDE 0.9% 250 ML IRRIGATION PRN (07:00)
[2020-11-14 07:13] LABS: Cholesterol 149 mg/dL (<200); HDL Cholesterol 42 mg/dL (40-60); LDL Cholesterol,Calculated 51 mg/dL (0-99); Triglycerides 278 mg/dL (<150)
[2020-11-14 07:17] LABS: Calcium 8.8 mg/dL (8.4-10.2); Potassium 4.7 mmol/L (3.5-5.1)
[2020-11-14] MEDS: FLUTICASONE 110 MCG INHALER INHALATION SCH ×2 (08:30→20:24)
[2020-11-14] MEDS: FORMOTEROL FUMARATE 20 MCG/2 ML NEBU INHALATION SCH ×3 (08:31→20:30)
[2020-11-14] MEDS: IPRATROPIUM 0.5 MG/2.5 ML NEBU INHALATION SCH ×4 (08:31→20:24)
[2020-11-14] MEDS: ALPRAZolam 0.5 MG TAB PO SCH ×2 (08:56→20:37)
[2020-11-14] MEDS: METOPROLOL TARTRATE 25 MG TAB PO SCH ×2 (08:56→20:37)
[2020-11-14] MEDS: NICOTINE 14MG/24HR PATCH TRANSDERM SCH (08:56)
[2020-11-14] MEDS: ASPIRIN 81 MG PO SCH (08:56)
[2020-11-14] MEDS: ACETAMINOPHEN TAB 500 MG TAB PO PRN (08:58)
[2020-11-14] MEDS ORDERED: ASPIRIN 325 MG TAB PO SCH ×2 (09:00)
[2020-11-14] MEDS: DULoxetine HCL 60 MG CAPSULE.DR PO SCH (09:01)
[2020-11-14] MEDS: ONDANSETRON 4 MG/2 ML VIAL IVP PRN ×2 (09:04→20:41)
--- NOTE | 2020-11-14 10:59 | ECHOF ---
Referral Reason:non-stemi, LV function MEASUREMENTS -------- HEIGHT: 152.4 cm WEIGHT: 71.7 kg BP: IVSd: 1.1 cm (0.6 - 1.1) LVIDd: 5.1 cm (3.9 - 5.3) LVPWd: 1.0 cm (0.6 - 1.1) EDV(Teich): 123 ml IVSs: 1.2 cm LVIDs: 4.3 cm LVPWs: 1.5 cm %IVS Thck: 10 % ESV(Teich): 81 ml EF(Teich): 34 % %FS: 16 % SV(Teich): 42 ml LA Diam: 3.5 cm (2.7 - 3.8) RVIDd: 2.4 cm (< 3.3) Ao Diam: 3.2 cm (2.0 - 3.7) EPSS: 1.2 cm MV E David: 0.53 m/s MV DecT: 174 ms MV Dec Yoakum: 3.0 m/s MV A David: 0.60 m/s MV E/A Ratio: 0.88 MV PHT: 51 ms TR Vmax: 1.72 m/s TR maxP.77 mmHg RAP: 5.00 mmHg RVSP: 16.77 mmHg MV EF SLOPE: 49.24 mm/s (70 - 150) MV EXCURSION: 11.80 mm (> 18.000) FINDINGS -------- Sinus rhythm. This was a techncally difficult study with suboptimal views, , Definity utilized for enhancement of i mages. The left ventricular size is normal. Left ventricular wall thickness is normal. Overall left vent ricular systolic function is mild-moderately impaired with, an EF between 40 - 45 %. Posterior hypo kinesis The right ventricle is normal in size. The left atrial size is normal. The right atrial size is normal. Lumason used The aortic valve is trileaflet, and appears structurally normal. No aortic stenosis or regurgitation. Mild mitral regurgitation is present. Mild tricuspid regurgitation present. Right ventricular systolic pressure is normal at < 35 mmHg. There is no pulmonic regurgitation present. Echo free space indicative of a pericardial fat pad. There is a small, generalized pericardial effu leonides present. CONCLUSIONS -------- 1. This was a techncally difficult study with suboptimal views, , Definity utilized for enhancement o f images. 2. The left ventricular size is normal. 3. Left ventricular wall thickness is normal. 4. Overall left ventricular systolic function is mild-moderately impaired with, an EF between 40 - 45 %. 5. Posterior hypokinesis 6. The right ventricle is normal in size. 7. The left atrial size is normal. 8. The right atrial size is normal. 9. Lumason used 10. Mild mitral regurgitation is present. 11. Mild tricuspid regurgitation present. 12. There is no pulmonic regurgitation present. 13. Echo free space indicative of a pericardial fat pad. 14. There is a small, generalized pericardial effusion present. SMOOTH PLATER: Evelyn Grace RDCS
[2020-11-14 11:28] VITALS: BMI 30.8
[2020-11-14 12:00] LABS: Glucose,Whole Blood 132 mg/dL (75-99)
--- NOTE | 2020-11-14 12:00 | P.PN ---
Subjective Progress Note Date: 11/14/20 Principal diagnosis: Acute non-ST elevation myocardial infarction This is a 60-year-old female patient was coronary artery disease and prior stenting of the RCA as well as history of smoking who continues to smoke as well as hypertension and dyslipidemia presented to the emergency department complaining of chest discomfort and she was ruled in for acute non-ST patient myocardial infarction. The patient follows normally was Dr. Berry on regular basis. She underwent yesterday heart catheterization and she was found to have critical 2 vessel CAD involving the RCA as well as LCx. She underwent successful stenting of both with an excellent angiographic results. The patient was seen this morning beach she wants to go home. I advised the patient to stay one more day in the hospital since she was ruled in for acute coronary event. She is willing to stay overnight to tomorrow morning. She is chest pain-free and she is asymptomatic overall. The right groin is soft and nontender and without any bruises. The physical examination overall is unremarkable. She is on dual antiplatelet therapy along with high intensity statin along with anti-ischemic medications. The echo revealed mildly impaired LV function was EF between 40-45%. I would consider adding small dose of lisinopril before discharge view of the acute coronary event as well as cardiomyopathy. Objective - Vital Signs Vital signs: Vital Signs Temp 97.7 F 11/14/20 07:39 Pulse 89 11/14/20 09:09 Resp 16 11/14/20 07:39 BP 109/69 11/14/20 09:09 Pulse Ox 95 11/14/20 07:39 Intake & Output 11/13/20 11/14/20 11/14/20 18:59 06:59 18:59 Intake Total 195 300 222 Balance 195 300 222 Weight 71.668 kg 71.668 kg Intake: IV 195 Intake, IV Titration 300 Amount Sodium Chloride 0.9% 1, 300 000 ml @ 75 mls/hr IV . [id number] [facility] Rx#:[id number] Oral 222 Other: Voiding Method Toilet # Voids 1 1 - Constitutional General appearance: Present: no acute distress - Respiratory Respiratory: bilateral: CTA - Cardiovascular Rhythm: regular Heart sounds: normal: S1, S2 - Labs CBC & Chem 7: 11/14/20 05:49 11/14/20 03:50 Labs: Abnormal Lab Results - Last 24 Hours (Table) 11/13/20 11/13/20 11/14/20 Range/Units 12:09 15:01 03:50 Sodium 135 L (137-145) mmol/L Chloride 109 H (98-107) mmol/L Carbon Dioxide 19 L (22-30) mmol/L Glucose 106 H (74-99) mg/dL POC Glucose (mg/dL) (75-99) mg/dL Troponin I 1.900 H* 3.200 H* (0.000-0.034) ng/mL Triglycerides (<150) mg/dL 11/14/20 11/14/20 Range/Units 05:49 06:42 Sodium (137-145) mmol/L Chloride (98-107) mmol/L Carbon Dioxide (22-30) mmol/L Glucose (74-99) mg/dL POC Glucose (mg/dL) 112 H (75-99) mg/dL Troponin I (0.000-0.034) ng/mL Triglycerides 278 H (<150) mg/dL Assessment and Plan Assessment: Assessment #1 acute non-ST elevation myocardial infarction #2 mild ischemic cardiomyopathy was EF between 40-45% #3 significant history of smoking #4 hypertension #5 dyslipidemia Plan #1 continue dual antiplatelet therapy #2 continue high intensity statin #3 continue beta eda with metoprolol #4 consider adding lisinopril before discharge home tomorrow #5 smoking cessation was discussed with her #6 follow-up with the patient
--- NOTE | 2020-11-14 12:02 | P.DS ---
Providers Date of admission: 11/14/20 08:39 Attending physician: Denzel Barba Consults: 11/13/20 08:14 Consult Physician Routine Consulting Provider: Cardiology Rosaura Consult Reason/Comments: chest pain Do you want consulting provider notified?: Yes 11/13/20 17:49 Consult Physician Routine Consulting Provider: Cardiology Rosaura Consult Reason/Comments: Post Interventional patient Do you want consulting provider notified?: Already Contacted Primary care physician: Teagan Kahn [facility] Course: 57-year-old the female with known history of COPD coronary artery disease given with complaints of chest pressure-like sensation and started the today morning to lasted for about an hour radiating to the jaw as well as the back of the shoulder blades 8/10 in severity resolved at this time patient took baby aspirin nitro which are without any significant help patient denied any so his shortness of breath nausea diaphoresis patient chest pain is not associated with food nonpleuritic in nature. Patient had an EKG which showed inverted T waves in the anterolateral leads which were not present in the previous EKGs. 11/14/2020 Patient's second troponin went up patient had typical symptoms because of which the patient was started on IV heparin was taken to [employer] found to have stenosis of RCA and circumflex in significant disease in LAD patient received 3 stents to RCA and circumflex. Nicotine cessation counseling was provided and patient is clinically doing well wanted to go home will be discharged today. PHYSICAL EXAMINATION: GENERAL: The patient is alert and oriented x3, not in any acute distress. Well developed, well nourished. HEENT: Pupils are round and equally reacting to light. EOMI. No scleral icterus. No conjunctival pallor. Normocephalic, atraumatic. No pharyngeal erythema. No thyromegaly. CARDIOVASCULAR: S1 and S2 present. No murmurs, rubs, or gallops. PULMONARY: Chest is clear to auscultation, no wheezing or crackles. ABDOMEN: Soft, nontender, nondistended, normoactive bowel sounds. No palpable organomegaly. MUSCULOSKELETAL: No joint swelling or deformity. EXTREMITIES: No cyanosis, clubbing, or pedal edema. NEUROLOGICAL: Gross neurological examination did not reveal any focal deficits. SKIN: No rashes. Assessment and Plan Plan: Acute non-ST elevation myocardial infarction: Patient had stents to RCA and circumflex as mentioned above patient will be discharged today clinical doing well. -COPD without any acute exacerbation, -Continued nicotine use -Hypertension -Hyperlipidemia -Gastroesophageal reflux disease -Depression. Patient Condition at Discharge: Serious Plan - Discharge Summary Discharge Rx Participant: No New Discharge Prescriptions: New Nicotine 21Mg/24Hr Patch [Habitrol] 1 each TRANSDERM DAILY #14 patch Prasugrel [Effient] 10 mg PO DAILY #30 tab Atorvastatin [Lipitor] 80 mg PO HS #30 tab Metoprolol Tartrate [Lopressor] 50 mg PO BID #60 tab Continue Aspirin EC [Ecotrin Low Dose] 81 mg PO QAM Umeclidinium Declo [Incruse Ellipta] 1 puff INHALATION RT-DAILY Salmeterol Xinafoate [Serevent Diskus] 1 puff INHALATION RT-Q12H Albuterol Nebulized [Ventolin Nebulized] 2.5 mg INHALATION RT-TID PRN PRN Reason: Shortness Of Breath ALPRAZolam [Xanax] 0.5 mg PO BID Albuterol Inhaler [Ventolin Hfa Inhaler] 2 puff INHALATION RT-QID PRN PRN Reason: Shortness Of Breath Acetaminophen Tab [Tylenol] 1,000 mg PO Q8H PRN PRN Reason: Pain Omeprazole [PriLOSEC] 20 mg PO AC-BRKFST #14 cap metFORMIN HCL [Glucophage] 500 mg PO DAILY DULoxetine HCL [Cymbalta] 60 mg PO DAILY Fluticasone Propionate [Flovent Hfa 220 mcg] 2 puff INHALATION RT-BID Nitroglycerin Sl Tabs [Nitrostat] 0.4 mg SUBLINGUAL Q5M PRN #30 tab PRN Reason: Chest Pain Discontinued Metoprolol Tartrate [Lopressor] 25 mg PO BID #60 tab Atorvastatin [Lipitor] 20 mg PO HS Discharge Medication List Aspirin EC [Ecotrin Low Dose] 81 mg PO QAM 12/19/14 [History] Salmeterol Xinafoate [Serevent Diskus] 1 puff INHALATION RT-Q12H 04/17/18 [History] Umeclidinium Declo [Incruse Ellipta] 1 puff INHALATION RT-DAILY 04/17/18 [History] ALPRAZolam [Xanax] 0.5 mg PO BID 01/31/20 [History] Acetaminophen Tab [Tylenol] 1,000 mg PO Q8H PRN 01/31/20 [History] Albuterol Inhaler [Ventolin Hfa Inhaler] 2 puff INHALATION RT-QID PRN 01/31/20 [History] Albuterol Nebulized [Ventolin Nebulized] 2.5 mg INHALATION RT-TID PRN 01/31/20 [History] Omeprazole [PriLOSEC] 20 mg PO AC-BRKFST #14 cap 01/31/20 [Rx] DULoxetine HCL [Cymbalta] 60 mg PO DAILY 11/13/20 [History] Fluticasone Propionate [Flovent Hfa 220 mcg] 2 puff INHALATION RT-BID 11/13/20 [History] metFORMIN HCL [Glucophage] 500 mg PO DAILY 11/13/20 [History] Atorvastatin [Lipitor] 80 mg PO HS #30 tab 11/14/20 [Rx] Metoprolol Tartrate [Lopressor] 50 mg PO BID #60 tab 11/14/20 [Rx] Nicotine 21Mg/24Hr Patch [Habitrol] 1 each TRANSDERM DAILY #14 patch 11/14/20 [Rx] Nitroglycerin Sl Tabs [Nitrostat] 0.4 mg SUBLINGUAL Q5M PRN #30 tab 11/14/20 [Rx] Prasugrel [Effient] 10 mg PO DAILY #30 tab 11/14/20 [Rx] Follow up Appointment(s)/Referral(s): Vijaya Candelaria MD [Primary Care Provider] - 3 Days Nirav Styles MD [STAFF PHYSICIAN] - 1 Week
[2020-11-14 17:02] LABS: Glucose,Whole Blood 168 mg/dL (75-99)
[2020-11-14] MEDS: PRASUGREL 10 MG TAB PO SCH (17:38)
[2020-11-14 21:00] LABS: Glucose,Whole Blood 114 mg/dL (75-99)
[2020-11-14] MEDS ORDERED: ATORVASTATIN 80 MG TAB PO SCH (21:00)
[2020-11-15] MEDS: PANTOPRAZOLE 40 MG TABLET PO SCH (06:19)
[2020-11-15] MEDS: ACETAMINOPHEN TAB 500 MG TAB PO PRN (06:21)
[2020-11-15 07:02] LABS: Glucose,Whole Blood 120 mg/dL (75-99)
[2020-11-15] MEDS: IPRATROPIUM 0.5 MG/2.5 ML NEBU INHALATION SCH (07:42)
[2020-11-15] MEDS: FORMOTEROL FUMARATE 20 MCG/2 ML NEBU INHALATION SCH (07:42)
[2020-11-15] MEDS: FLUTICASONE 110 MCG INHALER INHALATION SCH (07:42)
[2020-11-15 08:44] VITALS: BP 103/63; RESP 18; TEMP 97.8
[2020-11-15] MEDS: NICOTINE 14MG/24HR PATCH TRANSDERM SCH (09:26)
[2020-11-15] MEDS: ASPIRIN 81 MG PO SCH (09:28)
[2020-11-15] MEDS: ALPRAZolam 0.5 MG TAB PO SCH (09:28)
[2020-11-15] MEDS: METOPROLOL TARTRATE 25 MG TAB PO SCH (09:30)
[2020-11-15] MEDS: DULoxetine HCL 60 MG CAPSULE.DR PO SCH (09:30)
[2020-11-15] MEDS: PRASUGREL 10 MG TAB PO SCH (09:32)
[2020-11-15 10:25] VITALS: PULSE 74
--- NOTE | 2020-11-15 11:05 | P.PN ---
Subjective Progress Note Date: 11/15/20 Principal diagnosis: Acute non-ST elevation myocardial infarction This is a 60-year-old female patient was coronary artery disease and prior stenting of the RCA as well as history of smoking who continues to smoke as well as hypertension and dyslipidemia presented to the emergency department complaining of chest discomfort and she was ruled in for acute non-ST patient myocardial infarction. The patient follows normally was Dr. Berry on regular basis. She underwent yesterday heart catheterization and she was found to have critical 2 vessel CAD involving the RCA as well as LCx. She underwent successful stenting of both with an excellent angiographic results. The patient was seen today November 152020. She is asymptomatic from a cardiovascular standpoint overview. She is on dual antiplatelet therapy along with high intensity statin. From a cardiovascular standpoint of view, the patient can be discharged home. Objective - Vital Signs Vital signs: Vital Signs Temp 97.8 F 11/15/20 08:20 Pulse 74 11/15/20 10:15 Resp 18 11/15/20 08:20 BP 103/63 11/15/20 08:20 Pulse Ox 95 11/15/20 08:20 Intake & Output 11/14/20 11/15/20 11/15/20 18:59 06:59 18:59 Intake Total 462 240 Balance 462 240 Weight 71.668 kg Intake: Intake, IV Titration 0 Amount Sodium Chloride 0.9% 1, 0 000 ml @ 75 mls/hr IV . [id number] [facility] Rx#:[id number] Oral 462 240 Other: # Voids 1 - Constitutional General appearance: Present: no acute distress - Respiratory Respiratory: bilateral: CTA - Cardiovascular Rhythm: regular Heart sounds: normal: S1, S2 - Labs CBC & Chem 7: 11/14/20 05:49 11/14/20 03:50 Labs: Abnormal Lab Results - Last 24 Hours (Table) 11/14/20 11/14/20 11/14/20 Range/Units 11:57 17:00 20:52 POC Glucose (mg/dL) 132 H 168 H 114 H (75-99) mg/dL 11/15/20 Range/Units 07:00 POC Glucose (mg/dL) 120 H (75-99) mg/dL Assessment and Plan Assessment: Assessment #1 acute non-ST elevation myocardial infarction #2 mild ischemic cardiomyopathy was EF between 40-45% #3 significant history of smoking #4 hypertension #5 dyslipidemia Plan #1 continue dual antiplatelet therapy #2 continue high intensity statin #3 continue beta eda with metoprolol #4 smoking cessation was discussed with her #5 the patient can be discharged home
--- NOTE | 2020-11-15 15:21 | P.DS ---
Providers Date of admission: 11/14/20 08:39 Attending physician: Denzel Barba Consults: 11/13/20 08:14 Consult Physician Routine Consulting Provider: Cardiology Rosaura Consult Reason/Comments: chest pain Do you want consulting provider notified?: Yes 11/13/20 17:49 Consult Physician Routine Consulting Provider: Cardiology Rosaura Consult Reason/Comments: Post Interventional patient Do you want consulting provider notified?: Already Contacted Primary care physician: Teagan Kahn [facility] Course: 57-year-old the female with known history of COPD coronary artery disease given with complaints of chest pressure-like sensation and started the today morning to lasted for about an hour radiating to the jaw as well as the back of the shoulder blades 8/10 in severity resolved at this time patient took baby aspirin nitro which are without any significant help patient denied any so his shortness of breath nausea diaphoresis patient chest pain is not associated with food nonpleuritic in nature. Patient had an EKG which showed inverted T waves in the anterolateral leads which were not present in the previous EKGs. 11/14/2020 Patient's second troponin went up patient had typical symptoms because of which the patient was started on IV heparin was taken to [employer] found to have stenosis of RCA and circumflex in significant disease in LAD patient received 3 stents to RCA and circumflex. Nicotine cessation counseling was provided and patient is clinically doing well wanted to go home . 11/15/2020 Patient doesn't have any chest pain, no arrhythmias. Patient is clinically doin g well is being discharged today PHYSICAL EXAMINATION: GENERAL: The patient is alert and oriented x3, not in any acute distress. Well developed, well nourished. HEENT: Pupils are round and equally reacting to light. EOMI. No scleral icterus. No conjunctival pallor. Normocephalic, atraumatic. No pharyngeal erythema. No thyromegaly. CARDIOVASCULAR: S1 and S2 present. No murmurs, rubs, or gallops. PULMONARY: Chest is clear to auscultation, no wheezing or crackles. ABDOMEN: Soft, nontender, nondistended, normoactive bowel sounds. No palpable organomegaly. MUSCULOSKELETAL: No joint swelling or deformity. EXTREMITIES: No cyanosis, clubbing, or pedal edema. NEUROLOGICAL: Gross neurological examination did not reveal any focal deficits. SKIN: No rashes. Assessment and Plan Plan: Acute non-ST elevation myocardial infarction: Patient had stents to RCA and circumflex as mentioned above patient will be discharged today clinical doing well. -COPD without any acute exacerbation, -Continued nicotine use -Hypertension -Hyperlipidemia -Gastroesophageal reflux disease -Depression. Patient Condition at Discharge: Serious Plan - Discharge Summary Discharge Rx Participant: No New Discharge Prescriptions: New Nicotine 21Mg/24Hr Patch [Habitrol] 1 each TRANSDERM DAILY #14 patch Prasugrel [Effient] 10 mg PO DAILY #30 tab Atorvastatin [Lipitor] 80 mg PO HS #30 tab Metoprolol Tartrate [Lopressor] 50 mg PO BID #60 tab Continue Aspirin EC [Ecotrin Low Dose] 81 mg PO QAM Umeclidinium Perkins [Incruse Ellipta] 1 puff INHALATION RT-DAILY Salmeterol Xinafoate [Serevent Diskus] 1 puff INHALATION RT-Q12H Albuterol Nebulized [Ventolin Nebulized] 2.5 mg INHALATION RT-TID PRN PRN Reason: Shortness Of Breath ALPRAZolam [Xanax] 0.5 mg PO BID Albuterol Inhaler [Ventolin Hfa Inhaler] 2 puff INHALATION RT-QID PRN PRN Reason: Shortness Of Breath Acetaminophen Tab [Tylenol] 1,000 mg PO Q8H PRN PRN Reason: Pain Omeprazole [PriLOSEC] 20 mg PO AC-BRKFST #14 cap metFORMIN HCL [Glucophage] 500 mg PO DAILY DULoxetine HCL [Cymbalta] 60 mg PO DAILY Fluticasone Propionate [Flovent Hfa 220 mcg] 2 puff INHALATION RT-BID Nitroglycerin Sl Tabs [Nitrostat] 0.4 mg SUBLINGUAL Q5M PRN #30 tab PRN Reason: Chest Pain Discontinued Metoprolol Tartrate [Lopressor] 25 mg PO BID #60 tab Atorvastatin [Lipitor] 20 mg PO HS Discharge Medication List Aspirin EC [Ecotrin Low Dose] 81 mg PO QAM 12/19/14 [History] Salmeterol Xinafoate [Serevent Diskus] 1 puff INHALATION RT-Q12H 04/17/18 [History] Umeclidinium Perkins [Incruse Ellipta] 1 puff INHALATION RT-DAILY 04/17/18 [History] ALPRAZolam [Xanax] 0.5 mg PO BID 01/31/20 [History] Acetaminophen Tab [Tylenol] 1,000 mg PO Q8H PRN 01/31/20 [History] Albuterol Inhaler [Ventolin Hfa Inhaler] 2 puff INHALATION RT-QID PRN 01/31/20 [History] Albuterol Nebulized [Ventolin Nebulized] 2.5 mg INHALATION RT-TID PRN 01/31/20 [History] Omeprazole [PriLOSEC] 20 mg PO AC-BRKFST #14 cap 01/31/20 [Rx] DULoxetine HCL [Cymbalta] 60 mg PO DAILY 11/13/20 [History] Fluticasone Propionate [Flovent Hfa 220 mcg] 2 puff INHALATION RT-BID 11/13/20 [History] metFORMIN HCL [Glucophage] 500 mg PO DAILY 11/13/20 [History] Atorvastatin [Lipitor] 80 mg PO HS #30 tab 11/14/20 [Rx] Metoprolol Tartrate [Lopressor] 50 mg PO BID #60 tab 11/14/20 [Rx] Nicotine 21Mg/24Hr Patch [Habitrol] 1 each TRANSDERM DAILY #14 patch 11/14/20 [Rx] Nitroglycerin Sl Tabs [Nitrostat] 0.4 mg SUBLINGUAL Q5M PRN #30 tab 11/14/20 [Rx] Prasugrel [Effient] 10 mg PO DAILY #30 tab 11/14/20 [Rx] Follow up Appointment(s)/Referral(s): Camden Berry MD [STAFF PHYSICIAN] - 11/20/20 2:30 pm Vijaya Candelaria MD [Primary Care Provider] - 11/26/20 10:30 am Patient Instructions/Handouts: *Surgery [facility] - After Heart Catheterization - Ticket Counter Instructions Discharge Disposition: HOME SELF-CARE
== END 2020-11-15 11:11 | disposition home or self-care (01) | DRG 247 ==
LOC: EC 06:30 → 6NMEDSUR 07:56 → 3SCARD 13:54 → OBSVTOIN 11-14 08:39
PROVIDERS: ADMIT Hospitalist; ATTEND Hospitalist
PROC: B41F0ZZ Fluoroscopy of Right Lower Extremity Arteries using High Osmolar Contrast (ICD-10-PCS; principal; 2020-11-14)
PROC: 4A023N7 Measurement of Cardiac Sampling and Pressure, Left Heart, Percutaneous Approach (ICD-10-PCS; principal; 2020-11-14)
PROC: B2111ZZ Fluoroscopy of Multiple Coronary Arteries using Low Osmolar Contrast (ICD-10-PCS; principal; 2020-11-14)
PROC: 027136Z Dilation of Coronary Artery, Two Arteries with Three Drug-eluting Intraluminal Devices, Percutaneous Approach (ICD-10-PCS; principal; 2020-11-14)
DX: I21.4 Non-ST elevation (NSTEMI) myocardial infarction (principal); E78.5 Hyperlipidemia, unspecified; J44.9 Chronic obstructive pulmonary disease, unspecified; I25.10 Atherosclerotic heart disease of native coronary artery without angina pectoris; I25.5 Ischemic cardiomyopathy; Z20.822 Contact with and (suspected) exposure to COVID-19; I10 Essential (primary) hypertension; K57.90 Diverticulosis of intestine, part unspecified, without perforation or abscess without bleeding; F41.9 Anxiety disorder, unspecified; F32.9 Major depressive disorder, single episode, unspecified; I25.2 Old myocardial infarction; F17.210 Nicotine dependence, cigarettes, uncomplicated; Z71.6 Tobacco abuse counseling; Z79.82 Long term (current) use of aspirin; Z79.84 Long term (current) use of oral hypoglycemic drugs; Z79.899 Other long term (current) drug therapy; Z79.51 Long term (current) use of inhaled steroids; Z95.5 Presence of coronary angioplasty implant and graft; Z86.69 Personal history of other diseases of the nervous system and sense organs; Z87.442 Personal history of urinary calculi; Z87.11 Personal history of peptic ulcer disease; Z90.710 Acquired absence of both cervix and uterus; Z90.49 Acquired absence of other specified parts of digestive tract; Z87.19 Personal history of other diseases of the digestive system; Z87.42 Personal history of other diseases of the female genital tract; Z87.39 Personal history of other diseases of the musculoskeletal system and connective tissue; Z87.2 Personal history of diseases of the skin and subcutaneous tissue; Z98.890 Other specified postprocedural states; Z88.5 Allergy status to narcotic agent; Z88.0 Allergy status to penicillin; Z88.8 Allergy status to other drugs, medicaments and biological substances; Z82.49 Family history of ischemic heart disease and other diseases of the circulatory system; Z80.1 Family history of malignant neoplasm of trachea, bronchus and lung; Z80.8 Family history of malignant neoplasm of other organs or systems; Z83.79 Family history of other diseases of the digestive system; K21.9 Gastro-esophageal reflux disease without esophagitis
CPT/HCPCS: 36415; 71046; 80048; 80053; 80061; 83690; 83735; 83880; 84484; 85025; 85610; 85730; 87635; 93005; 93306; 93458; 94640; 96374; 99285

== ENCOUNTER → 2021-04-15 | Outpatient (CLI) | payer MEDICARE, OTHER ==
[2021-04-15 20:48] LABS: Hemoglobin A1C 6.1 % (4.0-6.0)
[2021-04-15 21:18] LABS: African American GFR (CKD) 94.2 (60.0-200.0); Anion Gap 12.2 mmol/L (4.00-12.00); BUN/Creat Ratio 7.5 Ratio (12.00-20.00); Calcium 8.7 mg/dL (8.7-10.3); Carbon Dioxide 16.8 mmol/L (21.6-31.8); Non-African American GFR(CKD) 81.3 (60.0-200.0); Potassium 3.8 mmol/L (3.5-5.5)
== END | disposition home or self-care (01) ==
LOC: LABWHC1 08:38
PROVIDERS: ATTEND Internal Medicine
DX: E11.9 Type 2 diabetes mellitus without complications (principal)
CPT/HCPCS: 36415; 80048; 83036

== ENCOUNTER → 2021-06-06 | Outpatient (CLI) | payer MEDICARE, OTHER ==
[2021-06-06 15:38] LABS: Chol/HDL Ratio 3.45 Ratio; LDL Cholesterol,Calculated 35.2 mg/dL (0.0-131.0); VLDL Calculation 62.8 mg/dL (5.00-40.00)
== END | disposition home or self-care (01) ==
LOC: LABWHC1 08:26
PROVIDERS: ATTEND Internal Medicine Interventional Cardiology
DX: E78.2 Mixed hyperlipidemia (principal)
CPT/HCPCS: 36415; 80061; 83036; 84443; 84450; 84460

== ENCOUNTER 2021-08-18 14:01 | Observation (INO) | payer MEDICARE, OTHER ==
[2021-08-18 14:27] LABS: Glucose,Whole Blood 130 mg/dL (75-99)
[2021-08-18] MEDS ORDERED: SODIUM CHLORIDE 0.9% 500 ML 500 ML IV STA (14:47)
[2021-08-18] MEDS ORDERED: ASPIRIN 81 MG PO STA (14:47)
[2021-08-18 15:11] LABS: Basophils # (A) 0.1 k/uL (0-0.2); Basophils % (A) 1 %; Eosinophils # (A) 0.2 k/uL (0-0.7); Eosinophils % (A) 2 %; HCT 44.9 % (34.0-46.0); HGB 14.8 gm/dL (11.4-16.0); Lymphocytes # (A) 1.2 k/uL (1.0-4.8); Lymphocytes % (A) 18 %; MCH 31.3 pg (25.0-35.0); MCHC 32.8 g/dL (31.0-37.0); MCV 95.2 fL (80.0-100.0); Mean Platelet Volume 8.2; Monocytes # (A) 0.6 k/uL (0-1.0); Monocytes % (A) 9 %; Neutrophils # (A) 4.7 k/uL (1.3-7.7); Neutrophils % (A) 69 %; Platelet Count 257 k/uL (150-450); RBC 4.72 m/uL (3.80-5.40); RDW 12.9 % (11.5-15.5); WBC 6.9 k/uL (3.8-10.6)
[2021-08-18] MEDS ORDERED: ONDANSETRON 4 MG/2 ML VIAL IVP STA (15:14)
[2021-08-18] MEDS ORDERED: HYDROmorphone 0.5 MG/0.5 ML SYRINGE IVP STA (15:14)
[2021-08-18] MEDS ORDERED: HEPARIN SOD,PORK IN 0.45% NACL 25,000 UNIT in 0.45% NACL 1 250ML.BAG IV SCH (15:15)
[2021-08-18] MEDS ORDERED: HEPARIN SODIUM 1,000 UN/ML (10ML VL) IV ONE (15:15)
--- NOTE | 2021-08-18 15:20 | ED ---
General Adult HPI - General Chief complaint: Chest Pain Stated complaint: chest pain Time Seen by Provider: 08/18/21 15:00 Source: patient, family, RN notes reviewed, old records reviewed Mode of arrival: wheelchair Limitations: no limitations - History of Present Illness Initial comments: 60-year-old female, alert and oriented 4, presents to the emergency room with complaints of chest pain and right jaw pain that started around noon and has been constant. She states this chest pain is similar to the chest pain she had when she had her GA in November. She states that her blood sugar was also elevated today over 220. She also is complaining of a migraine headache which is typical of her migraine headaches in the past and behind her right eye. Patient denies any vomiting or diarrhea but does state she has nausea. She does have a history of GA with multiple stents, asthma, and COPD. Her last stent was placed in November of this year. She states that she did have coronavirus July 31 and received monoclonal antibodies. -: days(s) (1) Location: head, face (right jaw), chest Radiation: non-radiation Severity scale (1-10): 6 Quality: aching Consistency: constant Improves with: none Worsens with: other (Headache worsens with light) Associated Symptoms: chest pain, headaches, other (jaw pain) - Related Data Home Medications Medication Instructions Recorded Confirmed Aspirin EC [Ecotrin Low Dose] 81 mg PO DAILY 12/19/14 08/18/21 Salmeterol Xinafoate [Serevent 1 puff INHALATION RT-Q12H 04/17/18 08/18/21 Diskus] Umeclidinium Fate [Incruse 1 puff INHALATION RT-DAILY 04/17/18 08/18/21 Ellipta] ALPRAZolam [Xanax] 0.5 mg PO HS 01/31/20 08/18/21 Acetaminophen Tab [Tylenol] 1,000 mg PO Q6H PRN 01/31/20 08/18/21 Albuterol Inhaler [Ventolin Hfa 2 puff INHALATION RT-Q6H PRN 01/31/20 08/18/21 Inhaler] metFORMIN HCL [Glucophage] 500 mg PO DAILY 11/13/20 08/18/21 Fluticasone Propionate [Flovent 2 puff INHALATION RT-BID 08/18/21 08/18/21 Hfa 110 mcg] Metoprolol Tartrate [Lopressor] 50 mg PO TID-W/MEALS 08/18/21 08/18/21 Omeprazole [PriLOSEC] 20 mg PO DAILY 08/18/21 08/18/21 Previous Rx's Medication Instructions Recorded Atorvastatin [Lipitor] 80 mg PO HS #30 tab 11/14/20 Nitroglycerin Sl Tabs [Nitrostat] 0.4 mg SUBLINGUAL Q5M PRN #30 tab 11/14/20 Prasugrel [Effient] 10 mg PO DAILY #30 tab 11/14/20 Allergies Allergy/AdvReac Type Severity Reaction Status Date / Time amoxicillin Allergy Rash/Hives Verified 08/18/21 16:33 codeine Allergy Rash/Hives Verified 08/18/21 16:33 sumatriptan [From Imitrex] AdvReac Nausea & Verified 08/18/21 16:33 Vomiting Review of Systems ROS Statement: Those systems with pertinent positive or pertinent negative responses have been documented in the HPI. ROS Other: All systems not noted in ROS Statement are negative. Past Medical History Past Medical History: Asthma, COPD, Hyperlipidemia, Hypertension, Myocardial Infarction ([place]), Skin Disorder Additional Past Medical History / Comment(s): diverticulosis, nephrolithiasis- stones in both kidneys with L side worse, migraines, skin sensitive to sun exposure. STOMACH ULCER Last Myocardial Infarction Date:: 09/17/14 History of Any Multi-Drug Resistant Organisms: None Reported Past Surgical History: Cholecystectomy, Heart Catheterization With Stent, Hysterectomy, Orthopedic Surgery Additional Past Surgical History / Comment(s): Lithotripsy, R breast 4 tumors removed all benign, Tumor removed left ear, D & C x 4, colonoscopy, egd, kidney stent, lung RLL mass removed , Right arm surgery x3 Past Anesthesia/Blood Transfusion Reactions: Postoperative Nausea & Vomiting (PONV) Additional Past Anesthesia/Blood Transfusion Reaction / Comment(s): headache for 4 days Date of Last Stent Placement:: Past Psychological History: Anxiety, Depression Smoking Status: Current every day smoker Past Alcohol Use History: None Reported Past Drug Use History: None Reported - Past Family History Father Family Medical History: Cancer, Myocardial Infarction ([place]) Additional Family Medical History / Comment(s): Father had throat and lung cancer. He was a smoker. Mother Family Medical History: Coronary Artery Disease (CAD), Hypertension Additional Family Medical History / Comment(s): Mother has a hiatal hernia that affects her breathing. She also has heart problems General Exam Limitations: no limitations General appearance: alert, in no apparent distress Head exam: Present: atraumatic, normocephalic, normal inspection Eye exam: Present: normal appearance, PERRL, EOMI. Absent: scleral icterus, conjunctival injection, periorbital swelling, periorbital tenderness ENT exam: Present: normal exam, normal oropharynx, mucous membranes moist Respiratory exam: Present: normal lung sounds bilaterally. Absent: respiratory distress, wheezes, rales, rhonchi, stridor, accessory muscle use Cardiovascular Exam: Present: regular rate, normal rhythm, normal heart sounds. Absent: systolic murmur, diastolic murmur, rubs, gallop, clicks, JVD GI/Abdominal exam: Present: soft, normal bowel sounds. Absent: distended, tenderness, guarding, rebound, rigid Extremities exam: Present: normal inspection, full ROM, normal capillary refill. Absent: tenderness, pedal edema, joint swelling, calf tenderness Back exam: Present: normal inspection, full ROM. Absent: tenderness, CVA tenderness (R), CVA tenderness (L), rash noted Neurological exam: Present: alert, oriented X3 Psychiatric exam: Present: normal affect, normal mood Skin exam: Present: warm, dry, intact, normal color. Absent: rash, cyanosis, diaphoretic, erythema, petechiae, pallor, mottled Course Vital Signs 08/18/21 08/18/21 08/18/21 14:17 17:25 19:27 Temperature 99.1 F 97.8 F Pulse Rate 99 93 100 Respiratory 20 18 16 Rate Blood Pressure 117/72 138/79 138/79 O2 Sat by Pulse 95 96 95 Oximetry 08/18/21 21:42 Temperature 98.4 F Pulse Rate 84 Respiratory 18 Rate Blood Pressure 122/65 O2 Sat by Pulse 94 L Oximetry - Reevaluation(s) Reevaluation #1: 08/18/21 16:06 Patient states that her chest pain and jaw pain has been relieved with Dilaudid and her nausea is resolved resolved with Zofran. She states he still has a slight headache on the right side. Time: 16:06 Medical Decision Making - Medical Decision Making 60-year-old female patient presents to the emergency room with complaints of midsternal chest pain radiating into her right jaw with nausea since around noon. She states this pain is similar to the pain she's had with her previous MIs. She denies any diaphoresis or vomiting. She states that she also has a right-sided temporal headache similar to her previous migraine headaches. Patient was given Dilaudid and Zofran with relief from her chest pain and nausea. She continues to have headache. Her troponin is negative and her EKG shows no significant changes or ST elevation. Patient will be admitted for unstable angina with cardiology consult. She was started on heparin drip and given an aspirin. Case was discussed with Dr. Johnson. - Lab Data Result diagrams: 08/18/21 14:59 08/18/21 14:59 Lab Results 08/18/21 08/18/21 08/18/21 Range/Units 14:25 14:59 14:59 WBC 6.9 (3.8-10.6) k/uL RBC 4.72 (3.80-5.40) m/uL Hgb 14.8 (11.4-16.0) gm/dL Hct 44.9 (34.0-46.0) % MCV 95.2 (80.0-100.0) fL MCH 31.3 (25.0-35.0) pg MCHC 32.8 (31.0-37.0) g/dL RDW 12.9 (11.5-15.5) % Plt Count 257 (150-450) k/uL MPV 8.2 Neutrophils % 69 % Lymphocytes % 18 % Monocytes % 9 % Eosinophils % 2 % Basophils % 1 % Neutrophils # 4.7 (1.3-7.7) k/uL Lymphocytes # 1.2 (1.0-4.8) k/uL Monocytes # 0.6 (0-1.0) k/uL Eosinophils # 0.2 (0-0.7) k/uL Basophils # 0.1 (0-0.2) k/uL PT 9.6 (9.0-12.0) sec INR 0.9 (<1.2) APTT 22.3 (22.0-30.0) sec D-Dimer 0.32 (<0.60) mg/L FEU Sodium (137-145) mmol/L Potassium (3.5-5.1) mmol/L Chloride (98-107) mmol/L Carbon Dioxide (22-30) mmol/L Anion Gap mmol/L BUN (7-17) mg/dL Creatinine (0.52-1.04) mg/dL Est GFR (CKD-EPI)AfAm (>60 ml/min/1.73 sqM) Est GFR (CKD-EPI)NonAf (>60 ml/min/1.73 sqM) Glucose (74-99) mg/dL POC Glucose (mg/dL) 130 H (75-99) mg/dL POC Glu Executive Coach ID Willing, Fatmata Calcium (8.4-10.2) mg/dL Magnesium (1.6-2.3) mg/dL Total Bilirubin (0.2-1.3) mg/dL AST (14-36) U/L ALT (4-34) U/L Alkaline Phosphatase (38-126) U/L Troponin I (0.000-0.034) ng/mL Total Protein (6.3-8.2) g/dL Albumin (3.5-5.0) g/dL 08/18/21 08/18/21 Range/Units 14:59 14:59 WBC (3.8-10.6) k/uL RBC (3.80-5.40) m/uL Hgb (11.4-16.0) gm/dL Hct (34.0-46.0) % MCV (80.0-100.0) fL MCH (25.0-35.0) pg MCHC (31.0-37.0) g/dL RDW (11.5-15.5) % Plt Count (150-450) k/uL MPV Neutrophils % % Lymphocytes % % Monocytes % % Eosinophils % % Basophils % % Neutrophils # (1.3-7.7) k/uL Lymphocytes # (1.0-4.8) k/uL Monocytes # (0-1.0) k/uL Eosinophils # (0-0.7) k/uL Basophils # (0-0.2) k/uL PT (9.0-12.0) sec INR (<1.2) APTT (22.0-30.0) sec D-Dimer (<0.60) mg/L FEU Sodium 138 (137-145) mmol/L Potassium 3.7 (3.5-5.1) mmol/L Chloride 109 H (98-107) mmol/L Carbon Dioxide 20 L (22-30) mmol/L Anion Gap 9 mmol/L BUN 3 L (7-17) mg/dL Creatinine 0.70 (0.52-1.04) mg/dL Est GFR (CKD-EPI)AfAm >90 (>60 ml/min/1.73 sqM) Est GFR (CKD-EPI)NonAf >90 (>60 ml/min/1.73 sqM) Glucose 111 H (74-99) mg/dL POC Glucose (mg/dL) (75-99) mg/dL POC Glu Executive Coach ID Calcium 8.8 (8.4-10.2) mg/dL Magnesium 1.9 (1.6-2.3) mg/dL Total Bilirubin 0.6 (0.2-1.3) mg/dL AST 79 H (14-36) U/L ALT 30 (4-34) U/L Alkaline Phosphatase 123 (38-126) U/L Troponin I <0.012 (0.000-0.034) ng/mL Total Protein 6.7 (6.3-8.2) g/dL Albumin 3.5 (3.5-5.0) g/dL Disposition Clinical Impression: Unstable angina Disposition: ADMITTED IP TO THIS [facility] Decision Date: 08/18/21 Decision Time: 16:09
[2021-08-18 15:23] LABS: ALT 30 U/L (4-34); AST 79 U/L (14-36); African American GFR (CKD) >90 (>60 ml/min/1.73 sqM); Albumin 3.5 g/dL (3.5-5.0); Alkaline Phosphatase 123 U/L (38-126); Anion Gap 9 mmol/L; Blood Urea Nitrogen 3 mg/dL (7-17); Calcium 8.8 mg/dL (8.4-10.2); Carbon Dioxide 20 mmol/L (22-30); Chloride 109 mmol/L (98-107); Glucose 111 mg/dL (74-99); Magnesium 1.9 mg/dL (1.6-2.3); Non-African American GFR(CKD) >90 (>60 ml/min/1.73 sqM); Potassium 3.7 mmol/L (3.5-5.1); Sodium 138 mmol/L (137-145); Total Bilirubin 0.6 mg/dL (0.2-1.3); Total Protein 6.7 g/dL (6.3-8.2)
--- NOTE | 2021-08-18 15:24 | XR ---
EXAMINATION TYPE: XR chest 2V DATE OF EXAM: 08/18/2021 COMPARISON: Chest x-ray November 13, 2020 HISTORY: History of asthma, COPD, and hypertension presents with chest pain. TECHNIQUE: Frontal and lateral views of the chest are obtained. FINDINGS: There is chronic parenchymal change with left lower lung linear scarring and/or atelectasi s. The cardiac silhouette size is upper limits of normal. There are new coronary stents appreciated on lateral view. The osseous structures are intact. IMPRESSION: Chronic changes without acute pulmonary process.
[2021-08-18 15:25] LABS: INR 0.9 (<1.2); Partial Thromboplastin Time 22.3 sec (22.0-30.0); Prothrombin Time 9.6 sec (9.0-12.0)
[2021-08-18] MEDS ORDERED: ONDANSETRON 4 MG/2 ML VIAL IVP PRN (16:09)
[2021-08-18] MEDS ORDERED: NALOXONE 0.4 MG/ML 1 ML VIAL IV PRN (16:09)
[2021-08-18] MEDS ORDERED: HYDROmorphone 0.5 MG/0.5 ML SYRINGE IVP PRN (16:09)
[2021-08-18] MEDS ORDERED: ACETAMINOPHEN TAB 325 MG TAB PO PRN (16:09)
[2021-08-18] MEDS ORDERED: SODIUM CHLORIDE 0.9% 1,000 ML IV SCH (16:15)
[2021-08-18] MEDS: IBUPROFEN 400 MG TAB PO PRN (17:27)
[2021-08-18] MEDS ORDERED: NITROGLYCERIN SL TABS 0.4 MG TAB SUBLINGUAL PRN (17:59)
--- NOTE | 2021-08-18 18:31 | HP ---
HISTORY AND PHYSICAL DATE OF SERVICE: 08/18/2021. CHIEF COMPLAINTS: Chest pain and headaches. HISTORY OF PRESENT ILLNESS: This 60-year-old woman with a past medical history of multiple medical problems being followed by Dr. Candelaria in the office setting was recently admitted with acute non-ST- segment-elevation myocardial infarction. The patient had stents to the RCA, circumflex and the patient was discharged in November of last year. Currently the patient complaining of chest pain in the anterior part of the chest. Patient came to [facility]. The pain was reported as pressure type of pain. The blood sugar was also elevated up to 220. The patient is concerned. Patient also had migraine episode and right temporal headache. The patient came to [facility] and was admitted to the hospital for further evaluation and treatment. There is no history of fever, rigors, no history of headache, loss of consciousness or seizures at this time. No history of any palpitations, hematochezia or melena at this time. PAST MEDICAL HISTORY: History of asthma, COPD, hypertension, hyperlipidemia, history of myocardial infarction, stents. HOME MEDICATIONS: Prior to admission include which is reviewed which include: Metoprolol, salmeterol, fluticasone, metformin, , omeprazole. Dose, and other medications reviewed. ALLERGIES: AMOXICILLIN, CODEINE AND SUMATRIPTAN. FAMILY HISTORY: History of cancer in the family. SOCIAL HISTORY: History of smoking, continued ongoing. REVIEW OF SYSTEMS: ENT: As mentioned earlier. CARDIOVASCULAR as mentioned earlier. RESPIRATORY: As mentioned earlier. GI: No nausea or vomiting. : No dysuria. NERVOUS SYSTEM: No numbness or weakness. ALLERGY/IMMUNOLOGY: No asthma, hayfever. MUSCULOSKELETAL as mentioned earlier. HEMATOLOGY/ONCOLOGY: No history of anemia. ENDOCRINE: No history of diabetes mellitus, hypothyroidism. CONSTITUTIONAL: As mentioned earlier. DERMATOLOGY negative. RHEUMATOLOGY: Negative. PSYCHIATRIC: As mentioned earlier. PHYSICAL EXAMINATION: The patient is alert and oriented times three. Pulse 99, blood pressure 117/72, respiration 20, temperature 99.1, pulse ox 94% on room air. HEENT: Conjunctivae normal. NECK: No JVD. CARDIOVASCULAR: S1, S2 muffled. RESPIRATIONS: Breath sounds diminished in the bases. A few scattered rhonchi. No crackles. ABDOMEN: Soft, nontender. No mass palpable. LEGS: No edema. No swelling. NERVOUS SYSTEM: Higher functions as mentioned. Moves all four limbs. No focal motor or sensory deficits. LYMPHATICS: No lymph nodes palpable in the neck, axillae or groin. SKIN: No ulcer, no rash and no bleeding. JOINTS: No active deforming arthropathy. LABS: CBC within normal limits. Sodium 138, potassium 3.7. Covid 19 is positive. ASSESSMENT: 1. Chest pain for evaluation, possibly unstable angina. 2. Acute COVID-19 infection. 3. Headaches, possible migraine. 4. Right-sided headaches. 5. History of asthma, chronic obstructive pulmonary disease. 6. Hypertension. 7. Hyperlipidemia. 8. History of myocardial infarction. 9. History of diverticulosis. 10.History of nephrolithiasis. 11.History of cholecystectomy. 12.History of coronary artery disease, stent. 13.History of anxiety, depression. 14.History of nicotine dependence, continued ongoing. 15.FULL CODE. RECOMMENDATIONS AND DISCUSSION: In this 60-year-old woman who presented with multiple complex medical issues, we will monitor the patient closely, monitor the patient closely. We will closely follow with Cardiology. Unstable angina protocol. The patient also had Covid 19. D-dimer was negative. The chest x-ray which was reviewed personally by me showed chronic changes without any acute pulmonary process. I would also recommend continue to monitor. AST slightly elevated. Repeat labs will be ordered. Prognosis guarded because of multiple complex medical issues. Further recommendations to follow. A copy of this dictation is being forwarded to Dr. Candelaria who is the primary physician. Will also obtain a CT angio of the chest to complete the workup. MMODL / IJN: [id number] / MEHRDAD
--- NOTE | 2021-08-18 19:42 | CT ---
EXAMINATION TYPE: CT angio chest DATE OF EXAM: 08/18/2021 6:41 PM COMPARISON: Same-day radiographs. CT abdomen 01/31/2020. HISTORY: Elevated d-dimer, shortness of breath. CT DLP: 266.2 mGycm Automated exposure control for dose reduction was used. CONTRAST: CTA scan of the thorax is performed with IV Contrast, patient injected with 100 mL of Isovue 370, pul monary embolism protocol. MIP images are created and reviewed. FINDINGS: LUNGS: There is a 2.8 x 2.6 cm masslike lesion with adjacent moderate cavitation. There is minimal rodney rrounding opacity. There is additional mild dependent atelectasis. There is mild to moderate centrilo bular emphysema. There is no pleural effusion or pneumothorax seen. The tracheobronchial tree is pat ent. MEDIASTINUM: There is satisfactory enhancement of the pulmonary artery and its branches, there is no CT evidence for pulmonary embolism. There is mildly enlarged prevascular mediastinal lymph node luz uring 1 cm short axis. No pericardial effusion is seen. OTHER: No additional significant abnormality is seen. IMPRESSION: INDETERMINATE 2.8 CM RIGHT LOWER LOBE CAVITATING LESION. PARTIALLY IMAGED CORRESPONDING REGION ON RAFIA OR CT ABDOMEN DEMONSTRATED SIMPLE APPEARING CYSTIC LESION/BLEB. HOWEVER THERE IS INTERVAL COMPLEXITY OF THE LESION. CONSIDERATIONS INCLUDE MALIGNANCY OR ATYPICAL INFECTION. RECOMMEND APPROPRIATE WORKUP. NO ACUTE PE. MILD MEDIASTINAL LYMPHADENOPATHY.
[2021-08-18] MEDS ORDERED: ATORVASTATIN 80 MG TAB PO SCH (21:00)
[2021-08-18] MEDS ORDERED: ALPRAZolam 0.5 MG TAB PO SCH (21:00)
[2021-08-19] MEDS: NICOTINE 14MG/24HR PATCH TRANSDERM SCH ×2 (00:03→09:18)
--- NOTE | 2021-08-19 00:05 | P.CONS ---
History of Present Illness - Reason for Consult Consult date: 08/18/21 covid 19 Requesting physician: Denzel Barba - Chief Complaint chest pain x 1 day - History of Present Illness History of Present Illness : Patient is a 60-year-old female who apparently was recently diagnosed with a COVID-19 infection and has received a monoclonal antibody infusion patient also diagnosed with the diabetes mellitus patient presenting to the ER today with concern for elevated blood sugar of 220 and he was also complaining of some chest pain with some radiation to the right jaw the pain started around noon with the center the patient was evaluated by ER physician on arrival to the ER patient was afebrile patient was not hypoxic or need for supplemental oxygen patient did have a normal white count with no lymphopenia D-dimer was normal creatinine was normal AST was mild elevated patient did have positive COVID test patient did have a chest x-ray chronic changes without acute pulmonary process, CT angiogram of the chest has been ordered which is currently pending infectious was consulted because of a positive COVID test Review of system: CONSTITUTIONAL: Positive for weakness denies high-grade fever. EYES: No complaint. ENT: No complaint. RESPIRATORY: As per history of present illness. CARDIOVASCULAR: As per history of present illness. GENITOURINARY: No complaint. GASTROINTESTINAL: No complaint. MUSCULOSKELETAL: No complaint. INTEGUMENTARY : No complaint. PSYCHOLOGIC: No complaint. ENDOCRINE: No complaint. NEUROLOGIC: No complaint. Past medical history : Reviewed, documented below Past surgical history : Reviewed, documented below Social history: Reviewed, documented below Medications: Reviewed, as documented below EXAMINATION: Vital sigans= Reviewed and documented below GENERAL DESCRIPTION: Middle-aged female lying in bed, no distress. No tachypnea or accessory muscle of respiration use. HEENT: Shows Pallor , no scleral icterus. Oral mucous membrane is dry. NECK: Trachea central, no thyromegaly. LUNGS: Unlabored breathing. Decreased breath sound at the base. No wheeze or crackle. HEART: S1, S2, regular rate and rhythm. ABDOMEN: Soft, no tenderness , guarding or rigidity EXTREMITIES: No edema feet SKIN: No rash, no masses palpable. NEUROLOGICAL: The patient is awake, alert, oriented x3, mood and affect normal. LABS AND RADIOLOGY: Reviewed results see below Assessment : Patient with a positive COVID test in this patient initial diagnosis was on August and the patient has received monoclonal antibody infusion now presented to hospital with chest pain and elevated blood sugar patient currently with no fever patient did not have any hypoxemia and chest x- ray did not show any acute infiltrate more likely mild COVID illness from with the patient is slowly recovering Plan: 1-patient to continue heparin for unstable angina 2-we will add zinc and ascorbic acid no need for steroids 3-droplet isolation and respiratory support We will follow on clinical condition and cultures to further adjust medication if needed Thank you for this consultation we will follow the patient along with you Past Medical History Past Medical History: Asthma, COPD, Hyperlipidemia, Hypertension, Myocardial Infarction ([place]), Skin Disorder Additional Past Medical History / Comment(s): diverticulosis, nephrolithiasis- stones in both kidneys with L side worse, migraines, skin sensitive to sun exposure. STOMACH ULCER Last Myocardial Infarction Date:: 09/17/14 History of Any Multi-Drug Resistant Organisms: None Reported Past Surgical History: Cholecystectomy, Heart Catheterization With Stent, Hysterectomy, Orthopedic Surgery Additional Past Surgical History / Comment(s): Lithotripsy, R breast 4 tumors removed all benign, Tumor removed left ear, D & C x 4, colonoscopy, egd, kidney stent, lung RLL mass removed , Right arm surgery x3 Past Anesthesia/Blood Transfusion Reactions: Postoperative Nausea & Vomiting (PONV) Additional Past Anesthesia/Blood Transfusion Reaction / Comm: headache for 4 days Date of Last Stent Placement:: Past Psychological History: Anxiety, Depression Smoking Status: Current every day smoker Past Alcohol Use History: None Reported Past Drug Use History: None Reported - Past Family History Father Family Medical History: Cancer, Myocardial Infarction ([place]) Additional Family Medical History / Comment(s): Father had throat and lung cancer. He was a smoker. Mother Family Medical History: Coronary Artery Disease (CAD), Hypertension Additional Family Medical History / Comment(s): Mother has a hiatal hernia that affects her breathing. She also has heart problems Medications and Allergies Home Medications Medication Instructions Recorded Confirmed Type Aspirin EC [Ecotrin Low Dose] 81 mg PO DAILY 12/19/14 08/18/21 History Salmeterol Xinafoate [Serevent 1 puff INHALATION RT-Q12H 04/17/18 08/18/21 History Diskus] Umeclidinium [employer] [Incruse 1 puff INHALATION RT-DAILY 04/17/18 08/18/21 History Ellipta] ALPRAZolam [Xanax] 0.5 mg PO HS 01/31/20 08/18/21 History Acetaminophen Tab [Tylenol] 1,000 mg PO Q6H PRN 01/31/20 08/18/21 History Albuterol Inhaler [Ventolin Hfa 2 puff INHALATION RT-Q6H PRN 01/31/20 08/18/21 History Inhaler] metFORMIN HCL [Glucophage] 500 mg PO DAILY 11/13/20 08/18/21 History Atorvastatin [Lipitor] 80 mg PO HS #30 tab 11/14/20 08/18/21 Rx Nitroglycerin Sl Tabs [Nitrostat] 0.4 mg SUBLINGUAL Q5M PRN #30 tab 11/14/20 08/18/21 Rx Prasugrel [Effient] 10 mg PO DAILY #30 tab 11/14/20 08/18/21 Rx Fluticasone Propionate [Flovent 2 puff INHALATION RT-BID 08/18/21 08/18/21 History Hfa 110 mcg] Metoprolol Tartrate [Lopressor] 50 mg PO TID-W/MEALS 08/18/21 08/18/21 History Omeprazole [PriLOSEC] 20 mg PO DAILY 08/18/21 08/18/21 History Allergies Allergy/AdvReac Type Severity Reaction Status Date / Time amoxicillin Allergy Rash/Hives Verified 08/18/21 16:33 codeine Allergy Rash/Hives Verified 08/18/21 16:33 sumatriptan [From Imitrex] AdvReac Nausea & Verified 08/18/21 16:33 Vomiting Physical Exam Vitals: Vital Signs Temp Pulse Resp BP Pulse Ox 08/18/21 17:25 93 18 138/79 96 08/18/21 14:17 99.1 F 99 20 117/72 95 Intake and Output 08/18/21 08/18/21 08/18/21 06:59 14:59 22:59 Other: Weight 71.668 kg Results CBC & Chem 7: 08/18/21 14:59 08/18/21 14:59 Labs: Abnormal Lab Results - Last 24 Hours (Table) 08/18/21 08/18/21 08/18/21 Range/Units 14:25 14:59 16:00 Chloride 109 H (98-107) mmol/L Carbon Dioxide 20 L (22-30) mmol/L BUN 3 L (7-17) mg/dL Glucose 111 H (74-99) mg/dL POC Glucose (mg/dL) 130 H (75-99) mg/dL AST 79 H (14-36) U/L Coronavirus (PCR) Detected A (Not Detectd)
[2021-08-19 06:08] LABS: Basophils % (A) 1 %; Eosinophils # (A) 0.2 k/uL (0-0.7); Eosinophils % (A) 3 %; HCT 40.6 % (34.0-46.0); HGB 12.7 gm/dL (11.4-16.0); Lymphocytes # (A) 1.4 k/uL (1.0-4.8); Lymphocytes % (A) 30 %; MCH 30.9 pg (25.0-35.0); MCHC 31.3 g/dL (31.0-37.0); MCV 98.8 fL (80.0-100.0); Mean Platelet Volume 8.3; Monocytes # (A) 0.3 k/uL (0-1.0); Monocytes % (A) 7 %; Neutrophils # (A) 2.6 k/uL (1.3-7.7); Neutrophils % (A) 57 %; Platelet Count 232 k/uL (150-450); RBC 4.11 m/uL (3.80-5.40); RDW 13.7 % (11.5-15.5); WBC 4.7 k/uL (3.8-10.6)
[2021-08-19 06:34] LABS: African American GFR (CKD) >90 (>60 ml/min/1.73 sqM); Anion Gap 7 mmol/L; Blood Urea Nitrogen 4 mg/dL (7-17); Calcium 8.1 mg/dL (8.4-10.2); Carbon Dioxide 20 mmol/L (22-30); Chloride 113 mmol/L (98-107); Glucose 99 mg/dL (74-99); Non-African American GFR(CKD) >90 (>60 ml/min/1.73 sqM); Potassium 3.1 mmol/L (3.5-5.1); Sodium 140 mmol/L (137-145)
[2021-08-19] MEDS ORDERED: PANTOPRAZOLE 40 MG TABLET PO SCH (07:30)
[2021-08-19] MEDS ORDERED: METOPROLOL TARTRATE 50 MG TAB PO SCH (07:30)
[2021-08-19] MEDS: IBUPROFEN 400 MG TAB PO PRN (07:45)
[2021-08-19] MEDS ORDERED: IPRATROPIUM 0.5 MG/2.5 ML NEBU INHALATION SCH (08:00)
[2021-08-19 08:02] LABS: Glucose,Whole Blood 96 mg/dL (75-99)
[2021-08-19] MEDS ORDERED: ASPIRIN 81 MG PO SCH (09:00)
[2021-08-19] MEDS ORDERED: PRASUGREL 10 MG TAB PO SCH (09:00)
[2021-08-19] MEDS ORDERED: ALPRAZolam 0.25 MG TAB PO STA (09:03)
[2021-08-19 09:18] VITALS: BP 119/79; PULSE 92; RESP 16; TEMP 97.9
[2021-08-19] MEDS: FLUTICASONE 110 MCG INHALER INHALATION SCH (09:55)
[2021-08-19] MEDS: Salmeterol 50 mcg INHALER INHALATION SCH (09:55)
--- NOTE | 2021-08-19 10:00 | ECHOF ---
Referral Reason:chest pain MEASUREMENTS -------- HEIGHT: 152.4 cm WEIGHT: 71.7 kg BP: 156/91 RVIDd: 2.5 cm (< 3.3) IVSd: 1.1 cm (0.6 - 1.1) LVIDd: 5.2 cm (3.9 - 5.3) LVPWd: 1.1 cm (0.6 - 1.1) IVSs: 1.5 cm LVIDs: 3.6 cm LVPWs: 1.6 cm LA Diam: 3.2 cm (2.7 - 3.8) LAESV Index (A-L): 15.15 ml/m Ao Diam: 2.8 cm (2.0 - 3.7) AV Cusp: 2.0 cm (1.5 - 2.6) MV EXCURSION: 17.701 mm (> 18.000) MV EF SLOPE: 41 mm/s (70 - 150) EPSS: 1.2 cm MV E David: 0.67 m/s MV DecT: 214 ms MV A David: 0.87 m/s MV E/A Ratio: 0.77 AR PHT: 301 ms FINDINGS -------- Sinus rhythm. This was a technically adequate study. The left ventricular size is normal. There is borderline concentric left ventricular hypertrophy. Overall left ventricular systolic function is mildly impaired with, an EF between 45 - 50 %. The right ventricle is normal in size. Normal LA size by volume 22+/-6 ml/m2. The right atrium is normal in size. There is moderate aortic regurgitation. There is trace to mild mitral regurgitation. The tricuspid valve appears structurally normal. Unable to estimate RVSP due to inadequate TR jet s pectral doppler profile. There is no pulmonic regurgitation present. The aortic root size is normal. Normal inferior vena cava with normal inspiratory collapse consistent with estimated right atrial pre ssure of 5 mmHg. There is no pericardial effusion. CONCLUSIONS -------- 1. The left ventricular size is normal. 2. There is borderline concentric left ventricular hypertrophy. 3. Overall left ventricular systolic function is mildly impaired with, an EF between 45 - 50 %. 4. There is moderate aortic regurgitation. 5. There is trace to mild mitral regurgitation. 6. There is no pericardial effusion. SENIOR STATISTICIAN: Gladys Perez RDCS
[2021-08-19] MEDS ORDERED: POTASSIUM CHLORIDE ER 20 MEQ TAB.ER PO STA (11:47)
--- NOTE | 2021-08-19 11:48 | P.CRDCN ---
History of Present Illness Consult date: 08/19/21 History of present illness: CHIEF COMPLAINT: chest pain HISTORY OF PRESENT ILLNESS: This is a 60-year-old female with a past medical history significant for coronary artery disease with previous stenting of the RCA and circumflex, mild ischemic cardiomyopathy, hypertension, hyperlipidemia, and nicotine dependence. Patient follows in the office with Dr. Styles. We have been asked to see the patient in consultation for chest pain. Patient presented to the hospital after having an episode of chest pain at home. She also reported having a headache. The patient was found to be Covid positive which she was diagnosed in July 2021. This morning, the patient denies any chest pain and is requesting to be discharged home. DIAGNOSTICS: EKG reveals sinus mechanism with T-wave inversions in lateral leads, present on previous EKG Chest xray chronic changes without acute pulmonary process Laboratory data: WBC 4.7. Hemoglobin 12.7. Platelet count 232. Sodium 130. Potassium 3.1. BUN 4. Creatinine 0.64. Troponin negative 2. Current home cardiac medications include metoprolol tartrate 50 mg 3 times a day, Effient 10 mg daily, aspirin 81 mg daily, Lipitor 80 mg at night Cardiac catheterization: November 2020 with stenting of the left circumflex and stenting of the proximal and mid right coronary artery Echocardiogram completed revealing ejection fraction 45-50%, moderate aortic regurgitation, and trace to mild mitral regurgitation REVIEW OF SYSTEMS: Thorough review of systems not completed secondary to limited evaluation/examination due to Covid19 PHYSICAL EXAM: Thorough physical exam not completed secondary to limited evaluation/examination due to Covid19 ASSESSMENT: Covid 19 Chest pain, troponin negative x 2 Coronary artery disease with previous stenting Hypertension Hyperlipidemia Nicotine dependence PLAN: The patient is currently chest pain-free and is requesting to be discharged home today. She may be discharged home from a cardiac standpoint and follow up on an outpatient basis with Dr. Styles. Nurse practitioner note has been reviewed by physician. Signing provider agrees with the documented findings, assessment, and plan of care. Past Medical History Past Medical History: Asthma, COPD, Hyperlipidemia, Hypertension, Myocardial Infarction ([place]), Skin Disorder Additional Past Medical History / Comment(s): diverticulosis, nephrolithiasis- stones in both kidneys with L side worse, migraines, skin sensitive to sun exposure. STOMACH ULCER Last Myocardial Infarction Date:: 09/17/14 History of Any Multi-Drug Resistant Organisms: None Reported Past Surgical History: Cholecystectomy, Heart Catheterization With Stent, Hysterectomy, Orthopedic Surgery Additional Past Surgical History / Comment(s): Lithotripsy, R breast 4 tumors removed all benign, Tumor removed left ear, D & C x 4, colonoscopy, egd, kidney stent, lung RLL mass removed , Right arm surgery x3 Past Anesthesia/Blood Transfusion Reactions: Postoperative Nausea & Vomiting (PONV) Additional Past Anesthesia/Blood Transfusion Reaction / Comment(s): headache for 4 days Date of Last Stent Placement:: Past Psychological History: Anxiety, Depression Smoking Status: Current every day smoker Past Alcohol Use History: None Reported Past Drug Use History: None Reported - Past Family History Father Family Medical History: Cancer, Myocardial Infarction ([place]) Additional Family Medical History / Comment(s): Father had throat and lung cancer. He was a smoker. Mother Family Medical History: Coronary Artery Disease (CAD), Hypertension Additional Family Medical History / Comment(s): Mother has a hiatal hernia that affects her breathing. She also has heart problems Medications and Allergies Home Medications Medication Instructions Recorded Confirmed Type Aspirin EC [Ecotrin Low Dose] 81 mg PO DAILY 12/19/14 08/18/21 History Salmeterol Xinafoate [Serevent 1 puff INHALATION RT-Q12H 04/17/18 08/18/21 History Diskus] Umeclidinium [place] [Incruse 1 puff INHALATION RT-DAILY 04/17/18 08/18/21 History Ellipta] ALPRAZolam [Xanax] 0.5 mg PO HS 01/31/20 08/18/21 History Acetaminophen Tab [Tylenol] 1,000 mg PO Q6H PRN 01/31/20 08/18/21 History Albuterol Inhaler [Ventolin Hfa 2 puff INHALATION RT-Q6H PRN 01/31/20 08/18/21 History Inhaler] metFORMIN HCL [Glucophage] 500 mg PO DAILY 11/13/20 08/18/21 History Atorvastatin [Lipitor] 80 mg PO HS #30 tab 11/14/20 08/18/21 Rx Nitroglycerin Sl Tabs [Nitrostat] 0.4 mg SUBLINGUAL Q5M PRN #30 tab 11/14/20 08/18/21 Rx Prasugrel [Effient] 10 mg PO DAILY #30 tab 11/14/20 08/18/21 Rx Fluticasone Propionate [Flovent 2 puff INHALATION RT-BID 08/18/21 08/18/21 History Hfa 110 mcg] Metoprolol Tartrate [Lopressor] 50 mg PO TID-W/MEALS 08/18/21 08/18/21 History Omeprazole [PriLOSEC] 20 mg PO DAILY 08/18/21 08/18/21 History Allergies Allergy/AdvReac Type Severity Reaction Status Date / Time amoxicillin Allergy Rash/Hives Verified 08/18/21 16:33 codeine Allergy Rash/Hives Verified 08/18/21 16:33 sumatriptan [From Imitrex] AdvReac Nausea & Verified 08/18/21 16:33 Vomiting Physical Exam Vitals: Vital Signs Temp Pulse Pulse Resp BP BP Pulse Ox 08/19/21 08:25 97.9 F 92 16 119/79 95 08/19/21 02:00 97.7 F 108 H 15 108/59 94 L 08/19/21 00:09 18 08/18/21 23:45 97.5 F L 84 18 111/61 90 L 08/18/21 23:13 76 18 122/65 94 L 08/18/21 21:42 98.4 F 84 18 122/65 94 L 08/18/21 19:27 97.8 F 100 16 138/79 95 08/18/21 17:25 93 18 138/79 96 08/18/21 14:17 99.1 F 99 20 117/72 95 Intake and Output 08/18/21 08/19/21 08/19/21 22:59 06:59 14:59 Intake Total 131.777 Balance 131.777 Intake: IV 70 Heparin Sod,Pork in 0.45% 70 NaCl 25,000 unit In 0.45 % NaCl 1 250ml.bag @ 12 UNITS/KG/HR 8.6 mls/hr IV .Q24H CM Rx#:[id number] Intake, IV Titration 61.777 Amount Heparin Sod,Pork in 0.45% 61.777 NaCl 25,000 unit In 0.45 % NaCl 1 250ml.bag @ 12 UNITS/KG/HR 8.6 mls/hr IV .Q24H CM Rx#:[id number] Other: # Voids 1 Weight 71.668 kg Results 08/19/21 05:06 08/19/21 05:06 Cardiac Enzymes 08/18/21 08/18/21 08/19/21 Range/Units 14:59 14:59 05:06 AST 79 H (14-36) U/L Troponin I <0.012 <0.012 (0.000-0.034) ng/mL 08/19/21 Range/Units 09:36 AST (14-36) U/L Troponin I <0.012 (0.000-0.034) ng/mL Coagulation 08/18/21 08/18/21 08/19/21 Range/Units 14:59 22:11 05:06 PT 9.6 (9.0-12.0) sec APTT 22.3 82.6 H 61.7 H (22.0-30.0) sec CBC 08/18/21 08/19/21 Range/Units 14:59 05:06 WBC 6.9 4.7 (3.8-10.6) k/uL RBC 4.72 4.11 (3.80-5.40) m/uL Hgb 14.8 12.7 (11.4-16.0) gm/dL Hct 44.9 40.6 (34.0-46.0) % Plt Count 257 232 (150-450) k/uL Comprehensive Metabolic Panel 08/18/21 08/19/21 Range/Units 14:59 05:06 Sodium 138 140 (137-145) mmol/L Potassium 3.7 3.1 L (3.5-5.1) mmol/L Chloride 109 H 113 H (98-107) mmol/L Carbon Dioxide 20 L 20 L (22-30) mmol/L BUN 3 L 4 L (7-17) mg/dL Creatinine 0.70 0.64 (0.52-1.04) mg/dL Glucose 111 H 99 (74-99) mg/dL Calcium 8.8 8.1 L (8.4-10.2) mg/dL AST 79 H (14-36) U/L ALT 30 (4-34) U/L Alkaline Phosphatase 123 (38-126) U/L Total Protein 6.7 (6.3-8.2) g/dL Albumin 3.5 (3.5-5.0) g/dL Current Medications Generic Name Dose Route Start Last Admin Trade Name Freq PRN Reason Stop Dose Admin Acetaminophen 650 mg 08/18/21 16:09 08/19/21 04:17 Acetaminophen Tab 325 Mg Tab PO 650 mg Q6HR PRN Administration Mild Pain or Fever > 100.5 Alprazolam 0.5 mg 08/18/21 21:00 08/18/21 21:02 Alprazolam 0.5 Mg Tab PO 0.5 mg HS CM Administration Aspirin 81 mg 08/19/21 09:00 08/19/21 09:18 Aspirin 81 Mg PO 81 mg DAILY CM Administration Atorvastatin Calcium 80 mg 08/18/21 21:00 08/18/21 21:02 Atorvastatin 80 Mg Tab PO 80 mg HS CM Administration Fluticasone Propionate 2 puff 08/18/21 20:00 08/19/21 09:55 Fluticasone 110 Mcg Inhaler INHALATION Not Given RT-BID CM Hydromorphone HCl 0.5 mg 08/18/21 16:09 08/18/21 17:27 Hydromorphone 0.5 Mg/0.5 Ml Syringe IVP 0.5 mg Q3HR PRN Administration Moderate Pain Sodium Chloride 1,000 mls @ 20 mls/hr 08/18/21 16:15 08/18/21 17:30 Saline 0.9% IV 20 mls/hr .Q24H CM Administration Ibuprofen 400 mg 08/18/21 17:18 08/19/21 07:45 Ibuprofen 400 Mg Tab PO 400 mg Q6HR PRN Administration Pain Ipratropium [place] 1 mg 08/19/21 08:00 08/19/21 09:55 Ipratropium 0.5 Mg/2.5 Ml Nebu INHALATION Not Given RT-QID CM Metoprolol Tartrate 50 mg 08/19/21 07:30 Metoprolol Tartrate 50 Mg Tab PO TID-W/MEALS CM Naloxone HCl 0.2 mg 08/18/21 16:09 Naloxone 0.4 Mg/Ml 1 Ml Vial IV Q2M PRN Opioid Reversal Nicotine 1 patch 08/18/21 23:45 08/19/21 09:18 Nicotine 14mg/24hr Patch TRANSDERM 1 patch DAILY CM Administration Nitroglycerin 0.4 mg 08/18/21 17:59 Nitroglycerin Sl Tabs 0.4 Mg Tab SUBLINGUAL Q5M PRN Chest Pain Ondansetron HCl 4 mg 08/18/21 16:09 Ondansetron 4 Mg/2 Ml Vial IVP Q8HR PRN Nausea And Vomiting Pantoprazole Sodium 40 mg 08/19/21 07:30 08/19/21 09:24 Pantoprazole 40 Mg Tablet PO 40 mg DAILY@0730 [facility] Administration Prasugrel 10 mg 08/19/21 09:00 Prasugrel 10 Mg Tab PO DAILY [facility] Salmeterol Xinafoate 1 puff 08/18/21 20:00 08/19/21 09:55 Salmeterol 50 Mcg Inhaler INHALATION Not Given RT-Q12H [facility] Intake and Output 08/18/21 08/19/21 08/19/21 22:59 06:59 14:59 Intake Total 131.777 Balance 131.777 Intake: IV 70 Heparin Sod,Pork in 0.45% 70 NaCl 25,000 unit In 0.45 % NaCl 1 250ml.bag @ 12 UNITS/KG/HR 8.6 mls/hr IV .Q24H [facility] Rx#:[id number] Intake, IV Titration 61.777 Amount Heparin Sod,Pork in 0.45% 61.777 NaCl 25,000 unit In 0.45 % NaCl 1 250ml.bag @ 12 UNITS/KG/HR 8.6 mls/hr IV .Q24H [facility] Rx#:[id number] Other: # Voids 1 Weight 71.668 kg 08/19/21 05:06 08/19/21 05:06
--- NOTE | 2021-08-19 15:17 | DS ---
DISCHARGE SUMMARY DATE OF SERVICE: 08/19/2021 FINAL DIAGNOSIS: 1. Chest pain, myocardial infarction ruled out. 2. Acute COVID-19 infection. 3. Headache, possible migraine. 4. Right-sided headaches. 5. History of asthma, chronic obstructive pulmonary disease. 6. Hypertension. 7. Hyperlipidemia. 8. History of myocardial infarction. 9. History of diverticulosis. 10.History of nephrolithiasis. 11.History of cholecystectomy. 12.History of coronary artery disease/stent. 13.History of anxiety/depression. 14.History of nicotine dependence, continued ongoing. 15.FULL CODE. DISCHARGE DISPOSITION: The patient will be discharged in stable condition with guarded prognosis. HISTORY OF PRESENT ILLNESS: This 60-year-old woman with a past medical history of multiple medical problems, admitted with chest pain and as well as acute Covid 19 infection. Myocardial infarction ruled out. Cardiology recommended outpatient followup. Chest CTA, which was personally reviewed by me showed a 2.8 right lower lobe cavitary lesion and mild mediastinal . Recommended outpatient followup. Otherwise, the patient was seen by Dr. River. EXAM: Vitals stable. Cardiovascular: S1, S2. Abdomen soft. Nervous system: No focal deficits. Outpatient Cardiology followup and cardiac stress test also recommend. Discharge diet is cardiac diet. Follow up with Dr. Kin Gonzalez in 1-2 days. MEDICATIONS: 1. Ecotrin 81 mg daily. 2. Fluticasone. 3. Metformin 500 mg p.o. daily. 4. Incruse Ellipta 1 puff daily. 5. Lopressor 50 mg p.o. t.i.d. 6. Prilosec 20 mg daily. 7. Salmeterol 1 puff b.i.d. 8. Tylenol 1000 mg q.6 p.r.n. 9. Ventolin p.r.n. 10.Xanax 0.5 q.h.s. 11.Effient 10 mg p.o. daily. 12.Habitrol 14 daily. 13.Lipitor 80 mg q.h.s. 14.Motrin p.r.n. 15.Nitrostat p.r.n. Follow up with Dr. Wu in 2 weeks. 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 MMODL / IJN: [id number] / [facility]
== END 2021-08-19 12:21 | disposition home or self-care (01) ==
LOC: EC 14:01 → 1SOBS 16:00 → 3NCARDOBS 22:40
PROVIDERS: ADMIT Internal Medicine; ATTEND Internal Medicine
DX: R07.89 Other chest pain (principal); R68.84 Jaw pain; U07.1 COVID-19; G43.909 Migraine, unspecified, not intractable, without status migrainosus; J44.9 Chronic obstructive pulmonary disease, unspecified; I10 Essential (primary) hypertension; E78.5 Hyperlipidemia, unspecified; I25.2 Old myocardial infarction; K57.90 Diverticulosis of intestine, part unspecified, without perforation or abscess without bleeding; I25.10 Atherosclerotic heart disease of native coronary artery without angina pectoris; F32.A Depression, unspecified; F41.9 Anxiety disorder, unspecified; L98.9 Disorder of the skin and subcutaneous tissue, unspecified; F17.200 Nicotine dependence, unspecified, uncomplicated; E11.65 Type 2 diabetes mellitus with hyperglycemia; R74.01 Elevation of levels of liver transaminase levels; I25.5 Ischemic cardiomyopathy; I08.0 Rheumatic disorders of both mitral and aortic valves; Z95.5 Presence of coronary angioplasty implant and graft; Z87.442 Personal history of urinary calculi; Z87.11 Personal history of peptic ulcer disease; Z90.49 Acquired absence of other specified parts of digestive tract; Z90.710 Acquired absence of both cervix and uterus; Z79.899 Other long term (current) drug therapy; Z79.84 Long term (current) use of oral hypoglycemic drugs; Z79.82 Long term (current) use of aspirin; Z79.02 Long term (current) use of antithrombotics/antiplatelets; Z79.51 Long term (current) use of inhaled steroids; Z88.0 Allergy status to penicillin; Z88.5 Allergy status to narcotic agent; Z88.8 Allergy status to other drugs, medicaments and biological substances; Z80.1 Family history of malignant neoplasm of trachea, bronchus and lung; Z82.49 Family history of ischemic heart disease and other diseases of the circulatory system; Z83.79 Family history of other diseases of the digestive system
CPT/HCPCS: 96366 ×2; 96376; 96365; 96375; 99285; 36415; 93005; 93306; 85379; 80053; 80048; 83735; 84484 ×2; 85025 ×2; 85610; 85730 ×2; 87635; 71046; 71275; G0378 ×3; S4990; J2405; J1644 ×2; J1170; Q9967

== ENCOUNTER 2021-09-27 14:07 | Observation (INO) | payer MEDICARE, OTHER ==
[2021-09-27] MEDS ORDERED: NITROGLYCERIN SL TABS 0.4 MG TAB SUBLINGUAL STA (14:35)
[2021-09-27] MEDS ORDERED: SODIUM CHLORIDE 0.9% 1,000 ML IV STA (14:35)
--- NOTE | 2021-09-27 15:02 | ED ---
Chest Pain HPI - General Chief Complaint: Chest Pain Stated Complaint: Chest pain Time Seen by Provider: 09/27/21 14:13 Source: patient, RN notes reviewed Mode of arrival: wheelchair Limitations: no limitations - History of Present Illness Initial Comments: 61-year-old female history of MT in the past with stents history of asthma COPD who states she had the onset of chest pain this morning which went away but then came again at and she was eating lunch. She states the pain was 6-7/10 in severity she states is still at level right now she did take a total of 325 mg of aspirin today total the pain is neither reproducible or increase with exertion she states this a dull achy-type pain. Does not radiate. It feels somewhat different than previous pain she's had. No other current complaints or modifying factors MD Complaint: chest pain - Related Data Home Medications Medication Instructions Recorded Confirmed Aspirin EC [Ecotrin Low Dose] 81 mg PO DAILY 12/19/14 08/18/21 Salmeterol Xinafoate [Serevent 1 puff INHALATION RT-Q12H 04/17/18 08/18/21 Diskus] Umeclidinium [place] [Incruse 1 puff INHALATION RT-DAILY 04/17/18 08/18/21 Ellipta] ALPRAZolam [Xanax] 0.5 mg PO HS 01/31/20 08/18/21 Acetaminophen Tab [Tylenol] 1,000 mg PO Q6H PRN 01/31/20 08/18/21 Albuterol Inhaler [Ventolin Hfa 2 puff INHALATION RT-Q6H PRN 01/31/20 08/18/21 Inhaler] metFORMIN HCL [Glucophage] 500 mg PO DAILY 11/13/20 08/18/21 Fluticasone Propionate [Flovent 2 puff INHALATION RT-BID 08/18/21 08/18/21 Hfa 110 mcg] Metoprolol Tartrate [Lopressor] 50 mg PO TID-W/MEALS 08/18/21 08/18/21 Omeprazole [PriLOSEC] 20 mg PO DAILY 08/18/21 08/18/21 Previous Rx's Medication Instructions Recorded Atorvastatin [Lipitor] 80 mg PO HS #30 tab 11/14/20 Nitroglycerin Sl Tabs [Nitrostat] 0.4 mg SUBLINGUAL Q5M PRN #30 tab 11/14/20 Prasugrel [Effient] 10 mg PO DAILY #30 tab 11/14/20 Ibuprofen [Motrin] 400 mg PO Q6HR PRN tab 08/19/21 Nicotine 14Mg/24Hr Patch [Habitrol] 1 patch TRANSDERM DAILY #20 patch 08/19/21 Allergies Allergy/AdvReac Type Severity Reaction Status Date / Time amoxicillin Allergy Rash/Hives Verified 09/27/21 14:12 codeine Allergy Rash/Hives Verified 09/27/21 14:12 sumatriptan [From Imitrex] AdvReac Nausea & Verified 09/27/21 14:12 Vomiting Review of Systems ROS Statement: Those systems with pertinent positive or pertinent negative responses have been documented in the HPI. ROS Other: All systems not noted in ROS Statement are negative. EKG Findings - EKG Results: EKG: interpreted by JARED, sinus rhythm (Sinus rhythm of 90 MO interval 160 QRS duration 93 QT since QTC 349/397 evidence of incomplete right bundle-branch block nonspecific ST T configuration) Past Medical History Past Medical History: Asthma, COPD, Hyperlipidemia, Hypertension, Myocardial Infarction ([place]), Skin Disorder Additional Past Medical History / Comment(s): diverticulosis, nephrolithiasis- stones in both kidneys with L side worse, migraines, skin sensitive to sun exposure. STOMACH ULCER Last Myocardial Infarction Date:: 09/17/14 History of Any Multi-Drug Resistant Organisms: None Reported Past Surgical History: Cholecystectomy, Heart Catheterization With Stent, Hysterectomy, Orthopedic Surgery Additional Past Surgical History / Comment(s): Lithotripsy, R breast 4 tumors removed all benign, Tumor removed left ear, D & C x 4, colonoscopy, egd, kidney stent, lung RLL mass removed , Right arm surgery x3 Past Anesthesia/Blood Transfusion Reactions: Postoperative Nausea & Vomiting (PONV) Additional Past Anesthesia/Blood Transfusion Reaction / Comment(s): headache for 4 days Date of Last Stent Placement:: Past Psychological History: Anxiety, Depression Smoking Status: Current every day smoker Past Alcohol Use History: None Reported Past Drug Use History: None Reported - Past Family History Father Family Medical History: Cancer, Myocardial Infarction ([place]) Additional Family Medical History / Comment(s): Father had throat and lung cancer. He was a smoker. Mother Family Medical History: Coronary Artery Disease (CAD), Hypertension Additional Family Medical History / Comment(s): Mother has a hiatal hernia that affects her breathing. She also has heart problems General Exam - General Exam Comments Initial Comments: This is a well-developed well-nourished awake alert oriented 3 female Limitations: no limitations General appearance: alert, anxious Head exam: Present: atraumatic, normocephalic, normal inspection Eye exam: Present: normal appearance, PERRL, EOMI. Absent: scleral icterus, conjunctival injection, periorbital swelling ENT exam: Present: normal exam, mucous membranes moist Neck exam: Present: normal inspection, full ROM, other (No stridor JVD or bruits). Absent: tenderness, meningismus, lymphadenopathy Respiratory exam: Present: normal lung sounds bilaterally. Absent: respiratory distress, wheezes, rales, rhonchi, stridor, chest wall tenderness Cardiovascular Exam: Present: regular rate, normal rhythm, normal heart sounds. Absent: systolic murmur, diastolic murmur, rubs, gallop, clicks GI/Abdominal exam: Present: soft, normal bowel sounds. Absent: distended, tenderness, guarding, rebound, rigid, bruit, pulsatile mass Extremities exam: Present: normal inspection, full ROM, normal capillary refill. Absent: tenderness, pedal edema, joint swelling, calf tenderness Back exam: Present: normal inspection Neurological exam: Present: alert, oriented X3, CN II-XII intact Psychiatric exam: Present: normal affect, normal mood Skin exam: Present: warm, dry, intact, normal color. Absent: rash Course Vital Signs 09/27/21 09/27/21 14:09 16:00 Temperature 96.9 F L Pulse Rate 107 H 72 Respiratory 22 18 Rate Blood Pressure 136/89 144/89 O2 Sat by Pulse 97 97 Oximetry - Reevaluation(s) Reevaluation #1: 09/27/21 15:46 The patient's chest pain yesterday sold (none does have a headache this is after nitroglycerin was given. Chest Pain MDM - MDM Imaging reviewed clearing from previous x-ray patient is pain-free after nitroglycerin. Patient will be admitted I did discuss the case with Dr. Barba's group. Patient is a smoker she will get a nicotine patch. She does have elevated lipase she has a history of this in the past. Critical Care Time Critical Care Time: Yes Total Critical Care Time: 31 Critical Care Time: Critical care time includes initial presentation with history physical labs x- rays multiple reevaluation the patient discussed with patient family members on several occasions admission orders documentation the above review of old chart ing was available Disposition Clinical Impression: Nicotine dependence, Chest pain, Angina at rest, Elevated lipase Disposition: ADMITTED IP TO THIS [facility] Condition: Fair Referrals: Kin Gonzalez DO [Primary Care Provider] - 1-2 days
[2021-09-27 15:32] LABS: Basophils # (A) 0.1 k/uL (0-0.2); Basophils % (A) 1 %; Eosinophils # (A) 0.6 k/uL (0-0.7); Eosinophils % (A) 4 %; HCT 43.7 % (34.0-46.0); HGB 14.3 gm/dL (11.4-16.0); Lymphocytes # (A) 1.4 k/uL (1.0-4.8); Lymphocytes % (A) 10 %; MCH 32.2 pg (25.0-35.0); MCHC 32.7 g/dL (31.0-37.0); MCV 98.4 fL (80.0-100.0); Mean Platelet Volume 7.8; Monocytes # (A) 0.4 k/uL (0-1.0); Monocytes % (A) 3 %; Neutrophils # (A) 11.3 k/uL (1.3-7.7); Neutrophils % (A) 82 %; Platelet Count 354 k/uL (150-450); RBC 4.44 m/uL (3.80-5.40); RDW 13.3 % (11.5-15.5); WBC 13.7 k/uL (3.8-10.6)
--- NOTE | 2021-09-27 15:33 | XR ---
EXAMINATION TYPE: XR chest 2V DATE OF EXAM: 09/27/2021 COMPARISON: 08/18/2021 HISTORY: Chest pain TECHNIQUE: FINDINGS: There is some linear density right midlung field. Heart size is normal. There is no heart f ailure. There are no hilar masses. Bony thorax is intact. IMPRESSION: Subsegmental atelectasis. Normal heart. There is changing pattern of atelectasis compared to old exam.
[2021-09-27] MEDS ORDERED: ACETAMINOPHEN TAB 500 MG TAB PO STA (15:45)
[2021-09-27 15:48] LABS: ALT 20 U/L (4-34); AST 45 U/L (14-36); African American GFR (CKD) >90 (>60 ml/min/1.73 sqM); Albumin 3.2 g/dL (3.5-5.0); Alkaline Phosphatase 78 U/L (38-126); Anion Gap 8 mmol/L; Blood Urea Nitrogen 8 mg/dL (7-17); Calcium 8.7 mg/dL (8.4-10.2); Carbon Dioxide 18 mmol/L (22-30); Chloride 112 mmol/L (98-107); Glucose 100 mg/dL (74-99); Lipase 350 U/L (23-300); Magnesium 1.7 mg/dL (1.6-2.3); Non-African American GFR(CKD) >90 (>60 ml/min/1.73 sqM); Sodium 138 mmol/L (137-145); Total Bilirubin 0.7 mg/dL (0.2-1.3); Total Protein 6.2 g/dL (6.3-8.2)
[2021-09-27 16:01] LABS: Potassium 4.4 mmol/L (3.5-5.1)
[2021-09-27 16:08] LABS: INR 0.9 (<1.2); Prothrombin Time 10.1 sec (9.0-12.0)
[2021-09-27 16:13] LABS: Partial Thromboplastin Time 19.9 sec (22.0-30.0)
[2021-09-27] MEDS ORDERED: NICOTINE 14MG/24HR PATCH TRANSDERM STA (17:10)
[2021-09-27] MEDS ORDERED: NITROGLYCERIN SL TABS 0.4 MG TAB SUBLINGUAL PRN (17:14)
[2021-09-27] MEDS ORDERED: HEPARIN SODIUM 1,000 UN/ML (10ML VL) IV ONE (17:14)
[2021-09-27] MEDS ORDERED: HEPARIN SOD,PORK IN 0.45% NACL 25,000 UNIT in 0.45% NACL 1 250ML.BAG IV SCH (17:15)
[2021-09-27] MEDS ORDERED: ACETAMINOPHEN TAB 500 MG TAB PO PRN (17:18)
[2021-09-27] MEDS ORDERED: IBUPROFEN 400 MG TAB PO PRN (17:18)
[2021-09-27] MEDS ORDERED: ALBUTEROL HFA INHALER INHALATION PRN (17:18)
[2021-09-27] MEDS ORDERED: METOPROLOL TARTRATE 50 MG TAB PO SCH (17:30)
[2021-09-27 20:14] LABS: Glucose,Whole Blood 104 mg/dL (75-99)
[2021-09-27] MEDS: FLUTICASONE 110 MCG INHALER INHALATION SCH (20:18)
[2021-09-27] MEDS: FORMOTEROL FUMARATE 20 MCG/2 ML NEBU INHALATION SCH (20:18)
[2021-09-27] MEDS: NITROGLYCERIN OINT 1 INCH/GM PACKET TOPICAL SCH (20:20)
[2021-09-27] MEDS ORDERED: ATORVASTATIN 80 MG TAB PO SCH (21:00)
[2021-09-27] MEDS ORDERED: ALPRAZolam 0.5 MG TAB PO SCH (21:00)
--- NOTE | 2021-09-27 21:45 | P.HPIM ---
History of Present Illness H&P Date: 09/27/21 Chief Complaint: Chest pain 61-year-old female history of OK in the past with stents history of asthma COPD who states she had the onset of chest pain this morning which went away but then came again at and she was eating lunch. She states the pain was 6-7/10 in severity she states is still at level right now she did take a total of 325 mg of aspirin today total the pain is neither reproducible or increase with exertion she states this a dull achy-type pain. Does not radiate. It feels somewhat different than previous pain she's had. EKG: interpreted by JARED, sinus rhythm (Sinus rhythm of 90 FL interval 160 QRS duration 93 QT since QTC 349/397 evidence of incomplete right bundle-branch block nonspecific ST T configuration) Lab work reveals elevated WBC of 13.7, hemoglobin 14.3 and platelet count of 354, sodium 138, potassium 4.4, BUN/creatinine of 8/0.63; mild elevation of AST at 45 and lipase elevated at 350; troponin of 0.012 Review of Systems REVIEW OF SYSTEMS: CONSTITUTIONAL: No fever, no malaise, no fatigue. HEENT: No recent visual problems or hearing problems. Denied any sore throat. CARDIOVASCULAR: No chest pain, orthopnea, PND, no palpitations, no syncope. PULMONARY: No shortness of breath, no cough, no hemoptysis. GASTROINTESTINAL: No diarrhea, no nausea, no vomiting, no abdominal pain. NEUROLOGICAL: No headaches, no weakness, no numbness. HEMATOLOGICAL: Denies any bleeding or petechiae. GENITOURINARY: Denies any burning micturition, frequency, or urgency. MUSCULOSKELETAL/RHEUMATOLOGICAL: Denies any joint pain, swelling, or any muscle pain. ENDOCRINE: Denies any polyuria or polydipsia. The rest of the 14-point review of systems is negative. Past Medical History Past Medical History: Asthma, COPD, Hyperlipidemia, Hypertension, Myocardial Infarction ([place]), Skin Disorder Additional Past Medical History / Comment(s): diverticulosis, nephrolithiasis- stones in both kidneys with L side worse, migraines, skin sensitive to sun exposure. STOMACH ULCER Last Myocardial Infarction Date:: 09/17/14 History of Any Multi-Drug Resistant Organisms: None Reported Past Surgical History: Cholecystectomy, Heart Catheterization With Stent, Hysterectomy, Orthopedic Surgery Additional Past Surgical History / Comment(s): Lithotripsy, R breast 4 tumors removed all benign, Tumor removed left ear, D & C x 4, colonoscopy, egd, kidney stent, lung RLL mass removed , Right arm surgery x3 Past Anesthesia/Blood Transfusion Reactions: Postoperative Nausea & Vomiting (P ONV) Additional Past Anesthesia/Blood Transfusion Reaction / Comment(s): headache for 4 days Date of Last Stent Placement:: Past Psychological History: Anxiety, Depression Smoking Status: Current every day smoker Past Alcohol Use History: None Reported Past Drug Use History: None Reported - Past Family History Father Family Medical History: Cancer, Myocardial Infarction ([place]) Additional Family Medical History / Comment(s): Father had throat and lung cancer. He was a smoker. Mother Family Medical History: Coronary Artery Disease (CAD), Hypertension Additional Family Medical History / Comment(s): Mother has a hiatal hernia that affects her breathing. She also has heart problems Medications and Allergies Home Medications Medication Instructions Recorded Confirmed Type Aspirin EC [Ecotrin Low Dose] 81 mg PO DAILY 12/19/14 09/27/21 History Salmeterol Xinafoate [Serevent 1 puff INHALATION RT-Q12H 04/17/18 09/27/21 History Diskus] Umeclidinium [place] [Incruse 1 puff INHALATION RT-DAILY 04/17/18 09/27/21 History Ellipta] ALPRAZolam [Xanax] 0.5 mg PO BID PRN 01/31/20 09/27/21 History Acetaminophen Tab [Tylenol] 1,000 mg PO Q6H PRN 01/31/20 09/27/21 History Albuterol Inhaler [Ventolin Hfa 2 puff INHALATION RT-Q6H PRN 01/31/20 09/27/21 History Inhaler] metFORMIN HCL [Glucophage] 500 mg PO DAILY 11/13/20 09/27/21 History Atorvastatin [Lipitor] 80 mg PO HS #30 tab 11/14/20 09/27/21 Rx Nitroglycerin Sl Tabs [Nitrostat] 0.4 mg SUBLINGUAL Q5M PRN #30 tab 11/14/20 09/27/21 Rx Prasugrel [Effient] 10 mg PO DAILY #30 tab 11/14/20 09/27/21 Rx Metoprolol Tartrate [Lopressor] 50 mg PO TID-W/MEALS 08/18/21 09/27/21 History Allergies Allergy/AdvReac Type Severity Reaction Status Date / Time amoxicillin Allergy Rash/Hives Verified 09/27/21 17:12 codeine Allergy Rash/Hives Verified 09/27/21 17:12 sumatriptan [From Imitrex] AdvReac Nausea & Verified 09/27/21 17:12 Vomiting Physical Exam Vitals: Vital Signs Temp Pulse Resp BP Pulse Ox 09/27/21 16:00 72 18 144/89 97 09/27/21 14:09 96.9 F L 107 H 22 136/89 97 Intake and Output 09/27/21 09/27/21 09/27/21 06:59 14:59 22:59 Other: Weight 67.132 kg - Constitutional General appearance: Present: average body habitus, cooperative, no acute distress - EENT Eyes: Present: anicteric sclerae, EOMI, PERRLA, normal appearance ENT: Present: hearing grossly normal, normal oropharynx Ears: bilateral: normal - Neck Neck: Present: normal ROM. Absent: lymphadenopathy, rigidity, thyromegaly Carotids: negative: bruit present Thyroid: bilateral: normal size, negative: enlarged, nodule - Respiratory Respiratory: bilateral: CTA, negative: rales, rhonchi, wheezing - Cardiovascular Rhythm: regular Heart sounds: normal: S1, S2 Abnormal Heart Sounds: Absent: systolic murmur, diastolic murmur - Gastrointestinal General gastrointestinal: Present: normal bowel sounds, soft. Absent: distended, organomegaly, tenderness - Genitourinary Genitourinary Comment(s): deferred - Integumentary Integumentary: Present: normal turgor. Absent: jaundiced, rash, ulcer - Neurologic Neurologic: Present: CNII-XII intact. Absent: focal deficits - Musculoskeletal Musculoskeletal: Present: gait normal, strength equal bilaterally - Psychiatric Psychiatric: Present: A&O x's 3, appropriate affect, intact judgment & insight Results CBC & Chem 7: 09/27/21 14:57 09/27/21 14:57 Labs: Abnormal Lab Results - Last 24 Hours (Table) 09/27/21 09/27/21 09/27/21 Range/Units 14:57 14:57 14:57 WBC 13.7 H (3.8-10.6) k/uL Neutrophils # 11.3 H (1.3-7.7) k/uL APTT 19.9 L (22.0-30.0) sec Chloride 112 H (98-107) mmol/L Carbon Dioxide 18 L (22-30) mmol/L Glucose 100 H (74-99) mg/dL AST 45 H (14-36) U/L Total Protein 6.2 L (6.3-8.2) g/dL Albumin 3.2 L (3.5-5.0) g/dL Lipase 350 H (23-300) U/L Assessment and Plan Assessment: 1. Chest pain rule out acute coronary syndrome - We will trend troponin and monitor EKG; we will plan for 2-D echo - Patient will be started on aspirin, statins and beta blockers - We'll order lipid profile 2. Elevated lipase/questionable acute pancreatitis; patient is currently asymptomatic; we will continue to monitor; repeat lipase level; start patient on Lipitor 40 mg IV daily 3. Mild transaminitis; AST elevated at 45; we will monitor liver enzymes closely with plans to obtain hepatic ultrasound and hepatitis profile if liver enzymes continue to trend up 4. Hypertension; we will continue with metoprolol 50 mg 3 times a day 5. COPD; not in exacerbation; continue with home inhaler therapy 6. Diabetes mellitus type 2; patient takes metformin 500 mg daily; we will hold off on metformin and monitor Accu-Cheks every before meals and at bedtime with insulin sliding 7. Hyperlipidemia; Lipitor 80 mg by mouth daily at bedtime DVT prophylaxis; SCDs/ Effient CODE STATUS; full code
[2021-09-28] MEDS: NITROGLYCERIN OINT 1 INCH/GM PACKET TOPICAL SCH ×2 (01:04→05:25)
[2021-09-28] MEDS ORDERED: HEPARIN SODIUM 1,000 UN/ML (10ML VL) IV PRN (02:21)
[2021-09-28 07:12] LABS: Glucose,Whole Blood 125 mg/dL (75-99)
[2021-09-28] MEDS: FLUTICASONE 110 MCG INHALER INHALATION SCH (07:24)
[2021-09-28] MEDS: FORMOTEROL FUMARATE 20 MCG/2 ML NEBU INHALATION SCH (07:25)
[2021-09-28 07:27] VITALS: BP 106/65; PULSE 99; RESP 17; TEMP 97.9
[2021-09-28] MEDS ORDERED: PANTOPRAZOLE 40 MG TABLET PO SCH (07:30)
[2021-09-28] MEDS ORDERED: IPRATROPIUM 0.5 MG/2.5 ML NEBU INHALATION SCH (08:00)
[2021-09-28] MEDS ORDERED: ASPIRIN 325 MG TAB PO SCH (09:00)
[2021-09-28] MEDS ORDERED: NICOTINE 14MG/24HR PATCH TRANSDERM SCH (09:00)
[2021-09-28] MEDS ORDERED: PRASUGREL 10 MG TAB PO SCH (09:00)
--- NOTE | 2021-09-28 10:09 | P.CRDCN ---
History of Present Illness Consult date: 09/28/21 Consult reason: chest pain History of present illness: HISTORY OF PRESENT ILLNESS: This is a 61-year-old female with a past medical history significant for coronary artery disease with previous stenting of the RCA and circumflex, mild ischemic cardiomyopathy, hypertension, hyperlipidemia, and nicotine dependence, Covid positive in July 2021. Patient follows in the office with Dr. Styles. We have been asked to see the patient in consultation for chest pain. Patient presented to the hospital after having an episode of chest pain at home. She took Rolaids and the pain went away but she did come in the hospital for further evaluation. This morning, the patient denies any chest pain and is requesting to be discharged home and subsequently signed out AMA. DIAGNOSTICS: EKG reveals sinus mechanism Chest xray chronic changes without acute pulmonary process Laboratory data: WBC 13.7. Hemoglobin 14.3. Platelet count 354. Sodium 138. Potassium 4.4. BUN 8. Creatinine 0.63. Troponin negative 3 draws. Current home cardiac medications include metoprolol tartrate 50 mg 3 times a day, Effient 10 mg daily, aspirin 81 mg daily, Lipitor 80 mg at night Cardiac catheterization: November 2020 with stenting of the left circumflex and st enting of the proximal and mid right coronary artery Echocardiogram completed revealing ejection fraction 45-50%, moderate aortic regurgitation, and trace to mild mitral regurgitation REVIEW OF SYSTEMS: Constitutional: No fever, no chills, no night sweats. EENT: No headache. No dizziness. Lungs: No shortness of breath, no cough, no sputum production. No wheezing. Cardiovascular: No chest pain, no lower extremity edema. No palpitations. No paroxysmal nocturnal dyspnea. No orthopnea. No lightheadedness or dizziness. No syncopal episodes. Abdominal: No abdominal pain. No nausea, vomiting. No bloody or tarry stools. Integumentary: No wounds, No rash Neurologic: No aphasia. No facial droop. No change in mentation. No head injury. No headache. No paralysis. No paresthesia. Psychiatric: No depression. Noted anxiety. No mood swings. PHYSICAL EXAM: Vital signs: Afebrile, heart rate in the 80s and 90s, blood pressure 106/65, pulse ox 96% on room air. Gen: This is a 61-year-old female. She is sitting up in bed and appears to be anxious. She is requesting to go home. HEENT: Head is atraumatic, normocephalic. Pupils equal, round. Sclerae is anicteric. NECK: Supple. No JVD. LUNGS: Clear to auscultation. No wheezes or rhonchi. No intercostal retractions. HEART: Regular rate and rhythm. No murmur. ABDOMEN: Soft. Bowel sounds are present. No masses. No tenderness. EXTREMITIES: No pedal edema. No calf tenderness. NEUROLOGICAL: Patient is awake, alert and oriented x3. Cranial nerves 2 through 12 are grossly intact. ASSESSMENT: Chest pain, troponin negative x 2 Coronary artery disease with previous stenting Hypertension Hyperlipidemia Nicotine dependence PLAN: The patient is currently chest pain-free and is requesting to be discharged home today. She may follow up on an outpatient basis with Dr. Styles. Nurse practitioner note has been reviewed by physician. Signing provider agrees with the documented findings, assessment, and plan of care. Past Medical History Past Medical History: Asthma, COPD, Hyperlipidemia, Hypertension, Myocardial Infarction ([place]), Skin Disorder Additional Past Medical History / Comment(s): diverticulosis, nephrolithiasis- stones in both kidneys with L side worse, migraines, skin sensitive to sun exposure. STOMACH ULCER Last Myocardial Infarction Date:: 09/17/14 History of Any Multi-Drug Resistant Organisms: None Reported Past Surgical History: Cholecystectomy, Heart Catheterization With Stent, Hysterectomy, Orthopedic Surgery Additional Past Surgical History / Comment(s): Lithotripsy, R breast 4 tumors removed all benign, Tumor removed left ear, D & C x 4, colonoscopy, egd, kidney stent, lung RLL mass removed , Right arm surgery x3 Past Anesthesia/Blood Transfusion Reactions: Postoperative Nausea & Vomiting (PONV) Additional Past Anesthesia/Blood Transfusion Reaction / Comment(s): headache for 4 days Date of Last Stent Placement:: Past Psychological History: Anxiety, Depression Smoking Status: Current every day smoker Past Alcohol Use History: None Reported Past Drug Use History: None Reported - Past Family History Father Family Medical History: Cancer, Myocardial Infarction ([place]) Additional Family Medical History / Comment(s): Father had throat and lung cancer. He was a smoker. Mother Family Medical History: Coronary Artery Disease (CAD), Hypertension Additional Family Medical History / Comment(s): Mother has a hiatal hernia that affects her breathing. She also has heart problems Medications and Allergies Home Medications Medication Instructions Recorded Confirmed Type Aspirin EC [Ecotrin Low Dose] 81 mg PO DAILY 12/19/14 09/27/21 History Salmeterol Xinafoate [Serevent 1 puff INHALATION RT-Q12H 04/17/18 09/27/21 History Diskus] Umeclidinium [place] [Incruse 1 puff INHALATION RT-DAILY 04/17/18 09/27/21 History Ellipta] ALPRAZolam [Xanax] 0.5 mg PO BID PRN 01/31/20 09/27/21 History Acetaminophen Tab [Tylenol] 1,000 mg PO Q6H PRN 01/31/20 09/27/21 History Albuterol Inhaler [Ventolin Hfa 2 puff INHALATION RT-Q6H PRN 01/31/20 09/27/21 History Inhaler] metFORMIN HCL [Glucophage] 500 mg PO DAILY 11/13/20 09/27/21 History Atorvastatin [Lipitor] 80 mg PO HS #30 tab 11/14/20 09/27/21 Rx Nitroglycerin Sl Tabs [Nitrostat] 0.4 mg SUBLINGUAL Q5M PRN #30 tab 11/14/20 09/27/21 Rx Prasugrel [Effient] 10 mg PO DAILY #30 tab 11/14/20 09/27/21 Rx Metoprolol Tartrate [Lopressor] 50 mg PO TID-W/MEALS 08/18/21 09/27/21 History Allergies Allergy/AdvReac Type Severity Reaction Status Date / Time amoxicillin Allergy Rash/Hives Verified 09/27/21 17:12 codeine Allergy Rash/Hives Verified 09/27/21 17:12 sumatriptan [From Imitrex] AdvReac Nausea & Verified 09/27/21 17:12 Vomiting Physical Exam Vitals: Vital Signs Temp Pulse Pulse Resp BP BP Pulse Ox 09/28/21 01:55 98.5 F 81 18 119/68 94 L 09/27/21 20:08 97.7 F 80 18 120/73 96 09/27/21 19:28 90 18 144/89 97 09/27/21 16:00 72 18 144/89 97 09/27/21 14:09 96.9 F L 107 H 22 136/89 97 Intake and Output 09/27/21 09/28/21 09/28/21 22:59 06:59 14:59 Intake Total 64.179 Balance 64.179 Intake: Intake, IV Titration 64.179 Amount Heparin Sod,Pork in 0.45% 64.179 NaCl 25,000 unit In 0.45 % NaCl 1 250ml.bag @ 12 UNITS/KG/HR 8.056 mls/hr IV .Q24H [facility] Rx#: [id number] Other: # Voids 1 2 Weight 67.132 kg Results 09/27/21 14:57 09/27/21 14:57 Cardiac Enzymes 09/27/21 09/27/21 09/27/21 Range/Units 14:57 14:57 18:45 AST 45 H (14-36) U/L Troponin I <0.012 <0.012 (0.000-0.034) ng/mL 09/27/21 Range/Units 21:34 AST (14-36) U/L Troponin I <0.012 (0.000-0.034) ng/mL Coagulation 09/27/21 09/28/21 Range/Units 14:57 01:00 PT 10.1 (9.0-12.0) sec APTT 19.9 L 38.6 H (22.0-30.0) sec CBC 09/27/21 Range/Units 14:57 WBC 13.7 H (3.8-10.6) k/uL RBC 4.44 (3.80-5.40) m/uL Hgb 14.3 (11.4-16.0) gm/dL Hct 43.7 (34.0-46.0) % Plt Count 354 (150-450) k/uL Comprehensive Metabolic Panel 09/27/21 Range/Units 14:57 Sodium 138 (137-145) mmol/L Potassium 4.4 (3.5-5.1) mmol/L Chloride 112 H (98-107) mmol/L Carbon Dioxide 18 L (22-30) mmol/L BUN 8 (7-17) mg/dL Creatinine 0.63 (0.52-1.04) mg/dL Glucose 100 H (74-99) mg/dL Calcium 8.7 (8.4-10.2) mg/dL AST 45 H (14-36) U/L ALT 20 (4-34) U/L Alkaline Phosphatase 78 (38-126) U/L Total Protein 6.2 L (6.3-8.2) g/dL Albumin 3.2 L (3.5-5.0) g/dL Current Medications Generic Name Dose Route Start Last Admin Trade Name Freq PRN Reason Stop Dose Admin Acetaminophen 1,000 mg 09/27/21 17:18 Acetaminophen Tab 500 Mg Tab PO Q6H PRN Pain Albuterol Sulfate 2 puff 09/27/21 17:18 Albuterol Hfa Inhaler INHALATION RT-Q6H PRN Shortness Of Breath Alprazolam 0.5 mg 09/27/21 21:00 09/27/21 20:26 Alprazolam 0.5 Mg Tab PO 0.5 mg HS CM Administration Aspirin 325 mg 09/28/21 09:00 Aspirin 325 Mg Tab PO DAILY CM Atorvastatin Calcium 80 mg 09/27/21 21:00 09/27/21 20:26 Atorvastatin 80 Mg Tab PO 80 mg HS CM Administration Fluticasone Propionate 2 puff 09/27/21 20:00 09/27/21 20:18 Fluticasone 110 Mcg Inhaler INHALATION Not Given RT-BID CM Formoterol Fumarate 20 mcg 09/27/21 20:00 09/27/21 20:18 Formoterol Fumarate 20 Mcg/2 Ml Nebu INHALATION Not Given RT-BID [facility] Heparin Sodium (Porcine) 0 unit 09/28/21 02:21 09/28/21 02:50 Heparin Sodium 1,000 Un/Ml (10ml Vl) IV 1,678 unit PER PROTOCOL PRN Administration Low PTT Protocol Heparin Sodium/Sodium Chloride 250 mls @ 8.056 mls/hr 09/27/21 17:15 09/28/21 02:50 25,000 unit/ Sodium Chloride IV 14 units/kg/hr .Q24H CM 9.398 mls/hr Titration Protocol 12 UNITS/KG/HR Ibuprofen 400 mg 09/27/21 17:18 Ibuprofen 400 Mg Tab PO Q6HR PRN Pain Ipratropium [place] 0.5 mg 09/28/21 08:00 Ipratropium 0.5 Mg/2.5 Ml Nebu INHALATION RT-QID CM Metoprolol Tartrate 50 mg 09/27/21 17:30 09/27/21 18:38 Metoprolol Tartrate 50 Mg Tab PO 50 mg TID-W/MEALS [facility] Administration Nicotine 1 patch 09/28/21 09:00 Nicotine 14mg/24hr Patch TRANSDERM DAILY [facility] Nitroglycerin 0.4 mg 09/27/21 17:14 Nitroglycerin Sl Tabs 0.4 Mg Tab SUBLINGUAL Q5M PRN Chest Pain Nitroglycerin 1 inch 09/27/21 18:00 09/28/21 05:25 Nitroglycerin Oint 1 Inch/Gm Packet TOPICAL Not Given Q6HR [facility] Pantoprazole Sodium 40 mg 09/28/21 07:30 Pantoprazole 40 Mg Tablet PO DAILY@0730 [facility] Prasugrel 10 mg 09/28/21 09:00 Prasugrel 10 Mg Tab PO DAILY [facility] Intake and Output 09/27/21 09/28/21 09/28/21 22:59 06:59 14:59 Intake Total 64.179 Balance 64.179 Intake: Intake, IV Titration 64.179 Amount Heparin Sod,Pork in 0.45% 64.179 NaCl 25,000 unit In 0.45 % NaCl 1 250ml.bag @ 12 UNITS/KG/HR 8.056 mls/hr IV .Q24H [facility] Rx#: [id number] Other: # Voids 1 2 Weight 67.132 kg 09/27/21 14:57 09/27/21 14:57
== END 2021-09-28 07:47 | disposition left against medical advice (07) ==
LOC: EC 14:07 → 6NMEDSUR 17:20
PROVIDERS: ADMIT Hospitalist; ATTEND Hospitalist
DX: R07.9 Chest pain, unspecified (principal); R74.8 Abnormal levels of other serum enzymes; R74.01 Elevation of levels of liver transaminase levels; I10 Essential (primary) hypertension; J44.9 Chronic obstructive pulmonary disease, unspecified; E11.9 Type 2 diabetes mellitus without complications; E78.5 Hyperlipidemia, unspecified; I25.10 Atherosclerotic heart disease of native coronary artery without angina pectoris; F17.200 Nicotine dependence, unspecified, uncomplicated; Z20.822 Contact with and (suspected) exposure to COVID-19; I25.5 Ischemic cardiomyopathy; I25.2 Old myocardial infarction; J98.11 Atelectasis; I08.0 Rheumatic disorders of both mitral and aortic valves; K57.90 Diverticulosis of intestine, part unspecified, without perforation or abscess without bleeding; L98.9 Disorder of the skin and subcutaneous tissue, unspecified; F32.A Depression, unspecified; F41.9 Anxiety disorder, unspecified; Z53.29 Procedure and treatment not carried out because of patient's decision for other reasons; Z79.82 Long term (current) use of aspirin; Z79.51 Long term (current) use of inhaled steroids; Z79.899 Other long term (current) drug therapy; Z79.84 Long term (current) use of oral hypoglycemic drugs; Z79.02 Long term (current) use of antithrombotics/antiplatelets; Z88.8 Allergy status to other drugs, medicaments and biological substances; Z88.5 Allergy status to narcotic agent; Z90.49 Acquired absence of other specified parts of digestive tract; Z88.0 Allergy status to penicillin; Z87.442 Personal history of urinary calculi; Z87.11 Personal history of peptic ulcer disease; Z90.710 Acquired absence of both cervix and uterus; Z86.69 Personal history of other diseases of the nervous system and sense organs; Z86.16 Personal history of COVID-19; Z95.5 Presence of coronary angioplasty implant and graft; Z80.1 Family history of malignant neoplasm of trachea, bronchus and lung; Z82.49 Family history of ischemic heart disease and other diseases of the circulatory system; Z83.79 Family history of other diseases of the digestive system
CPT/HCPCS: 99291; 96374; 96376; 36415; 93005; 85379; 83880; 80053; 83690; 83735; 84484; 85025; 85610; 85730 ×2; 87635; 71046; G0378 ×2; S4990; J1644 ×3; 99285

== ENCOUNTER 2021-12-27 09:25 | Emergency (ER) | payer MEDICARE, OTHER ==
[2021-12-27 09:49] VITALS: BP 128/79; PULSE 77; RESP 16; TEMP 97.6
--- NOTE | 2021-12-27 10:32 | XR ---
EXAMINATION TYPE: XR chest 2V DATE OF EXAM: 12/27/2021 COMPARISON: Chest x-ray September 27, 2021 HISTORY: Left-sided chest pain. TECHNIQUE: Frontal and lateral views of the chest are obtained. FINDINGS: There is some chronic parenchymal change in the lower lungs without suspicious new focal a ir space opacity, pleural effusion, or pneumothorax seen. The cardiac silhouette size is stable and upper limits of normal. The osseous structures remain demineralized. IMPRESSION: Chronic changes without acute pulmonary process.
[2021-12-27 10:35] LABS: Basophils # (A) 0.2 k/uL (0-0.2); Basophils % (A) 2 %; Eosinophils # (A) 0.3 k/uL (0-0.7); Eosinophils % (A) 4 %; HCT 42.8 % (34.0-46.0); HGB 13.4 gm/dL (11.4-16.0); Lymphocytes # (A) 2.1 k/uL (1.0-4.8); Lymphocytes % (A) 25 %; MCH 31.9 pg (25.0-35.0); MCHC 31.4 g/dL (31.0-37.0); MCV 101.6 fL (80.0-100.0); Mean Platelet Volume 7.8; Monocytes # (A) 0.5 k/uL (0-1.0); Monocytes % (A) 6 %; Neutrophils % (A) 61 %; Platelet Count 333 k/uL (150-450); RBC 4.21 m/uL (3.80-5.40); WBC 8.1 k/uL (3.8-10.6)
[2021-12-27 10:36] LABS: ALT 24 U/L (4-34); AST 59 U/L (14-36); African American GFR (CKD) >90 (>60 ml/min/1.73 sqM); Alkaline Phosphatase 94 U/L (38-126); Anion Gap 5 mmol/L; Blood Urea Nitrogen 4 mg/dL (7-17); Calcium 8.3 mg/dL (8.4-10.2); Carbon Dioxide 23 mmol/L (22-30); Chloride 113 mmol/L (98-107); Glucose 103 mg/dL (74-99); Lipase 330 U/L (23-300); Non-African American GFR(CKD) 81 (>60 ml/min/1.73 sqM); Potassium 3.4 mmol/L (3.5-5.1); Sodium 141 mmol/L (137-145); Total Bilirubin 0.4 mg/dL (0.2-1.3); Total Protein 5.9 g/dL (6.3-8.2)
[2021-12-27 10:45] LABS: INR 0.9 (<1.2); Partial Thromboplastin Time 22.6 sec (22.0-30.0); Prothrombin Time 10.3 sec (9.0-12.0)
--- NOTE | 2021-12-27 10:50 | ED ---
Chest Pain HPI - General Chief Complaint: Chest Pain Stated Complaint: lump on chest, back pain Time Seen by Provider: 12/27/21 09:52 Source: patient, RN notes reviewed Mode of arrival: ambulatory Limitations: no limitations - History of Present Illness Initial Comments: 61-year-old female with history of heart issues who presents today with complaints of left-sided chest pain. She states the pain has achy in nature About a week it feels sore she points her left upper chest wall she states it 7- 8/10 severity when it does come on it increases with movements she has any fevers chills nausea vomiting sweats cough phlegm production she states it does not feel like any prior cardiac discomfort. She does states she's been using her left upper extremity more than usual recently. No other complaints or modifying factors MD Complaint: chest pain - Related Data Home Medications Medication Instructions Recorded Confirmed Aspirin EC [Ecotrin Low Dose] 81 mg PO DAILY 12/19/14 09/27/21 Salmeterol Xinafoate [Serevent 1 puff INHALATION RT-Q12H 04/17/18 09/27/21 Diskus] Umeclidinium [place] [Incruse 1 puff INHALATION RT-DAILY 04/17/18 09/27/21 Ellipta] ALPRAZolam [Xanax] 0.5 mg PO BID PRN 01/31/20 09/27/21 Acetaminophen Tab [Tylenol] 1,000 mg PO Q6H PRN 01/31/20 09/27/21 Albuterol Inhaler [Ventolin Hfa 2 puff INHALATION RT-Q6H PRN 01/31/20 09/27/21 Inhaler] metFORMIN HCL [Glucophage] 500 mg PO DAILY 11/13/20 09/27/21 Metoprolol Tartrate [Lopressor] 50 mg PO TID-W/MEALS 08/18/21 09/27/21 Previous Rx's Medication Instructions Recorded Atorvastatin [Lipitor] 80 mg PO HS #30 tab 11/14/20 Nitroglycerin Sl Tabs [Nitrostat] 0.4 mg SUBLINGUAL Q5M PRN #30 tab 11/14/20 Prasugrel [Effient] 10 mg PO DAILY #30 tab 11/14/20 predniSONE [Deltasone] 20 mg PO BID #10 tab 12/27/21 Allergies Allergy/AdvReac Type Severity Reaction Status Date / Time amoxicillin Allergy Rash/Hives Verified 12/27/21 09:45 codeine Allergy Rash/Hives Verified 12/27/21 09:45 sumatriptan [From Imitrex] AdvReac Nausea & Verified 12/27/21 09:45 Vomiting Review of Systems ROS Statement: Those systems with pertinent positive or pertinent negative responses have been documented in the HPI. ROS Other: All systems not noted in ROS Statement are negative. EKG Findings - EKG Results: EKG: interpreted by ERMD, sinus rhythm (Sinus rhythm of 76. A 147 QRS duration 90 QT since QTC 380/419 possible right ventricular conduction delay nonspecific ST configuration.) Past Medical History Past Medical History: Asthma, COPD, Hyperlipidemia, Hypertension, Myocardial Infarction ([place]), Skin Disorder Additional Past Medical History / Comment(s): diverticulosis, nephrolithiasis- stones in both kidneys with L side worse, migraines, skin sensitive to sun exposure. STOMACH ULCER Last Myocardial Infarction Date:: 09/17/14 History of Any Multi-Drug Resistant Organisms: None Reported Past Surgical History: Cholecystectomy, Heart Catheterization With Stent, Hysterectomy, Orthopedic Surgery Additional Past Surgical History / Comment(s): Lithotripsy, R breast 4 tumors removed all benign, Tumor removed left ear, D & C x 4, colonoscopy, egd, kidney stent, lung RLL mass removed , Right arm surgery x3 Past Anesthesia/Blood Transfusion Reactions: Postoperative Nausea & Vomiting (PONV) Additional Past Anesthesia/Blood Transfusion Reaction / Comment(s): headache for 4 days Date of Last Stent Placement:: Past Psychological History: Anxiety, Depression Smoking Status: Current every day smoker Past Alcohol Use History: None Reported Past Drug Use History: None Reported - Past Family History Father Family Medical History: Cancer, Myocardial Infarction ([place]) Additional Family Medical History / Comment(s): Father had throat and lung cancer. He was a smoker. Mother Family Medical History: Coronary Artery Disease (CAD), Hypertension Additional Family Medical History / Comment(s): Mother has a hiatal hernia that affects her breathing. She also has heart problems General Exam - General Exam Comments Initial Comments: This is a well-developed well-nourished awake alert oriented 3 female Limitations: no limitations General appearance: alert, in no apparent distress Head exam: Present: atraumatic, normocephalic, normal inspection Eye exam: Present: normal appearance, PERRL, EOMI. Absent: scleral icterus, conjunctival injection, periorbital swelling ENT exam: Present: normal exam, mucous membranes moist Neck exam: Present: normal inspection, full ROM, other (I reviewed her bruits). Absent: tenderness, meningismus, lymphadenopathy Respiratory exam: Present: normal lung sounds bilaterally, chest wall tenderness (Reproducible tenderness palpation along the left upper costal sternal margin. No step-off no crepitation this does reproduce the patient's pain on palpation). Absent: respiratory distress, wheezes, rales, rhonchi, stridor Cardiovascular Exam: Present: regular rate, normal rhythm, normal heart sounds. Absent: systolic murmur, diastolic murmur, rubs, gallop, clicks GI/Abdominal exam: Present: soft, normal bowel sounds. Absent: distended, tenderness, guarding, rebound, rigid Extremities exam: Present: normal inspection, full ROM, normal capillary refill. Absent: tenderness, pedal edema, joint swelling, calf tenderness Back exam: Present: normal inspection Neurological exam: Present: alert, oriented X3, CN II-XII intact Psychiatric exam: Present: normal affect, normal mood Skin exam: Present: warm, dry, intact, normal color. Absent: rash Course Vital Signs 12/27/21 09:45 Temperature 97.6 F Pulse Rate 77 Respiratory 16 Rate Blood Pressure 128/79 O2 Sat by Pulse 96 Oximetry Chest Pain MDM - MDM Imaging reviewed no acute findings patient presentation consistent with costochondritis we did discuss the findings to be placed on a short course of steroids she is on antiplatelet medication Disposition Clinical Impression: Costochondritis, Chest wall syndrome Disposition: HOME SELF-CARE Condition: Good Instructions (If sedation given, give patient instructions): Costochondritis (ED) Prescriptions: predniSONE [Deltasone] 20 mg PO BID #10 tab Is patient prescribed a controlled substance at d/c from ED?: No Referrals: Kin Gonzalez DO [Primary Care Provider] - 1-2 days Decision Date: 12/27/21 Decision Time: 13:10
[2021-12-27] MEDS ORDERED: predniSONE 50 MG TAB PO STA (13:03)
== END 2021-12-27 13:22 | disposition home or self-care (01) ==
LOC: EC 09:25
DX: M94.0 Chondrocostal junction syndrome [Tietze] (principal); J44.9 Chronic obstructive pulmonary disease, unspecified; E78.5 Hyperlipidemia, unspecified; I10 Essential (primary) hypertension; I25.2 Old myocardial infarction; F17.200 Nicotine dependence, unspecified, uncomplicated; Z88.5 Allergy status to narcotic agent; Z88.9 Allergy status to unspecified drugs, medicaments and biological substances; Z88.0 Allergy status to penicillin
CPT/HCPCS: 36415; 71046; 80053; 83690; 83735; 83880; 84484; 85025; 85379; 85610; 85730; 93005; 99285

== ENCOUNTER 2022-07-04 16:55 | Emergency (ER) | payer MEDICARE, OTHER ==
[2022-07-04 17:03] VITALS: TEMP 98
[2022-07-04] MEDS ORDERED: SODIUM CHLORIDE 0.9% 500 ML 500 ML IV STA (17:31)
[2022-07-04] MEDS ORDERED: ASPIRIN 81 MG PO STA (17:31)
[2022-07-04] MEDS ORDERED: ALPRAZolam 0.25 MG TAB PO STA (17:31)
--- NOTE | 2022-07-04 17:41 | ED ---
General Adult HPI - General Chief complaint: Chest Pain Stated complaint: chest pain Time Seen by Provider: 07/04/22 17:19 Source: patient, RN notes reviewed Mode of arrival: wheelchair Limitations: no limitations - History of Present Illness Initial comments: This is an anxious 61-year-old female who presents to the emergency Department with complaints of a "butterfly" sensation in her chest. Patient states she had one episode last night, followed by subsequent episode today while at work. Patient reports significantly elevated stress and lack of sleep. States she does have a history of cardiac stents would like her heart checked out, but thin ks her symptoms are related to anxiety. States she does not take anything for anxiety or depression at this time. Denies fever, chills, headache, dizziness, chest pain/tightness/pressure, shortness of breath, abdominal pain, nausea, vomiting, diarrhea, dysuria. - Related Data Home Medications Medication Instructions Recorded Confirmed Aspirin EC [Ecotrin Low Dose] 81 mg PO DAILY 12/19/14 09/27/21 Salmeterol Xinafoate [Serevent 1 puff INHALATION RT-Q12H 04/17/18 09/27/21 Diskus] Umeclidinium [place] [Incruse 1 puff INHALATION RT-DAILY 04/17/18 09/27/21 Ellipta] ALPRAZolam [Xanax] 0.5 mg PO BID PRN 01/31/20 09/27/21 Acetaminophen Tab [Tylenol] 1,000 mg PO Q6H PRN 01/31/20 09/27/21 Albuterol Inhaler [Ventolin Hfa 2 puff INHALATION RT-Q6H PRN 01/31/20 09/27/21 Inhaler] metFORMIN HCL [Glucophage] 500 mg PO DAILY 11/13/20 09/27/21 Metoprolol Tartrate [Lopressor] 50 mg PO TID-W/MEALS 08/18/21 09/27/21 Previous Rx's Medication Instructions Recorded Atorvastatin [Lipitor] 80 mg PO HS #30 tab 11/14/20 Nitroglycerin Sl Tabs [Nitrostat] 0.4 mg SUBLINGUAL Q5M PRN #30 tab 11/14/20 Prasugrel [Effient] 10 mg PO DAILY #30 tab 11/14/20 predniSONE [Deltasone] 20 mg PO BID #10 tab 12/27/21 Allergies Allergy/AdvReac Type Severity Reaction Status Date / Time amoxicillin Allergy Rash/Hives Verified 07/04/22 17:03 codeine Allergy Rash/Hives Verified 07/04/22 17:03 sumatriptan [From Imitrex] AdvReac Nausea & Verified 07/04/22 17:03 Vomiting Review of Systems ROS Statement: Those systems with pertinent positive or pertinent negative responses have been documented in the HPI. ROS Other: All systems not noted in ROS Statement are negative. Past Medical History Past Medical History: Asthma, Coronary Artery Disease (CAD), COPD, Hyperlipi demia, Hypertension, Myocardial Infarction ([place]), Skin Disorder Additional Past Medical History / Comment(s): diverticulosis, nephrolithiasis- stones in both kidneys with L side worse, migraines, skin sensitive to sun exposure. STOMACH ULCER Last Myocardial Infarction Date:: 09/17/14 History of Any Multi-Drug Resistant Organisms: None Reported Past Surgical History: Cholecystectomy, Heart Catheterization With Stent, Hysterectomy, Orthopedic Surgery Additional Past Surgical History / Comment(s): Lithotripsy, R breast 4 tumors removed all benign, Tumor removed left ear, D & C x 4, colonoscopy, egd, kidney stent, lung RLL mass removed , Right arm surgery x3 , 5 cardiac stents Past Anesthesia/Blood Transfusion Reactions: Postoperative Nausea & Vomiting (PONV) Additional Past Anesthesia/Blood Transfusion Reaction / Comment(s): headache for 4 days Date of Last Stent Placement:: Past Psychological History: Anxiety, Depression Smoking Status: Current every day smoker Past Alcohol Use History: None Reported Past Drug Use History: None Reported - Past Family History Father Family Medical History: Cancer, Myocardial Infarction ([place]) Additional Family Medical History / Comment(s): Father had throat and lung c ancer. He was a smoker. Mother Family Medical History: Coronary Artery Disease (CAD), Hypertension Additional Family Medical History / Comment(s): Mother has a hiatal hernia that affects her breathing. She also has heart problems General Exam Limitations: no limitations General appearance: alert, in no apparent distress, anxious Eye exam: Present: normal appearance. Absent: scleral icterus, conjunctival injection ENT exam: Present: normal exam, mucous membranes moist Neck exam: Present: normal inspection, full ROM. Absent: tenderness, meningismus, lymphadenopathy Respiratory exam: Present: normal lung sounds bilaterally. Absent: respiratory distress, wheezes, rales, rhonchi, stridor Cardiovascular Exam: Present: regular rate, normal rhythm, normal heart sounds. Absent: systolic murmur, diastolic murmur, rubs, gallop, clicks GI/Abdominal exam: Present: soft, normal bowel sounds. Absent: distended, tenderness, guarding, rebound, rigid Extremities exam: Present: normal inspection, full ROM, normal capillary refill. Absent: pedal edema, calf tenderness Neurological exam: Present: alert, oriented X3, normal gait Psychiatric exam: Present: anxious (Patient is anxious and elaborates on stressful parenting to situation along with poor sleep and increased workload) Course Vital Signs 07/04/22 07/04/22 17:00 20:34 Temperature 98 F Pulse Rate 83 72 Respiratory 16 18 Rate Blood Pressure 147/92 119/78 O2 Sat by Pulse 97 97 Oximetry - Reevaluation(s) Reevaluation #1: 07/04/22 19:00 Patient updated on results. She is agreeable to stay for repeat troponin and EKG. She has not experienced any additional episodes of fluttering and remains pain-free. Chest x-ray does show mild infiltrate in the right lower lobe. Patient is not experiencing any shortness of breath or difficulty breathing. No leukocytosis. She is afebrile with pulse ox >95% on room air. She will be encouraged to follow up on an outpatient basis for repeat chest x-ray is indicated. 07/04/22 22:00 There was a delay in resulting repeat troponin which was also negative. EKG remained unchanged and patient has not had any return of symptoms. She is pain- free and verbalizes readiness for discharge. Strict return parameters were discussed in detail and close follow-up was encouraged. Family present at bedside. Medical Decision Making - Medical Decision Making This is a 61-year-old female with a history of COPD, CAD, and previous cardiac stenting who presents to the emergency department with complaints of "butterfly" sensation in her chest. Patient has had 2 episodes in the past 24 hours. She attributes this to increased stress and anxiety due to difficulties in her home life, however given her cardiac history she wanting to have her heart checked out. I did recommend hospital admission, however patient declined. Through shared decision making, patient was willing to stay for repeat troponin and EKG. Laboratory studies were obtained. Troponin was negative 2. EKGs show no acute changes from multiple previous EKGs reviewed. Chest x-ray did show a mild right lower lobe infiltrate for which she will follow-up on an outpatient basis for. She demonstrates no concern for pneumonia or infectious process therefore antibiotic treatment was deferred for reevaluation. Though I agree with patient that her symptoms of palpitations are likely due to anxiety, I instructed her to follow up closely with her PCP or radiological equipment specialist. Strict return parameters were discussed in detail. Patient verbalizes understanding and agrees with this plan. Attending: Pino. - Lab Data Result diagrams: 07/04/22 17:38 07/04/22 17:38 Lab Results 07/04/22 07/04/22 07/04/22 Range/Units 17:38 17:38 17:38 WBC 8.3 (3.8-10.6) k/uL RBC 4.77 (3.80-5.40) m/uL Hgb 15.4 (11.4-16.0) gm/dL Hct 46.0 (34.0-46.0) % MCV 96.5 (80.0-100.0) fL MCH 32.3 (25.0-35.0) pg MCHC 33.5 (31.0-37.0) g/dL RDW 12.2 (11.5-15.5) % Plt Count 351 (150-450) k/uL MPV 7.6 Neutrophils % 58 % Lymphocytes % 29 % Monocytes % 6 % Eosinophils % 3 % Basophils % 2 % Neutrophils # 4.8 (1.3-7.7) k/uL Lymphocytes # 2.4 (1.0-4.8) k/uL Monocytes # 0.5 (0-1.0) k/uL Eosinophils # 0.3 (0-0.7) k/uL Basophils # 0.1 (0-0.2) k/uL PT 10.0 (9.0-12.0) sec INR 0.9 (<1.2) APTT 23.0 (22.0-30.0) sec Sodium (137-145) mmol/L Potassium (3.5-5.1) mmol/L Chloride (98-107) mmol/L Carbon Dioxide (22-30) mmol/L Anion Gap mmol/L BUN (7-17) mg/dL Creatinine (0.52-1.04) mg/dL Est GFR (CKD-EPI)AfAm (>60 ml/min/1.73 sqM) Est GFR (CKD-EPI)NonAf (>60 ml/min/1.73 sqM) Glucose (74-99) mg/dL Calcium (8.4-10.2) mg/dL Magnesium (1.6-2.3) mg/dL Total Bilirubin (0.2-1.3) mg/dL AST (14-36) U/L ALT (4-34) U/L Alkaline Phosphatase (38-126) U/L Troponin I (0.000-0.034) ng/mL Total Protein (6.3-8.2) g/dL Albumin (3.5-5.0) g/dL Urine Color Light Yellow Urine Appearance Cloudy H (Clear) Urine pH 5.0 (5.0-8.0) Ur Specific [place] 1.018 (1.001-1.035) Urine Protein Negative (Negative) Urine Glucose (UA) 4+ H (Negative) Urine Ketones Negative (Negative) Urine Blood Negative (Negative) Urine Nitrite Negative (Negative) Urine Bilirubin Negative (Negative) Urine Urobilinogen <2.0 (<2.0) mg/dL Ur Leukocyte Esterase Negative (Negative) Urine RBC <1 (0-5) /hpf Urine WBC 1 (0-5) /hpf Ur Squamous Epith Cells 1 (0-4) /hpf Urine Mucus Rare H (None) /hpf 07/04/22 07/04/22 07/04/22 Range/Units 17:38 17:38 20:24 WBC (3.8-10.6) k/uL RBC (3.80-5.40) m/uL Hgb (11.4-16.0) gm/dL Hct (34.0-46.0) % MCV (80.0-100.0) fL MCH (25.0-35.0) pg MCHC (31.0-37.0) g/dL RDW (11.5-15.5) % Plt Count (150-450) k/uL MPV Neutrophils % % Lymphocytes % % Monocytes % % Eosinophils % % Basophils % % Neutrophils # (1.3-7.7) k/uL Lymphocytes # (1.0-4.8) k/uL Monocytes # (0-1.0) k/uL Eosinophils # (0-0.7) k/uL Basophils # (0-0.2) k/uL PT (9.0-12.0) sec INR (<1.2) APTT (22.0-30.0) sec Sodium 142 (137-145) mmol/L Potassium 3.9 (3.5-5.1) mmol/L Chloride 111 H (98-107) mmol/L Carbon Dioxide 23 (22-30) mmol/L Anion Gap 8 mmol/L BUN 7 (7-17) mg/dL Creatinine 0.82 (0.52-1.04) mg/dL Est GFR (CKD-EPI)AfAm >90 (>60 ml/min/1.73 sqM) Est GFR (CKD-EPI)NonAf 79 (>60 ml/min/1.73 sqM) Glucose 104 H (74-99) mg/dL Calcium 9.3 (8.4-10.2) mg/dL Magnesium 1.9 (1.6-2.3) mg/dL Total Bilirubin 0.3 (0.2-1.3) mg/dL AST 24 (14-36) U/L ALT 15 (4-34) U/L Alkaline Phosphatase 85 (38-126) U/L Troponin I <0.012 <0.012 (0.000-0.034) ng/mL Total Protein 6.8 (6.3-8.2) g/dL Albumin 4.2 (3.5-5.0) g/dL Urine Color Urine Appearance (Clear) Urine pH (5.0-8.0) Ur Specific [place] (1.001-1.035) Urine Protein (Negative) Urine Glucose (UA) (Negative) Urine Ketones (Negative) Urine Blood (Negative) Urine Nitrite (Negative) Urine Bilirubin (Negative) Urine Urobilinogen (<2.0) mg/dL Ur Leukocyte Esterase (Negative) Urine RBC (0-5) /hpf Urine WBC (0-5) /hpf Ur Squamous Epith Cells (0-4) /hpf Urine Mucus (None) /hpf - EKG Data EKG shows normal: sinus rhythm Rate: normal EKG Comments: EKG obtained at 1719 shows sinus rhythm with borderline left axis deviation, incomplete right bundle branch, and ST deviation and moderate T wave abnormality in leads 1, aVL, V5, and V6. Ventricular rate 77, MT interval 170, QRS duration 102, QT/QTc 412/444. Interpretation: Abnormal ECG. EKG compared to previous on . Both show incomplete right bundle branch block. EKG compared to previous on , both of which shows ST deviation and moderate T wave abnormality in leads 1, aVL, V5, V6 Repeat EKG obtained at 2024 shows sinus rhythm incomplete right bundle branch, and ST deviation and moderate T wave abnormality in leads 2 and aVF. Ventricular rate 76, MT interval 160, QRS duration 113, QT/QTC 381/411. Interpretation abnormal ECG. EKG compared with previous on . Both show incomplete right bundle branch and ST deviation and moderate T wave abnormality in leads 2 and aVF - Radiology Data Radiology results: report reviewed, image reviewed Two-view chest x-ray was obtained. Report was reviewed in its entirety. Impression per Dr. Tolliver is there is some right lower lobe infiltrate which is mostly new compared to the old exam. Follow-up is recommended to show stability or clearing. Normal heart. Disposition Clinical Impression: Palpitations with regular cardiac rhythm, Anxiety Disposition: HOME SELF-CARE Condition: Stable Instructions (If sedation given, give patient instructions): Heart Palpitations (ED), Anxiety (ED) Additional Instructions: Continue taking your home medications as prescribed. Rest. Minimize stress. Follow-up with your PCP for a recheck in 48 hours. Return to the emergency department with any new, worsening, or concerning symptoms including chest pain, shortness of breath, or difficulty breathing. Is patient prescribed a controlled substance at d/c from ED?: No Referrals: Kin Gonzalez DO [Primary Care Provider] - 1-2 days Time of Disposition: 22:04
[2022-07-04 17:54] LABS: Appearance,Urine Cloudy (Clear); Bilirubin,Urine Negative (Negative); Blood,Urine Negative (Negative); Color,Urine Light Yellow; Glucose,Urine (UA) 4+ (Negative); Ketones,Urine Negative (Negative); Leukocyte Esterase,Urine Negative (Negative); Mucus,Urine Rare /hpf; Nitrite,Urine Negative (Negative); Protein,Urine Negative (Negative); RBC,Urine <1 /hpf (0-5); Specific Gravity,Urine 1.018 (1.001-1.035); Squamous Epithelial Cell,Urine 1 /hpf (0-4); Urobilinogen,Urine <2.0 mg/dL (<2.0); WBC,Urine 1 /hpf (0-5)
[2022-07-04 18:12] LABS: Basophils # (A) 0.1 k/uL (0-0.2); Basophils % (A) 2 %; Eosinophils # (A) 0.3 k/uL (0-0.7); Eosinophils % (A) 3 %; HGB 15.4 gm/dL (11.4-16.0); Lymphocytes # (A) 2.4 k/uL (1.0-4.8); Lymphocytes % (A) 29 %; MCH 32.3 pg (25.0-35.0); MCHC 33.5 g/dL (31.0-37.0); MCV 96.5 fL (80.0-100.0); Mean Platelet Volume 7.6; Monocytes # (A) 0.5 k/uL (0-1.0); Monocytes % (A) 6 %; Neutrophils # (A) 4.8 k/uL (1.3-7.7); Neutrophils % (A) 58 %; Platelet Count 351 k/uL (150-450); RBC 4.77 m/uL (3.80-5.40); RDW 12.2 % (11.5-15.5); WBC 8.3 k/uL (3.8-10.6)
--- NOTE | 2022-07-04 18:15 | XR ---
EXAMINATION TYPE: XR chest 2V DATE OF EXAM: 07/04/2022 COMPARISON: 12/27/2021 HISTORY: Chest pain TECHNIQUE: FINDINGS: There is some infiltrate measuring approximately 2 cm in the right lower lobe inferior to t he right pulmonary hilum. There is minimal linear density lateral left lung base. No heart failure. H eart size is normal. IMPRESSION: There is some right lower lobe infiltrate which is mostly new compared to the old exam. F ollow-up is recommended to show stability or clearing. Normal heart.
[2022-07-04 18:21] LABS: INR 0.9 (<1.2)
[2022-07-04 18:30] LABS: ALT 15 U/L (4-34); AST 24 U/L (14-36); African American GFR (CKD) >90 (>60 ml/min/1.73 sqM); Albumin 4.2 g/dL (3.5-5.0); Alkaline Phosphatase 85 U/L (38-126); Anion Gap 8 mmol/L; Blood Urea Nitrogen 7 mg/dL (7-17); Calcium 9.3 mg/dL (8.4-10.2); Carbon Dioxide 23 mmol/L (22-30); Chloride 111 mmol/L (98-107); Glucose 104 mg/dL (74-99); Magnesium 1.9 mg/dL (1.6-2.3); Non-African American GFR(CKD) 79 (>60 ml/min/1.73 sqM); Potassium 3.9 mmol/L (3.5-5.1); Sodium 142 mmol/L (137-145); Total Bilirubin 0.3 mg/dL (0.2-1.3); Total Protein 6.8 g/dL (6.3-8.2)
[2022-07-04 20:34] VITALS: BP 119/78; PULSE 72; RESP 18
== END 2022-07-04 22:19 | disposition home or self-care (01) ==
LOC: EC 16:55
DX: R00.2 Palpitations (principal); F41.9 Anxiety disorder, unspecified; F17.200 Nicotine dependence, unspecified, uncomplicated; I25.10 Atherosclerotic heart disease of native coronary artery without angina pectoris; J44.9 Chronic obstructive pulmonary disease, unspecified; I11.9 Hypertensive heart disease without heart failure; I25.2 Old myocardial infarction; E78.5 Hyperlipidemia, unspecified; F32.A Depression, unspecified; Z88.0 Allergy status to penicillin; Z88.5 Allergy status to narcotic agent; Z88.9 Allergy status to unspecified drugs, medicaments and biological substances; Z79.82 Long term (current) use of aspirin; Z79.899 Other long term (current) drug therapy; Z79.51 Long term (current) use of inhaled steroids; Z79.84 Long term (current) use of oral hypoglycemic drugs
CPT/HCPCS: 36415; 71046; 80053; 81001; 83735; 84484; 85025; 85610; 85730; 93005; 96360; 99285; 99291

== ENCOUNTER → 2022-08-18 | Outpatient (CLI) | payer MEDICARE, OTHER ==
--- NOTE | 2022-08-18 09:49 | XR ---
EXAMINATION TYPE: XR chest 2V DATE OF EXAM: 08/18/2022 COMPARISON: 07/04/2022 TECHNIQUE: PA and lateral views submitted. HISTORY: Abnormal x-ray FINDINGS: There is linear changes in the right perihilar region compatible scarring or atelectasis no focal pne umonia or pleural effusion. No pneumothorax. There is prominence of the right infrahilar region. Kennedy elate for previous coronary artery stenting. IMPRESSION: 1. Recommend CT of the chest to assess the right infrahilar region for adenopathy or mass.
== END | disposition home or self-care (01) ==
LOC: RADXRMAIN 09:17
PROVIDERS: ATTEND Nurse Practitioner Family
DX: R91.8 Other nonspecific abnormal finding of lung field (principal)
CPT/HCPCS: 71046

== ENCOUNTER 2022-09-01 18:52 | Emergency (ER) | payer MEDICARE, OTHER ==
[2022-09-01 19:00] LABS: Glucose,Whole Blood 124 mg/dL (70-110)
[2022-09-01 19:02] VITALS: BP 155/84; PULSE 85; RESP 16; TEMP 98
== END 2022-09-01 20:05 | disposition left against medical advice (07) ==
LOC: EC 18:52
DX: Z53.21 Procedure and treatment not carried out due to patient leaving prior to being seen by health care provider (principal)
CPT/HCPCS: 36415; 99499

== ENCOUNTER → 2022-09-04 | Outpatient (CLI) | payer MEDICARE, OTHER ==
--- NOTE | 2022-09-06 13:27 | CT ---
EXAMINATION TYPE: CT chest wo con DATE OF EXAM: 09/04/2022 COMPARISON: Prior CT chest August 18, 2021 and older CTs. Most recent chest x-ray August 18, 2022. HISTORY: abn finding lung field, recent abnormal x-ray. CT DLP: 185 mGycm. Automated Exposure Control for Dose Reduction was Utilized. TECHNIQUE: CT scan of the thorax is performed without IV contrast. FINDINGS: LUNGS: There is persistent lobulated thin-walled cyst in the right lower lobe measuring 3.2 x 1.3 cm axial image 39 not significantly changed in size and appearance from most recent CT. There is increas ing surrounding consolidation and/or atelectasis on current study. There is slightly larger superior mass or less likely masslike consolidation measuring 3.3 x 2.6 cm axial image 35. Mild underlying emp hysematous change is redemonstrated. Mild bibasilar linear scarring redemonstrated. Left lung remains clear. No pleural effusion or pneumothorax seen bilaterally. MEDIASTINUM: Lack of IV contrast is noted to limit evaluation for mediastinal and especially hilar ad enopathy. There are no definitive new Greater than 1 cm mediastinal lymph nodes. No cardiomegaly or pericardial effusion is seen. Three-vessel coronary artery calcification and/or stents are redemonst rated. OTHER: Slight scoliotic curvature.. IMPRESSION: Area of concern on recent x-ray corresponds to enlarging mass or masslike consolidation i n the right lower lobe. Neoplasm needs to be considered. Further workup and follow-up advised. Advise pulmonology referral. Advise bronchoscopy and/or PET/CT to further evaluate.
== END | disposition home or self-care (01) ==
LOC: RADCTMAIN 15:56
PROVIDERS: ATTEND Family Medicine
DX: R91.8 Other nonspecific abnormal finding of lung field (principal)
CPT/HCPCS: 71250

== ENCOUNTER → 2022-12-10 | Outpatient (CLI) | payer MEDICARE, OTHER ==
[~2022-12-10] MED LIST changes: -LACTATED RINGERS 1,000 ML IV SCH; +REGADENOSON 0.4 MG/5 ML SYRINGE IV PRN
--- NOTE | 2022-12-10 12:22 | CA ---
Lexiscan Nuclear Stress Test Report Name: [facility] Exam Date: 12/10/2022 10:24 Exam Location: [facility] Stress Ht (in): 61 Wt (lb): 133 BSA: 1.59 Ordering Phys: Kin Gonzalez DO Referring Phys: Becky Perdomo Technologist: Mauri Camara Age: 62 Gender: F : 1960 Procedure CPT: Indications: R91.8 OTHER NONSPECIFIC ABNORMAL FINDING OF LUNG F ICD-10 Codes: Patient History: Medications: Meds past 24 hrs: Pretest Chest Pain: STRESS TEST Lexiscan Protocol Exercise Duration (min:sec): 02:[address] Depressions (mm): Angina Score: Sue Score: Resting HR (bpm): 69 Peak HR (bpm): 92 Resting BP (mmHg): 120 / 74 Peak BP (mmHg): 128 / 83 MPHR: 160 Target HR: 136 % MPHR: 57 METS: 1.0 Total Dose: Peak Dose: Atropine: Double Product: 13453 BP Response: Stress Termination: PROTOCOL COMPLETE Stress Symptoms: NO SYMPTOMS Stress Summary: ECG ANALYSIS Resting ECG: Sinus rhythm. Normal conduction. No arrhythmias. Non-specific ST-T wave changes. Stress ECG: No ECG changes from baseline with Lexiscan infusion. CONCLUSIONS No ECG evidence of ischemia with Lexiscan infusion. Nuclear test results to follow. Dr. J Carlos Lozada MD (Electronically Signed) Final Date: 10 Dec 2022 12:21
--- NOTE | 2022-12-10 12:34 | NM ---
EXAMINATION TYPE: NM stress lexiscan cardiolite DATE OF EXAM: 12/10/2022 COMPARISON: NONE CLINICAL INDICATION: Female, 62 years old with history of R91.8 OTHER NONSPECIFIC ABNORMAL FINDING OF LUNG F; TECHNIQUE: After the intravenous administration of 9.5 mCi Tc 99m Sestamibi - Cardiolite resting SPE CT images acquired 45 minutes post injection. The patient received 0.4mg Lexiscan, 24.7 mCi Tc 99m Sestamibi - Stress images obtained [address] injection FINDINGS: Review of stress and rest SPECT images demonstrates no distinct perfusion abnormality. Gated analysi s shows normal wall motion with an estimated left ventricular ejection fraction of 58 %. IMPRESSION: No scintigraphic evidence for reversible ischemia.
== END | disposition home or self-care (01) ==
LOC: RADNMMAIN 08:49
PROVIDERS: ATTEND Family Medicine
DX: R91.8 Other nonspecific abnormal finding of lung field (principal)
CPT/HCPCS: 93017; 78452; A9500; J2785

== ENCOUNTER 2023-01-12 12:35 | Emergency (ER) | payer MEDICARE, OTHER ==
[2023-01-12] MEDS ORDERED: HYDROmorphone 1 MG/ML 1 ML SYRINGE IM STA (13:23)
--- NOTE | 2023-01-12 13:28 | ED ---
General Adult HPI - General Chief complaint: Recheck/Abnormal Lab/Rx Stated complaint: pain Time Seen by Provider: 01/12/23 13:16 Source: patient, RN notes reviewed, old records reviewed Mode of arrival: ambulatory Limitations: no limitations - History of Present Illness Initial comments: 62-year-old female presenting with postoperative pain. Patient had surgery performed,in [place] for lung cancer on the right. She states this was an attempt at cancer removal however there was issues in the surgery was not completed. She had a chest tube in which has been subsequently removed. She's had pain since the operation which was performed on December 18. She states that the [place] she is taking at home is not removing her pain well. She has planned con tinued outpatient workup including brain CT and PET scan. She is scheduled to start chemotherapy within the month. She denies dyspnea. The pain is localized to the site of incision and chest tube placement. - Related Data Home Medications Medication Instructions Recorded Confirmed Aspirin EC [Ecotrin Low Dose] 81 mg PO DAILY 12/19/14 09/27/21 Salmeterol Xinafoate [Serevent 1 puff INHALATION RT-Q12H 04/17/18 09/27/21 Diskus] Umeclidinium [place] [Incruse 1 puff INHALATION RT-DAILY 04/17/18 09/27/21 Ellipta] ALPRAZolam [Xanax] 0.5 mg PO BID PRN 01/31/20 09/27/21 Acetaminophen Tab [Tylenol] 1,000 mg PO Q6H PRN 01/31/20 09/27/21 Albuterol Inhaler [Ventolin Hfa 2 puff INHALATION RT-Q6H PRN 01/31/20 09/27/21 Inhaler] metFORMIN HCL [Glucophage] 500 mg PO DAILY 11/13/20 09/27/21 Metoprolol Tartrate [Lopressor] 50 mg PO TID-W/MEALS 08/18/21 09/27/21 Previous Rx's Medication Instructions Recorded Atorvastatin [Lipitor] 80 mg PO HS #30 tab 11/14/20 Nitroglycerin Sl Tabs [Nitrostat] 0.4 mg SUBLINGUAL Q5M PRN #30 tab 11/14/20 Prasugrel [Effient] 10 mg PO DAILY #30 tab 11/14/20 predniSONE [Deltasone] 20 mg PO BID #10 tab 12/27/21 Allergies Allergy/AdvReac Type Severity Reaction Status Date / Time amoxicillin Allergy Rash/Hives Verified 01/12/23 13:09 codeine Allergy Rash/Hives Verified 01/12/23 13:09 sumatriptan [From Imitrex] AdvReac Nausea & Verified 01/12/23 13:09 Vomiting Review of Systems ROS Statement: Those systems with pertinent positive or pertinent negative responses have been documented in the HPI. ROS Other: All systems not noted in ROS Statement are negative. Past Medical History Past Medical History: Asthma, Coronary Artery Disease (CAD), Cancer, COPD, Diabetes Mellitus, Hyperlipidemia, Hypertension, Myocardial Infarction ([place]), Skin Disorder Additional Past Medical History / Comment(s): diverticulosis, nephrolithiasis- stones in both kidneys with L side worse, migraines, skin sensitive to sun exposure. STOMACH ULCER , rt lung cancer Last Myocardial Infarction Date:: 09/17/14 History of Any Multi-Drug Resistant Organisms: None Reported Past Surgical History: Cholecystectomy, Heart Catheterization With Stent, Hysterectomy, Orthopedic Surgery Additional Past Surgical History / Comment(s): Lithotripsy, R breast 4 tumors removed all benign, Tumor removed left ear, D & C x 4, colonoscopy, egd, kidney stent, lung RLL mass removed , Right arm surgery x3 , 5 cardiac stents Past Anesthesia/Blood Transfusion Reactions: Postoperative Nausea & Vomiting (PONV) Additional Past Anesthesia/Blood Transfusion Reaction / Comment(s): headache for 4 days Date of Last Stent Placement:: Past Psychological History: Anxiety, Depression Smoking Status: Current every day smoker Past Alcohol Use History: None Reported Past Drug Use History: None Reported - Past Family History Father Family Medical History: Cancer, Myocardial Infarction ([place]) Additional Family Medical History / Comment(s): Father had throat and lung cancer. He was a smoker. Mother Family Medical History: Coronary Artery Disease (CAD), Hypertension Additional Family Medical History / Comment(s): Mother has a hiatal hernia that affects her breathing. She also has heart problems General Exam Limitations: no limitations General appearance: alert, in no apparent distress Head exam: Present: atraumatic, normocephalic Eye exam: Present: normal appearance, PERRL Neck exam: Present: normal inspection. Absent: tenderness, meningismus Respiratory exam: Present: normal lung sounds bilaterally, chest wall tenderness (Tenderness over the incision site without erythema, incision is well-healed no induration, no drainage). Absent: respiratory distress, wheezes, rales Cardiovascular Exam: Present: regular rate, normal rhythm GI/Abdominal exam: Present: soft. Absent: distended, tenderness Extremities exam: Present: normal inspection, normal capillary refill. Absent: pedal edema Neurological exam: Present: alert, oriented X3, CN II-XII intact. Absent: motor sensory deficit Psychiatric exam: Present: normal affect, normal mood Skin exam: Present: warm, dry, intact Course Vital Signs 01/12/23 01/12/23 13:05 13:36 Temperature 97.5 F L Pulse Rate 75 78 Respiratory 20 Rate Blood Pressure 115/76 146/83 O2 Sat by Pulse 97 97 Oximetry Medical Decision Making - Medical Decision Making Was pt. sent in by a medical professional or institution ([facility], [employer], urgent care, hospital, or senior care...) When possible be specific @ -No Did you speak to anyone other than the patient for history (EMS, parent, family, police, friend...)? What history was obtained from this source @ -No Did you review nursing and triage notes (agree or disagree)? Why? @ -I reviewed and agree with nursing and triage notes Were old charts reviewed (outside hosp., previous admission, EMS record, old EKG, old radiological studies, urgent care reports/EKG's, senior care records)? Report findings @ -[Previous x-rays Differential Diagnosis (chest pain, altered mental status, abdominal pain women, abdominal pain men, vaginal bleeding, weakness, fever, dyspnea, syncope, headache, dizziness, GI bleed, back pain, seizure, CVA, palpatations, mental health, musculoskeletal)? @ -Pneumothorax, hemothorax, pleural effusion EKG interpreted by me (3pts min.). @ -As above X-rays interpreted by me (1pt min.). @ -[Chest x-ray showing right-sided spiculated mass without pneumothorax or effusion CT interpreted by me (1pt min.). @ -None done U/S interpreted by me (1pt. min.). @ -None done What testing was considered but not performed or refused? (CT, X-rays, U/S, labs)? Why? @ -None What meds were considered but not given or refused? Why? @ -None Did you discuss the management of the patient with other professionals (professionals i.e. , PA, INSIDE SALES LEAD, lab, RT, psych nurse, administrator social welfare, school boat driver, teacher, ground nuclear weapons assembly officer, social work case manager)? Give summary @ -No Was smoking cessation discussed for >3mins.? @ -No Was critical care preformed (if so, how long)? @ -No Were there social determinants of health that impacted care today? How? (Homelessness, low income, unemployed, alcoholism, drug addiction, transportation, low edu. Level, literacy, decrease access to med. care, group home, rehab)? @ -No Was there de-escalation of care discussed even if they declined (Discuss DNR or withdrawal of care, Hospice)? DNR status @ -No What co-morbidities impacted this encounter? (DM, HTN, Smoking, COPD, CAD, Cancer, CVA, ARF, Chemo, Hep., AIDS, mental health diagnosis, sleep apnea, morbid obesity)? @ -[Lung cancer Was patient admitted / discharged? Hospital course, mention meds given and route, prescriptions, significant lab abnormalities, going to OR and other pertinent info. @ -62-year-old female with right-sided lateral chest pain at the site of incision from prior thoracotomy. Incision is well-healed. The site of the chest tube is well-healed there is no skin changes, no erythema. There is tenderness to palpation. Chest x-ray shows right-sided lung mass, no pneumothorax, no effusion. Patient's issues pain related without an identified emergency at this time. She has good follow-up with her primary care physician and with her team at [facility] Undiagnosed new problem with uncertain prognosis? @ -No Drug Therapy requiring intensive monitoring for toxicity (Heparin, Nitro, Insulin, Cardizem)? @ -No Were any procedures done? @ -No Diagnosis/symptom? @ -[Postoperative pain Acute, or Chronic, or Acute on Chronic? @ -Chronic Uncomplicated (without systemic symptoms) or Complicated (systemic symptoms)? @ -[Complicated Side effects of treatment? @ -No Exacerbation, Progression, or Severe Exacerbation? @ -No Poses a threat to life or bodily function? How? (Chest pain, [place], [place], pneumonia, PE, COPD, DKA, ARF, appy, cholecystitis, CVA, Diverticulitis, Homicidal, Suicidal, threat to staff... and all critical care pts) @ -[Yes, lung cancer Disposition Clinical Impression: Postoperative pain Disposition: HOME SELF-CARE Condition: Fair Instructions (If sedation given, give patient instructions): Lung Cancer (DC) Is patient prescribed a controlled substance at d/c from ED?: No Referrals: Kin Gonzalez DO [Primary Care Provider] - 1-2 days Time of Disposition: 14:19
[2023-01-12 13:39] VITALS: BP 146/83; PULSE 78
--- NOTE | 2023-01-12 14:06 | XR ---
EXAMINATION TYPE: XR chest 2V DATE OF EXAM: 01/12/2023 COMPARISON: 08/18/2022 HISTORY: Shortness of breath TECHNIQUE: Frontal and lateral views of the chest are obtained. FINDINGS: Scattered senescent parenchymal changes noted. Hyperinflation compatible with COPD. There is interval postoperative placement of sutures right perihilar region. There is enlarging massl lorie density right infrahilar region. Pleural thickening left lung base. Heart size is stable. Mediastinal structures are stable and grossly unremarkable. No evidence for hilar prominence. Degenerative changes dorsal spine. IMPRESSION: 1. There is interval postoperative placement of sutures right perihilar region. There is enlarging ma sslike density right infrahilar region. Pleural thickening left lung base.
[2023-01-12 14:26] VITALS: RESP 17; TEMP 97.6
== END 2023-01-12 14:26 | disposition home or self-care (01) ==
LOC: EC 12:35
DX: G89.18 Other acute postprocedural pain (principal); J44.9 Chronic obstructive pulmonary disease, unspecified; I25.10 Atherosclerotic heart disease of native coronary artery without angina pectoris; E11.9 Type 2 diabetes mellitus without complications; I10 Essential (primary) hypertension; I25.2 Old myocardial infarction; F41.9 Anxiety disorder, unspecified; F32.A Depression, unspecified; F17.200 Nicotine dependence, unspecified, uncomplicated; Z79.82 Long term (current) use of aspirin; Z79.84 Long term (current) use of oral hypoglycemic drugs; Z79.899 Other long term (current) drug therapy; Z88.0 Allergy status to penicillin; Z88.5 Allergy status to narcotic agent; Z79.51 Long term (current) use of inhaled steroids; Z88.8 Allergy status to other drugs, medicaments and biological substances
CPT/HCPCS: 71046; 99284; 96372; J1170